=== PATIENT | female | born 1940 | race African-American/Black ===

== ENCOUNTER 2019-05-18 22:59 | Inpatient (IN) | payer MEDICARE ==
[~2019-05-18] VITALS: Ht 170.2 cm; Wt 51.7 kg
[2019-05-18 23:00] VITALS: BP 124/72
--- NOTE | 2019-05-18 23:00 | NUR ---
ED Nurse Note: patient [facility] c/o abdominal pain from home. EMS states that the patient was hypotensive at first in the 80s. at time of arrival patient's blood pressure is 105/72. patient rates her pain a 10/10 on her right lower quadrant. patient denies any nausea and vomiting.
[2019-05-18] MEDS ORDERED: Isovue-300 100ml vial INJ PRN (23:15)
[2019-05-18] MEDS ORDERED: Morphine Sulfate 2mg/ml Inj(IV/IM USE ONLY) IVP ONE (23:15)
--- NOTE | 2019-05-18 23:15 | Emergency Room Report ---
History of Present Illness General Chief Complaint: To Be Triaged Source: Patient, EMS Present Illness HPI The patient presents with abdominal pain that is intermittent. At times it severe at 10/10 but other times is 6/10. It never fully goes away. Been worsening over the last 2 days. She is now moved her bowels for 2 days. She thinks that might be a problem. When I asked her about constipation she denies it. She denies diarrhea also she is not passing any blood in her stool. She not felt any nausea. Her weight is been constant. She denies fevers or chills. There is no dysuria. Not taken any medication for the pain. The patient has a history of colon CA that was diagnosed in 1999. She was undergoing chemotherapy but kept on having to going to ICU because of this. She stopped the chemotherapy and has had no more treatment for the colon cancer since that time. Allergies: Coded Allergies: IODINE (Verified Allergy, Unknown, 05/18/19) Patient History Past Medical History: see triage record, other - Colon cancer Past Surgical History: other - Bowel surgery, bilateral hip surgery, spinal fusion Social History: Reports: smoking Social History Narrative Lives by herself Reviewed Nursing Documentation: PMH: Agreed; PSxH: Agreed Nursing Documentation-PMH Past Medical History: No History, Except For Hx Hypertension: Yes Review of Systems All Other Systems: negative except mentioned in HPI Physical Exam Vital Signs Date Time Temp Pulse Resp B/P (MAP) Pulse Ox O2 Delivery O2 Flow Rate FiO2 05/18/19 22:56 98.1 82 18 107/61 (76) 98 Room Air Sp02 EP Interpretation: reviewed, normal General Appearance: alert, GCS 15, Chronically Ill Head: normocephalic Eyes: bilateral eye PERRL ENT: moist mucus membranes Neck: supple Respiratory: lungs clear, normal breath sounds Cardiovascular #1: regular rate, rhythm Cardiovascular #2: 2+ radial (R) Gastrointestinal: normal inspection, normal bowel sounds, soft, no mass, no guarding, no rebound, distended - Minimally, tenderness - Lower abdomen Genitourinary: no CVA tenderness Musculoskeletal: back normal, normal range of motion Neurologic: alert, oriented x3, grossly normal Psychiatric: mood/affect normal, depressed affect Skin: no rash Medical Decision Making Diagnostic Impression: Primary Impression: Small bowel obstruction Additional Impressions: Abdominal pain Qualified Codes: R10.30 - Lower abdominal pain, unspecified UTI (urinary tract infection) Qualified Codes: N39.0 - Urinary tract infection, site not specified Hyponatremia Renal insufficiency ER Course Patient with a history of colon cancer with chemotherapy that was halted presents with lower abdominal pain for 2 days with lack of moving her bowels. Differential includes small bowel obstruction, impaction, constipation, diverticulitis, UTI amongst others. She is tender and distended. Evaluation with EKG, chest x-ray CT the abdomen and pelvis. In addition she will get IV hydration and laboratory evaluation. She will be treated with analgesia. EKG with no injury. Chest x-ray without seeing the left costophrenic angle there is no infiltrate and no evidence of effusion the maria victoria are prominent. Abdomen films with spinal fusion bilateral hip replacements and diffuse surgical clips without evidence of obstruction. White count normal. No anemia. CMP with low sodium and elevated creatinine. It improved with IV hydration and analgesia. Delayed as CT scan not being read for several hours. Urinalysis with pyuria and Rocephin started. CT scan with small bowel obstruction. Stomach not distended and abdomen not distended. NG tube deferred at the moment. Pain is improved. Patient resting and sleeping. Admit medical floor Dr. Li. He states he will consult Dr. Verduzco. Laboratory Tests Test 05/18/19 23:30 05/19/19 01:10 White Blood Count 8.1 K/UL (4.8-10.8) Red Blood Count 3.72 M/UL (4.20-5.40) L Hemoglobin 14.0 G/DL (12.0-16.0) Hematocrit 38.8 % (37.0-47.0) Mean Corpuscular Volume 104 FL (80-99) H Mean Corpuscular Hemoglobin 37.6 PG (27.0-31.0) H Mean Corpuscular Hemoglobin Concent 36.0 G/DL (32.0-36.0) Red Cell Distribution Width 11.6 % (11.6-14.8) Platelet Count 294 K/UL (150-450) Mean Platelet Volume 5.7 FL (6.5-10.1) L Neutrophils (%) (Auto) % (45.0-75.0) Lymphocytes (%) (Auto) % (20.0-45.0) Monocytes (%) (Auto) % (1.0-10.0) Eosinophils (%) (Auto) % (0.0-3.0) Basophils (%) (Auto) % (0.0-2.0) Prothrombin Time 10.8 SEC (9.30-11.50) Prothrombin Time INR 1.0 (0.9-1.1) PTT 29 SEC (23-33) Sodium Level 124 MMOL/L (136-145) L Potassium Level 3.2 MMOL/L (3.5-5.1) L Chloride Level 87 MMOL/L (98-107) L Carbon Dioxide Level 29 MMOL/L (21-32) Anion Gap 8 mmol/L (5-15) Blood Urea Nitrogen 17 mg/dL (7-18) Creatinine 1.4 MG/DL (0.55-1.30) H Estimate Glomerular Filtration Rate mL/min (>60) Glucose Level 116 MG/DL (74-106) H Calcium Level 9.3 MG/DL (8.5-10.1) Total Bilirubin 1.0 MG/DL (0.2-1.0) Aspartate Amino Transferase (AST) 31 U/L (15-37) Alanine Aminotransferase (ALT) 11 U/L (12-78) L Alkaline Phosphatase 72 U/L (46-116) Troponin I 0.000 ng/mL (0.000-0.056) Total Protein 7.0 G/DL (6.4-8.2) Albumin 4.0 G/DL (3.4-5.0) Globulin 3.0 g/dL Albumin/Globulin Ratio 1.3 (1.0-2.7) Lipase 138 U/L (73-393) Urine Color Yellow Urine Appearance Slightly cloudy Urine pH 7 (4.5-8.0) Urine Specific [place] 1.010 (1.005-1.035) Urine Protein 1+ (NEGATIVE) H Urine Glucose (UA) Negative (NEGATIVE) Urine Ketones 1+ (NEGATIVE) H Urine Blood 2+ (NEGATIVE) H Urine Nitrite Negative (NEGATIVE) Urine Bilirubin Negative (NEGATIVE) Urine Urobilinogen 1 MG/DL (0.0-1.0) H Urine Leukocyte Esterase 3+ (NEGATIVE) H Urine RBC 2-4 /HPF (0 - 2) H Urine WBC Tntc /HPF (0 - 2) H Urine Squamous Epithelial Cells Few /LPF (NONE/OCC) Urine Bacteria Many /HPF (NONE) H EKG Diagnostic Results Rate: normal Rhythm: NSR ST Segments: no acute changes - 1st degree AV block Rhythm Strip Diag. Results EP Interpretation: yes Rhythm: NSR, no PVC's, no ectopy Chest X-Ray Diagnostic Results Chest X-Ray Diagnostic Results : Chest X-Ray Ordered: Yes # of Views/Limited/Complete: 1 View Indication: Other EP Interpretation: Yes Interpretation: no consolidation, no effusion, no pneumothorax Impression: No acute disease Electronically Signed by: Electronically signed by Jaswinder Lopez MD Other X-Ray Diagnostic Results Other X-Ray Diagnostic Results : X-Ray ordered: Abdomen # of Views/Limited Vs Complete: 1 View Indication: Pain EP Interpretation: Yes Interpretation: nonspecific bowel gas, no sbo, other - surgical changes Impression: Other Electronically Signed by: Electronically signed by Jaswinder Lopez MD CT/MRI/US Diagnostic Results CT/MRI/US Diagnostic Results : Imaging Test Ordered: CT abdomen/pelvis Impression Abnormal dilated loops of proximal and mild small bowel consistent with small bowel obstruction. There is collapse of the loops distal ileum to the suture line of the small bowel in the right abdomen. No mucosal thickening. Perihepatic ascites Postsurgical changes lumbar spine with burst fracture L1 Last Vital Signs Date Time Temp Pulse Resp B/P (MAP) Pulse Ox O2 Delivery O2 Flow Rate FiO2 05/19/19 09:11 97.9 05/19/19 09:00 Room Air 05/19/19 08:35 73 18 101/57 (72) 98 Status: improved Disposition: ADMITTED INPATIENT Condition: Serious Jaswinder Loepz MD May 18, 2019 23:15
[2019-05-18 23:54] LABS: HEMATOCRIT 38.8 % (37.0-47.0); MEAN CORPUSCULAR VOLUME 104 FL (80-99); PLATELET COUNT 294 K/UL (150-450); RED BLOOD COUNT 3.72 M/UL (4.20-5.40); RED CELL DISTRIBUTION WIDTH 11.6 % (11.6-14.8); WHITE BLOOD COUNT 8.1 K/UL (4.8-10.8)
[2019-05-19] VITALS (7 sets, daily range): BP systolic 101–124; BP diastolic 57–79
[2019-05-19 00:06] LABS: ANION GAP 8 mmol/L (5-15); BLOOD UREA NITROGEN 17 mg/dL (7-18); CALCIUM 9.3 MG/DL (8.5-10.1); CARBON DIOXIDE 29 MMOL/L (21-32); CHLORIDE 87 MMOL/L (98-107); CREATININE 1.4 MG/DL (0.55-1.30); POTASSIUM 3.2 MMOL/L (3.5-5.1); SODIUM 124 MMOL/L (136-145)
[2019-05-19 00:11] LABS: ALANINE AMINOTRANSFERASE 11 U/L (12-78); ALBUMIN/GLOBULIN RATIO 1.3 (1.0-2.7); ALKALINE PHOSPHATASE 72 U/L (46-116); ASPARTATE AMINO TRANSFERASE 31 U/L (15-37)
--- NOTE | 2019-05-19 00:45 | NUR ---
ED Nurse Note: Patient went down for ct scan
--- NOTE | 2019-05-19 00:57 | NUR ---
ED Nurse Note: Patient came back from CT scan
--- NOTE | 2019-05-19 01:16 | NUR ---
ED Nurse Note: urine sent down
[2019-05-19 01:21] LABS: APPEARANCE,URINE SLIGHTLY CLOUDY; BILIRUBIN, URINE NEGATIVE (NEGATIVE); GLUCOSE, URINE (UA) NEGATIVE (NEGATIVE); KETONES,URINE 1+ (NEGATIVE); LEUKOCYTE ESTERASE ,URINE 3+ (NEGATIVE); NITRITE,URINE NEGATIVE (NEGATIVE); PH,URINE 7 (4.5-8.0); PROTEIN,URINE 1+ (NEGATIVE); UROBILINOGEN,URINE 1 MG/DL (0.0-1.0)
[2019-05-19 01:28] LABS: COLOR,URINE YELLOW
[2019-05-19] MEDS ORDERED: cefTRIAXone 1 GM in NS 55 ML IVPB ONE (02:45)
--- NOTE | 2019-05-19 03:15 | NUR ---
HAND-OFF: Report given to CHICHI Solorzano.
--- NOTE | 2019-05-19 03:15 | Diagnostic Imaging Report ---
EXAM: CT Abdomen and Pelvis With Intravenous Contrast CLINICAL HISTORY: ABD PAIN TECHNIQUE: Axial computed tomography images of the abdomen and pelvis with intravenous contrast. CTDI is 11 mGy and DLP is 562 mGy-cm. One or more of the following dose reduction techniques were used: automated exposure control, adjustment of the mA and/or kV according to patient size, use of iterative reconstruction technique. COMPARISON: No relevant prior studies available. FINDINGS: Lung bases: Bibasilar subsegmental atelectasis in the lungs. ABDOMEN: Liver: Unremarkable. No mass. Gallbladder and bile ducts: Unremarkable. No calcified stones. No ductal dilation. Pancreas: Unremarkable. No mass. No ductal dilation. Spleen: Unremarkable. No splenomegaly. Adrenals: Unremarkable. No mass. Kidneys and ureters: Unremarkable. No solid mass. No hydronephrosis. Stomach and bowel: Abnormally dilated loops of proximal and mid small bowel consistent with small bowel obstruction. There is collapse of the loops of distal ileum distal to the suture line at the small bowel in the right abdomen. No mucosal thickening. PELVIS: Appendix: No findings to suggest acute appendicitis. Bladder: Unremarkable. No mass. Reproductive: Unremarkable as visualized. ABDOMEN and PELVIS: Intraperitoneal space: Mild to moderate perihepatic ascites. No free air. Bones/joints: Limited evaluation of the lower pelvis due to scatter artifact from orthopedic hip hardware. Hardware fixation lumbar spine. Grade 2 anterolisthesis of L4 over L5. There is burst fracture at the L1 vertebral body with evidence of vertebroplasty. This is probably old. No dislocation. Soft tissues: Unremarkable. Vasculature: Atherosclerosis of the abdominal aorta and bilateral iliac arteries. No abdominal aortic aneurysm. Lymph nodes: Unremarkable. No enlarged lymph nodes. IMPRESSION: 1. Findings consistent with small bowel obstruction. 2. Perihepatic ascites. 3. Extensive postsurgical changes in the lumbar spine with burst fracture L1 vertebral body status post vertebroplasty. This is likely chronic.
--- NOTE | 2019-05-19 03:33 | Diagnostic Imaging Report ---
EXAM: XR Chest, 1 View CLINICAL HISTORY: ABD PAIN TECHNIQUE: Frontal view of the chest. COMPARISON: No relevant prior studies available. FINDINGS: Lungs: There are some chronic interstitial changes in the lung bases. No focal consolidation. Pleural space: Unremarkable. No pneumothorax. Heart: Unremarkable. No cardiomegaly. Mediastinum: Unremarkable. Bones/joints: Unremarkable. IMPRESSION: No radiographic evidence of acute cardiopulmonary disease.
--- NOTE | 2019-05-19 03:34 | Diagnostic Imaging Report ---
EXAM: XR Abdomen, 2 Views CLINICAL HISTORY: ABD PAIN TECHNIQUE: Frontal view of the abdomen/pelvis with upright view of the abdomen. COMPARISON: No relevant prior studies available. FINDINGS: Intraperitoneal space: Dilated loops of small bowel consistent with small bowel obstruction. No free air. Gastrointestinal tract: Unremarkable. No dilation. Bones/joints: Lumbar spine and bilateral hip hardware. IMPRESSION: Findings consistent with small bowel obstruction.
--- NOTE | 2019-05-19 03:50 | NUR ---
TRANSFER TO FLOOR: Patient transferred to as ordered, per Dr Li. Report given to CHICHI Cartwright . Belongings and medications given to . Family and or S/O informed of transfer.
[2019-05-19] MEDS ORDERED: NKM (04:32)
--- NOTE | 2019-05-19 04:42 | NUR ---
NURSE NOTES: RECEIVED PATIENT FROM ER, GOT REPORT FROM CHICHI GOYAL. PATIENT IN BED, AOX4. IV IN PLACE. NO COMPLAINTS OF PAIN AT THIS TIME. NO S/S DISTRESS NOTED. PATIENT REPORTS PAIN AND TENDERNESS ON RLQ WHEN PALPATED. SKI ASSESSMENT DONE, NO OPEN WOUND/PRESSURE ULCERS NOTED, SKIN INTACT. PATIENT STATES ONLY MEDICAL HISTORY IS HYPERTENSION AND JUAN DIEGO THE ONLY MEDICATION SHE TAKES AT HOME IS FOR HER BLOOD PRESSURE. BUT PATIENT DOES NOT REMEMBER THE MEDICATION NAME OR DOSAGE. BELONGINGS REVIEWED - 1 NECKLACE, 1 WATCH, 1 FAKE TOOTH, AND HER PJS, PATIENT REFUSED TO HAVE HER BELONGINGS PUT IN THE SAFE AND SIGNED THE BELONGINGS LIST. BED IN LOWEST POSITION, LOCKED, CALL LIGHT WITHIN REACH, BED ALARM ON. WILL CONTINUE TO MONITOR. CALLED AND LEFT A MESSAGE FOR DR. BOUDREAUX'S ANSWERING SERVICE FOR ADMISSION ORDERS, AWAITING RESPONSE.
--- NOTE | 2019-05-19 05:53 | NUR ---
NURSE NOTES: RECEIVED ADMISSION ORDERS FROM DR. BOUDREAUX, ORDERS CARRIED OUT. CLARIFIED WITH MD IF HE STILL WANTED A REPEAT KUB TO BE DONE SINCE IT WAS ALREADY DONE IN THE ER, DR. BOUDREAUX SAID YES HE STILL WANTS KUB TO BE DONE.
--- NOTE | 2019-05-19 07:23 | NUR ---
HAND-OFF: Report given to TYSON MCFADDEN RN. ENDORSED TO AM NURSE TO FOLLOW UP WITH DR. BOUDREAUX REGARDING PATIENT'S CODE STATUS AND DVT PROPHYLAXIS.
--- NOTE | 2019-05-19 07:37 | NUR ---
NURSE NOTES: Patient alert x4, on room air, no sign of distress and shortness of breath; IV LAC NS 100 running; bed at lowest position, side rails up x2, breaks engaged; patient NPO, signs noted at the door, skilled nursing facility counselor Berenice made aware; call light within reach; will keep monitoring.
--- NOTE | 2019-05-19 07:55 | NUR ---
NURSE NOTES: I communicated Dr Li regarding patient's K 3.2. Waiting for order.
[2019-05-19] MEDS: Morphine Sulfate 2mg/ml Inj(IV/IM USE ONLY) IVP PRN ×2 (08:41→14:28)
--- NOTE | 2019-05-19 09:57 | Diagnostic Imaging Report ---
EXAM: XR Abdomen, 2 Views CLINICAL HISTORY: ABD PAIN TECHNIQUE: Frontal view of the abdomen/pelvis with upright view of the abdomen. COMPARISON: CT abdomen and pelvis and abdominal x-rays performed earlier on 05/19/19 FINDINGS: Lower thorax: No evidence of free or beneath the diaphragm. Intraperitoneal space: No free air. Gastrointestinal tract: Diffuse gaseous distention of small bowel loops, with maximum diameter 4.6 cm. This is concerning for ileus versus small bowel obstruction. Relative paucity of gas in the colon. Bones/joints: Patient is status post bilateral hip replacement and status post posterior lumbar spinal fixation. Patient is status post cemented vertebroplasty at L1. IMPRESSION: Diffuse gaseous distention of small bowel loops, with maximum diameter 4.6 cm. This is concerning for small bowel obstruction. Small bowel distention is worsened compared to the prior x-ray.
--- NOTE | 2019-05-19 15:22 | History & Physical ---
History and Physical History & Physicial 78 year old female presents with small bowel obstruction patient with history of colon ca confirmed by imaging currently with nausea PMH colon ca hypertension MEDS and ALLERGIES noted and reviewed SOCIAL retired nonsmoker or drinker PHYSICAL WDWN NAD clear breath sounds bilaterally without rhonchi or wheeze [id number] without MRG reduced bowel sounds with tenderness no CCE nonfocal Labs Test 05/18/19 23:30 05/19/19 01:10 White Blood Count 8.1 K/UL (4.8-10.8) Red Blood Count 3.72 M/UL (4.20-5.40) Hemoglobin 14.0 G/DL (12.0-16.0) Hematocrit 38.8 % (37.0-47.0) Mean Corpuscular Volume 104 FL (80-99) Mean Corpuscular Hemoglobin 37.6 PG (27.0-31.0) Mean Corpuscular Hemoglobin Concent 36.0 G/DL (32.0-36.0) Red Cell Distribution Width 11.6 % (11.6-14.8) Platelet Count 294 K/UL (150-450) Mean Platelet Volume 5.7 FL (6.5-10.1) Neutrophils (%) (Auto) % (45.0-75.0) Lymphocytes (%) (Auto) % (20.0-45.0) Monocytes (%) (Auto) % (1.0-10.0) Eosinophils (%) (Auto) % (0.0-3.0) Basophils (%) (Auto) % (0.0-2.0) Prothrombin Time 10.8 SEC (9.30-11.50) Prothromb Time International Ratio 1.0 (0.9-1.1) Activated Partial Thromboplast Time 29 SEC (23-33) Sodium Level 124 MMOL/L (136-145) Potassium Level 3.2 MMOL/L (3.5-5.1) Chloride Level 87 MMOL/L (98-107) Carbon Dioxide Level 29 MMOL/L (21-32) Anion Gap 8 mmol/L (5-15) Blood Urea Nitrogen 17 mg/dL (7-18) Creatinine 1.4 MG/DL (0.55-1.30) Estimat Glomerular Filtration Rate mL/min (>60) Glucose Level 116 MG/DL (74-106) Calcium Level 9.3 MG/DL (8.5-10.1) Total Bilirubin 1.0 MG/DL (0.2-1.0) Aspartate Amino Transf (AST/SGOT) 31 U/L (15-37) Alanine Aminotransferase (ALT/SGPT) 11 U/L (12-78) Alkaline Phosphatase 72 U/L (46-116) Troponin I 0.000 ng/mL (0.000-0.056) Total Protein 7.0 G/DL (6.4-8.2) Albumin 4.0 G/DL (3.4-5.0) Globulin 3.0 g/dL Albumin/Globulin Ratio 1.3 (1.0-2.7) Lipase 138 U/L (73-393) Urine Color Yellow Urine Appearance Slightly cloudy Urine pH 7 (4.5-8.0) Urine Specific [place] 1.010 (1.005-1.035) Urine Protein 1+ (NEGATIVE) Urine Glucose (UA) Negative (NEGATIVE) Urine Ketones 1+ (NEGATIVE) Urine Blood 2+ (NEGATIVE) Urine Nitrite Negative (NEGATIVE) Urine Bilirubin Negative (NEGATIVE) Urine Urobilinogen 1 MG/DL (0.0-1.0) Urine Leukocyte Esterase 3+ (NEGATIVE) Urine RBC 2-4 /HPF (0 - 2) Urine WBC Tntc /HPF (0 - 2) Urine Squamous Epithelial Cells Few /LPF (NONE/OCC) Urine Bacteria Many /HPF (NONE) IMPRESSION small bowel obstruction abdominal pain colon ca possible UTI PLAN NPO pain control GI and GS impression, plan, and exam edited and reviewed in detail care discussed with Gagandeep Madrigal MD May 19, 2019 15:22
--- NOTE | 2019-05-19 16:25 | NUR ---
CASE MANAGEMENT: INITIAL REVIEW 78 YO F PRESENTED TO OUR ED [facility] CC: FTT. SEPSIS. UTI. HTN. PMHx: HTN. CHF. SI:ABD PAIN. HYPERTENSIVE URGENCY. T 99.9 HR 98 RR 18 B/P 180/95 SATS 97% ON RA BUN 27 CR 1.7 GLU 118 BNP 1756 IS:IVF @ 100 mL/HR ZOSYN IV Q8H HYDRALAZINE PO Q8H CLONIDINE PO Q12H NORVASC PO QD K DUR PO X1 PATIENT ADMITTED TO MED/SURG UNDER OBS 05/16/2019 @ 2137 DCP: PATIENT TO BE DISCHARGED TO HOME ONCE MEDICALLY CLEARED. PLAN OF CARE: Titrate antihypertensives 2D ECHO Addendum: 05/19/19 at 1637 by Alma Nielsen CM INTERQUAL MET
--- NOTE | 2019-05-19 16:42 | NUR ---
CHARGE NURSE NOTE: Notified that X-ray of abdomen result worsened. will be a consult as a surgeon.
[2019-05-19] MEDS ORDERED: Potassium Chl 10mEq/100ml 110 ML IV SCH (18:00)
--- NOTE | 2019-05-19 18:01 | NUR ---
NURSE NOTES: The order for KCl 10mEq fell off and I called pharmacy. I was told to re-enter a one time order and hung the last bag. When I scan and hung the last bag, I used the previous bag due time and I did non admit on the new entry of the order. Pharmacist and charge nurse is aware.
--- NOTE | 2019-05-19 18:45 | Consultation ---
DATE OF CONSULTATION: 05/19/2019 CONSULTING PHYSICIAN: Redd Hanson M.D. REFERRING PHYSICIAN: Gagandeep Li M.D. REASON FOR CONSULTATION: 1. Hyponatremia. 2. Acute kidney injury. HISTORY OF PRESENT ILLNESS: The patient is a 78-year-old female who presented to emergency room for further evaluation and care of abdominal pain, noted to have small bowel obstruction. The patient had been diagnosed with colon cancer back in 1999. Question is to the length and treatment of chemotherapy for this colon cancer. General Surgery was consulted for bowel obstruction. The patient was noted to have electrolyte abnormalities yesterday. Her serum sodium was 124, potassium was 3.2 with creatinine of 1.4. The patient denies any current nausea. She has not been eating currently. PAST MEDICAL HISTORY: 1. Colon cancer. 2. Hypertension. PAST SURGICAL HISTORY: Noncontributory. ALLERGIES: Iodine. SOCIAL HISTORY: No current tobacco, alcohol, or illicit drug use. The patient is retired. FAMILY HISTORY: Positive for hypertension. REVIEW OF SYSTEMS: NEUROLOGIC: The patient denies headache, change in vision, syncope, or presyncopal episodes. CARDIOVASCULAR: No current chest pain, palpitations, or angina. PULMONARY: No difficulty breathing, productive cough, or sputum. GASTROINTESTINAL/GENITOURINARY: The patient is having abdominal pain. No current nausea, vomiting or diarrhea. ENDOCRINOLOGY: No night sweats, fever, or chills MUSCULOSKELETAL: The patient is feeling weak, tired and fatigue. PHYSICAL EXAMINATION: VITAL SIGNS: Blood pressure 119/72, respiratory rate 19, pulse 79, and temperature 98.6. 98% oxygen saturation on room air. GENERAL: The patient is awake and alert, not otherwise in distress. Mildly confused. HEENT: Extraocular muscles intact. No lymphadenopathy noted. CARDIOVASCULAR: S1, S2. No rubs or gallops. PULMONARY: Clear to auscultation bilaterally. No rales, rhonchi or wheezes. ABDOMEN: Soft, nondistended. Very quiet to no bowel sounds. EXTREMITIES: No edema noted. LABORATORY DATA: Labs dated 05/18/2019 - sodium 124, potassium 3.2, creatinine 1.4. Troponin 0. Hemoglobin 14, white cell count 8.1, and platelet count 294. ASSESSMENT AND PLAN: 1. Hyponatremia. This time could be secondary to volume depletion. The patient was hydrated overnight. We will order stat labs to evaluate and address current lab status. 2. Hypokalemia. It could cause worsening of bowel obstruction, was replaced with potassium. We will order stat BMP. 3. Acute versus chronic kidney disease. Baseline creatinine not known. Repeat BMP post hydration. Hopefully just prerenal dehydration causing elevated creatinine. 4. Small bowel obstruction, history of colon cancer. Defer management to General Surgery. Let me take this opportunity to thank Dr. Li for allowing me to assist in the care of this patient. Redd Hanson MD DR: MARIELA JOB#: [id number] CC:
--- NOTE | 2019-05-19 18:45 | Consultation ---
DATE OF CONSULTATION: 05/19/2019 GASTROENTEROLOGY CONSULTATION CONSULTING PHYSICIAN: Xander Tavarez M.D. REFERRING PHYSICIAN: Gagandeep Li M.D. CHIEF COMPLAINT: I was asked to see this patient by Dr. Gagandeep Li for evaluation of bowel obstruction. HISTORY OF PRESENT ILLNESS: The patient is a pleasant 78-year-old woman, who is a poor historian, who comes in to the hospital due to 3-day history of abdominal discomfort and vomiting. She has no diarrhea or fevers. She has a midline infraumbilical scar, but she is not sure what kind of surgery she had. She states she had had hysterectomy, but there are no remarks of hysterectomy on CT scan. There was also chart reports of colon cancer surgery. In either case, she has had some type of surgery since the clips are seen on the CT scan. Just around the clips, there is evidence of partial small-bowel obstruction in the distal small bowel. Therefore, the patient was admitted. PAST MEDICAL HISTORY: History of hypertension, likely dementia, and some type of intra-abdominal surgery. MEDICATIONS: Noted. FAMILY HISTORY: Noncontributory. SOCIAL HISTORY: The patient is . She drinks occasionally. She smokes a pack a day of cigarettes. REVIEW OF SYSTEMS: Otherwise negative. PHYSICAL EXAMINATION: GENERAL: A pleasant woman, seen in her room. HEENT: Normocephalic and atraumatic. Sclerae anicteric. Oropharynx clear. NECK: Supple. CHEST: Clear to auscultation. CARDIOVASCULAR: Revealed regular rate. ABDOMEN: Soft, mildly tender in the lower quadrants without guarding or rebound. EXTREMITIES: Revealed no edema. LABORATORY DATA: Noted. ASSESSMENT: This patient presents with partial small-bowel obstruction based on CT scan appearance. The transition is somewhere in the distal small bowel near the surgical clips. It is likely a postoperative phenomenon and should be treated conservatively. The patient will be kept n.p.o. for now and exam will be followed. Once improved, then diet can be started slowly as tolerated. RECOMMENDATIONS: Per above discussion and per orders written in the chart. Thank you for asking me to participate in the care of this patient. Xander Tavarez M.D. DR: Julee JOB#: [id number] CC:
[2019-05-19 19:01] LABS: ANION GAP 10 mmol/L (5-15); BLOOD UREA NITROGEN 17 mg/dL (7-18); CALCIUM 8.6 MG/DL (8.5-10.1); CARBON DIOXIDE 25 MMOL/L (21-32); CHLORIDE 91 MMOL/L (98-107); CREATININE 1.1 MG/DL (0.55-1.30); POTASSIUM 4.1 MMOL/L (3.5-5.1); SODIUM 125 MMOL/L (136-145)
--- NOTE | 2019-05-19 19:46 | NUR ---
NURSE NOTES: Received patient in bed, alert, oriented x 4, on room air, no acute distress noted, VSS, afebrile, able to make her needs known. Call light is within reach, bed is in low position, locked and alarm is on. Will continue to monitor for safety and comfort.
--- NOTE | 2019-05-19 19:57 | NUR ---
HAND-OFF: Report given to CHICHI Kramer.
[2019-05-19] MEDS: Cefepime HCl 1 GM in D5W 55 ML IVPB SCH (20:53)
--- NOTE | 2019-05-19 21:45 | Cardiology Report ---
APPROVED REPORT EKG Measurement Heart [id number] IN [id number] Sinus rhythm with 1st degree AV block Biatrial enlargement Abnormal ECG
[2019-05-20] VITALS: BP 138/73
[2019-05-20 04:02] VITALS: BP 131/74
[2019-05-20 06:08] LABS: BASOPHILS % (AUTO) 1.1 % (0.0-2.0); EOSINOPHILS % (AUTO) 0.3 % (0.0-3.0); HEMATOCRIT 38.3 % (37.0-47.0); HEMOGLOBIN 13.4 G/DL (12.0-16.0); LYMPHOCYTES % (AUTO) 10.6 % (20.0-45.0); MEAN CORPUSCULAR VOLUME 105 FL (80-99); PLATELET COUNT 242 K/UL (150-450); RED BLOOD COUNT 3.64 M/UL (4.20-5.40); RED CELL DISTRIBUTION WIDTH 12.9 % (11.6-14.8); WHITE BLOOD COUNT 5.4 K/UL (4.8-10.8)
[2019-05-20 06:55] LABS: ANION GAP 10 mmol/L (5-15); BLOOD UREA NITROGEN 17 mg/dL (7-18); CALCIUM 8.6 MG/DL (8.5-10.1); CARBON DIOXIDE 25 MMOL/L (21-32); CHLORIDE 89 MMOL/L (98-107); CREATININE 1.1 MG/DL (0.55-1.30); POTASSIUM 3.6 MMOL/L (3.5-5.1); SODIUM 124 MMOL/L (136-145)
--- NOTE | 2019-05-20 07:33 | NUR ---
HAND-OFF: Report given to Dafne CADET.
--- NOTE | 2019-05-20 07:44 | NUR ---
NURSE NOTES: RN received pt in stable condition, alert in bed. No s/sof acute distress or SOB. No complaints of pain. Bed in low, locked position, call light within reach. Will continue plan of care.
--- NOTE | 2019-05-20 07:48 | Nephrology Progress Note ---
Assessment/Plan Assessment/Plan: A/P 1) YANELI- resolved, prerenal in nature. Cr 1.1 2) Hyponatremia- Na 124. Continue IVFs - poss SIADH from malignancy - work up ordered - possible 1 dose Samsca if Na worsens - NPO for now 3) SBO- per GI mgmt Subjective Date patient seen: May 20, 2019 Time patient seen: 07:39 ROS Limited/Unobtainable: No Allergies: Coded Allergies: IODINE (Verified Allergy, Unknown, 05/18/19) Subjective Patient remains slightly confused Objective Last 24 Hour Vital Signs Date Time Temp Pulse Resp B/P (MAP) Pulse Ox O2 Delivery O2 Flow Rate FiO2 05/20/19 04:02 97.9 77 18 131/74 (93) 05/20/19 00:00 99.0 90 18 138/73 (94) 05/19/19 21:00 Room Air 05/19/19 20:00 99.2 92 18 116/68 (84) 05/19/19 16:00 97.1 82 18 118/79 (92) 97 05/19/19 14:58 98.6 05/19/19 12:00 98.6 79 19 119/72 (88) 96 05/19/19 09:00 Room Air 05/19/19 08:35 97.9 73 18 101/57 (72) 98 Intake and Output 05/19/19 05/20/19 18:59 06:59 Intake Total 410 ml Balance 410 ml Intake IV Total 410 ml # Voids 1 Laboratory Tests 05/19/19 18:00: Sodium Level 125L, Potassium Level 4.1, Chloride Level 91L, Carbon Dioxide Level 25, Anion Gap 10, Blood Urea Nitrogen 17, Creatinine 1.1, Estimat Glomerular Filtration Rate , Glucose Level 98, Calcium Level 8.6 05/20/19 05:19: Sodium Level 124L, Potassium Level 3.6, Chloride Level 89L, Carbon Dioxide Level 25, Anion Gap 10, Blood Urea Nitrogen 17, Creatinine 1.1, Estimat Glomerular Filtration Rate , Glucose Level 86, Calcium Level 8.6, White Blood Count 5.4, Red Blood Count 3.64L, Hemoglobin 13.4, Hematocrit 38.3, Mean Corpuscular Volume 105H, Mean Corpuscular Hemoglobin 36.9H, Mean Corpuscular Hemoglobin Concent 35.1, Red Cell Distribution Width 12.9, Platelet Count 242, Mean Platelet Volume 5.4L, Neutrophils (%) (Auto) 81.0H, Lymphocytes (%) (Auto) 10.6L, Monocytes (%) (Auto) 7.0, Eosinophils (%) (Auto) 0.3, Basophils (%) (Auto ) 1.1 Height (Feet): 5 Height (Inches): 7.00 Weight (Pounds): 121 General Appearance: no apparent distress EENT: normal ENT inspection Neck: normal alignment, supple Cardiovascular: normal rate, regular rhythm Respiratory/Chest: lungs clear, normal breath sounds Abdomen: non tender, soft Edema: no edema noted Arm (L), no edema noted Arm (R), no edema noted Leg (L), no edema noted Leg (R), no edema noted Pedal (L), no edema noted Pedal (R), no edema noted Generalized Redd Hanson MD May 20, 2019 07:48
[2019-05-20 08:00] VITALS: BP 130/70
--- NOTE | 2019-05-20 09:49 | NUR ---
[facility] [employer] [facility] [employer] THER[employer] SI:HYPONATREMIA . SBO VS: BP 138/73, P 92, T 97.1, RR 18, SpO2 97 RBC 3.64, Na 124 IS:PROTONIX 40mg CEFEPIME 55ml IVPB POTASSIUM CHLORIDE 100ml IVPB SODIUM CHLORIDE x1L IV MORPHINE SULFATE 2mg MED/SURG STATUS
--- NOTE | 2019-05-20 11:42 | General Progress Note ---
Assessment/Plan Assessment/Plan: Assessment - SBO/PSBO - KUB yesterday slightly worse Recommendations - NPO - IVF - place NGT for decomp - check KUB - If KUB worse --> surgical consult - follow labs Subjective Allergies: Coded Allergies: IODINE (Verified Allergy, Unknown, 05/18/19) Subjective Feels OK /Same no vomiting Objective Last 24 Hour Vital Signs Date Time Temp Pulse Resp B/P (MAP) Pulse Ox O2 Delivery O2 Flow Rate FiO2 05/20/19 08:00 98.1 80 18 130/70 (90) 97 05/20/19 04:02 97.9 77 18 131/74 (93) 05/20/19 00:00 99.0 90 18 138/73 (94) 05/19/19 21:00 Room Air 05/19/19 20:00 99.2 92 18 116/68 (84) 05/19/19 16:00 97.1 82 18 118/79 (92) 97 05/19/19 14:58 98.6 05/19/19 12:00 98.6 79 19 119/72 (88) 96 Intake and Output 05/19/19 05/20/19 18:59 06:59 Intake Total 410 ml Balance 410 ml Intake IV Total 410 ml # Voids 1 Laboratory Tests 05/19/19 18:00: Sodium Level 125L, Potassium Level 4.1, Chloride Level 91L, Carbon Dioxide Level 25, Anion Gap 10, Blood Urea Nitrogen 17, Creatinine 1.1, Estimat Glomerular Filtration Rate , Glucose Level 98, Calcium Level 8.6 05/20/19 05:19: Sodium Level 124L, Potassium Level 3.6, Chloride Level 89L, Carbon Dioxide Level 25, Anion Gap 10, Blood Urea Nitrogen 17, Creatinine 1.1, Estimat Glomerular Filtration Rate , Glucose Level 86, Calcium Level 8.6, White Blood Count 5.4, Red Blood Count 3.64L, Hemoglobin 13.4, Hematocrit 38.3, Mean Corpuscular Volume 105H, Mean Corpuscular Hemoglobin 36.9H, Mean Corpuscular Hemoglobin Concent 35.1, Red Cell Distribution Width 12.9, Platelet Count 242, Mean Platelet Volume 5.4L, Neutrophils (%) (Auto) 81.0H, Lymphocytes (%) (Auto) 10.6L, Monocytes (%) (Auto) 7.0, Eosinophils (%) (Auto) 0.3, Basophils (%) (Auto ) 1.1, Osmolality 263L, Uric Acid 4.8, Thyroid Stimulating Hormone (TSH) 2.043 Height (Feet): 5 Height (Inches): 7.00 Weight (Pounds): 121 Objective WDWN AA woman NCAT supple CTA RRR abd soft ND, (+) TTP epigastric and b/l UQ no edema non focal Xander Tavarez MD May 20, 2019 11:42
[2019-05-20 12:00] VITALS: BP 133/74
--- NOTE | 2019-05-20 13:25 | NUR ---
NURSE NOTES: RN inserted NG tube per MD order with charge nurse. Pt tolerated procedure well. Xray confirmed placement. Suction set to low per MD request. Awaiting KUB. RN to f/u with w/ results.
--- NOTE | 2019-05-20 13:40 | Diagnostic Imaging Report ---
Indication: NG tube placement Comparison: None Single view of the abdomen obtained Findings: NG tube is present with the side port and tip in the stomach. IMPRESSION: NG tube satisfactory position
--- NOTE | 2019-05-20 13:53 | Consultation ---
History of Present Illness General Date patient seen: May 20, 2019 Reason for Hospitalization: Abdominal Pain Present Illness HPI this is a pleasant 78 year old female with history of prior colon cancer and other comorbidities who presented with acute onset abdominal pain, nausea and emesis. patient is a poor historian and is accompanied by her son who is unsure of full medical and surgical history. as per patient and family she was okay until day prior to admission when she began to complain of abdominal pain, nausea and had multiple episodes of non bloody emesis. no fever or chills. in ED noted to have possible sbo on CT. surgery called to evaluate. patient seen, chart reviewed, patient examined. cannot recall last BM or flatus Allergies: Coded Allergies: IODINE (Verified Allergy, Unknown, 05/18/19) Medication History Scheduled No Known Medications* (NKM - No Known Medications*), 0 ., (Reported) Patient History Limited by: age History Provided By: Patient, Medical Record, PMD Healthcare decision maker Resuscitation status Advanced Directive on File Past Medical/Surgical History Past Medical/Surgical History: (1) Abdominal pain (2) Hyponatremia (3) Renal insufficiency (4) UTI (urinary tract infection) (5) Small bowel obstruction Review of Systems Review of Symptoms General ROS: no weight loss or fever Psychological ROS: no depression or mood changes, no memory loss Ophthalmic ROS: no visual changes or eye irritation ENT ROS: no nasal congestion, hearing loss, dizziness Allergy and Immunology ROS: no allergic symptoms or urticaria Hematological and Lymphatic ROS: no swollen glands, unusual bleeding or bruising Endocrine ROS: no polyuria, polydipsia, weight changes, temperature intolerance Respiratory ROS: no cough, shortness of breath, or wheezing Cardiovascular ROS: no chest pain or dyspnea on exertion Gastrointestinal ROS: denies abdominal pain, no bright red blood in stool. Musculoskeletal ROS: no myalgias or arthralgias Neurological ROS: no TIA or stroke symptoms Dermatological ROS: no new or changing skin lesions, rashes or pruritis Physical Exam Physical Exam General appearance: alert, cooperative, no distress, appears stated age Head: Normocephalic, without obvious abnormality, atraumatic Eyes: conjunctivae/corneas clear. PERRL, EOM's intact. Fundi benign Throat: Lips, mucosa, and tongue normal. Teeth and gums normal Neck: supple, symmetrical, trachea midline, no adenopathy, thyroid: not enlarged, symmetric, no tenderness/mass/nodules, no carotid bruit and no JVD Lungs: clear to auscultation bilaterally Heart: regular rate and rhythm, S1, S2 normal, no murmur, click, rub or gallop Abdomen: soft, mild discomfort on palpation. Bowel sounds decreased, mild distention. No masses, no organomegaly Extremities: extremities normal, atraumatic, no cyanosis or edema Pulses: 2+ and symmetric Skin: Skin color, texture, turgor normal. No rashes or lesions Neurologic: Grossly normal Last 24 Hour Vital Signs Date Time Temp Pulse Resp B/P (MAP) Pulse Ox O2 Delivery O2 Flow Rate FiO2 05/20/19 12:00 98.3 82 18 133/74 (93) 98 05/20/19 09:00 Room Air 05/20/19 08:00 98.1 80 18 130/70 (90) 97 05/20/19 04:02 97.9 77 18 131/74 (93) 05/20/19 00:00 99.0 90 18 138/73 (94) 05/19/19 21:00 Room Air 05/19/19 20:00 99.2 92 18 116/68 (84) 05/19/19 16:00 97.1 82 18 118/79 (92) 97 05/19/19 14:58 98.6 Intake and Output 05/19/19 05/20/19 19:00 07:00 Intake Total 410 ml Balance 410 ml Intake IV Total 410 ml # Voids 1 Laboratory Tests Test 05/19/19 18:00 05/20/19 05:19 Sodium Level 125 MMOL/L (136-145) L 124 MMOL/L (136-145) L Potassium Level 4.1 MMOL/L (3.5-5.1) 3.6 MMOL/L (3.5-5.1) Chloride Level 91 MMOL/L (98-107) L 89 MMOL/L (98-107) L Carbon Dioxide Level 25 MMOL/L (21-32) 25 MMOL/L (21-32) Anion Gap 10 mmol/L (5-15) 10 mmol/L (5-15) Blood Urea Nitrogen 17 mg/dL (7-18) 17 mg/dL (7-18) Creatinine 1.1 MG/DL (0.55-1.30) 1.1 MG/DL (0.55-1.30) Estimat Glomerular Filtration Rate mL/min (>60) mL/min (>60) Glucose Level 98 MG/DL (74-106) 86 MG/DL (74-106) Calcium Level 8.6 MG/DL (8.5-10.1) 8.6 MG/DL (8.5-10.1) White Blood Count 5.4 K/UL (4.8-10.8) Red Blood Count 3.64 M/UL (4.20-5.40) L Hemoglobin 13.4 G/DL (12.0-16.0) Hematocrit 38.3 % (37.0-47.0) Mean Corpuscular Volume 105 FL (80-99) H Mean Corpuscular Hemoglobin 36.9 PG (27.0-31.0) H Mean Corpuscular Hemoglobin Concent 35.1 G/DL (32.0-36.0) Red Cell Distribution Width 12.9 % (11.6-14.8) Platelet Count 242 K/UL (150-450) Mean Platelet Volume 5.4 FL (6.5-10.1) L Neutrophils (%) (Auto) 81.0 % (45.0-75.0) H Lymphocytes (%) (Auto) 10.6 % (20.0-45.0) L Monocytes (%) (Auto) 7.0 % (1.0-10.0) Eosinophils (%) (Auto) 0.3 % (0.0-3.0) Basophils (%) (Auto) 1.1 % (0.0-2.0) Osmolality 263 mOsm/kg (297-317) L Uric Acid 4.8 MG/DL (2.6-7.2) Thyroid Stimulating Hormone (TSH) 2.043 uiU/mL (0.358-3.740) Height (Feet): 5 Height (Inches): 7.00 Weight (Pounds): 121 Medications Current Medications Medications (Trade) Dose Ordered Sig/Willian Route PRN Reason Start Time Stop Time Status Last Admin Dose Admin Cefepime HCl 1 gm/ Dextrose 55 ml @ 110 mls/hr Q24H IVPB 05/19/19 18:00 05/26/19 17:59 05/19/19 20:53 Morphine Sulfate (Morphine Sulfate) 2 mg Q3H PRN IVP For Pain 05/19/19 05:15 05/26/19 05:14 05/19/19 14:28 Ondansetron HCl (Zofran) 4 mg Q6H PRN IVP Nausea & Vomiting 05/19/19 05:15 06/18/19 05:14 Pantoprazole (Protonix) 40 mg EVERY 12 HOURS ORAL 05/19/19 09:00 06/18/19 08:59 05/20/19 09:19 Sodium Chloride 1,000 ml @ 100 mls/hr Q10H IV 05/19/19 06:00 06/18/19 05:59 05/19/19 06:23 Assessment/Plan Problem List: (1) Hyponatremia ICD Codes: E87.1 - Hypo-osmolality and hyponatremia SNOMED: 17005579 (2) Renal insufficiency ICD Codes: N28.9 - Disorder of kidney and ureter, unspecified SNOMED: 966381036, 166015804 (3) UTI (urinary tract infection) ICD Codes: N39.0 - Urinary tract infection, site not specified SNOMED: 12291520, 740528825 Qualifiers: Qualified Codes: N39.0 - Urinary tract infection, site not specified (4) Small bowel obstruction Assessment & Plan: 78 year old female with abdominal pain, nausea, emesis, possible sbo. afebrile, HD stable, labs noted CT as below. patient states prior abdominal surgery from anterior exposure of spine surgery and possible bowel resection for cancer but unsure of details. NG tube just placed place tube to suction NPO IV fluids AM KUB will follow with serial exams if does not improved in next 24-48hrs will need surgery. same if worsening thank you ICD Codes: K56.609 - Unspecified intestinal obstruction, unspecified as to partial versus complete obstruction SNOMED: 236736478 (5) Abdominal pain ICD Codes: R10.9 - Unspecified abdominal pain SNOMED: 94880261 Qualifiers: Qualified Codes: R10.30 - Lower abdominal pain, unspecified Javier Urbina May 20, 2019 13:53
--- NOTE | 2019-05-20 14:47 | NUR ---
INSURANCE UPDATED CLINICALS AND REVIEW HAVE BEEN FAXED TO: [facility] PLEASE FAX THE REVIEW AND CLINICAL TO FX: [phone] PH: [phone]
--- NOTE | 2019-05-20 14:54 | Pulmonology Progress Note ---
Assessment/Plan Assessment/Plan Pulmonary Progress Note 78 year old female presents with small bowel obstruction patient with history of colon ca confirmed by imaging currently with nausea Hyponatremia PMH colon ca hypertension MEDS and ALLERGIES noted and reviewed SOCIAL retired nonsmoker or drinker PHYSICAL Vital signs noted WDWN NAD clear breath sounds bilaterally without rhonchi or wheeze [id number] without MRG reduced bowel sounds with tenderness no CCE nonfocal Labs Noted Test 05/18/19 23:30 05/19/19 01:10 White Blood Count 8.1 K/UL (4.8-10.8) Red Blood Count 3.72 M/UL (4.20-5.40) Hemoglobin 14.0 G/DL (12.0-16.0) Hematocrit 38.8 % (37.0-47.0) Mean Corpuscular Volume 104 FL (80-99) Mean Corpuscular Hemoglobin 37.6 PG (27.0-31.0) Mean Corpuscular Hemoglobin Concent 36.0 G/DL (32.0-36.0) Red Cell Distribution Width 11.6 % (11.6-14.8) Platelet Count 294 K/UL (150-450) Mean Platelet Volume 5.7 FL (6.5-10.1) Neutrophils (%) (Auto) % (45.0-75.0) Lymphocytes (%) (Auto) % (20.0-45.0) Monocytes (%) (Auto) % (1.0-10.0) Eosinophils (%) (Auto) % (0.0-3.0) Basophils (%) (Auto) % (0.0-2.0) Prothrombin Time 10.8 SEC (9.30-11.50) Prothromb Time International Ratio 1.0 (0.9-1.1) Activated Partial Thromboplast Time 29 SEC (23-33) Sodium Level 124 MMOL/L (136-145) Potassium Level 3.2 MMOL/L (3.5-5.1) Chloride Level 87 MMOL/L (98-107) Carbon Dioxide Level 29 MMOL/L (21-32) Anion Gap 8 mmol/L (5-15) Blood Urea Nitrogen 17 mg/dL (7-18) Creatinine 1.4 MG/DL (0.55-1.30) Estimat Glomerular Filtration Rate mL/min (>60) Glucose Level 116 MG/DL (74-106) Calcium Level 9.3 MG/DL (8.5-10.1) Total Bilirubin 1.0 MG/DL (0.2-1.0) Aspartate Amino Transf (AST/SGOT) 31 U/L (15-37) Alanine Aminotransferase (ALT/SGPT) 11 U/L (12-78) Alkaline Phosphatase 72 U/L (46-116) Troponin I 0.000 ng/mL (0.000-0.056) Total Protein 7.0 G/DL (6.4-8.2) Albumin 4.0 G/DL (3.4-5.0) Globulin 3.0 g/dL Albumin/Globulin Ratio 1.3 (1.0-2.7) Lipase 138 U/L (73-393) Urine Color Yellow Urine Appearance Slightly cloudy Urine pH 7 (4.5-8.0) Urine Specific [place] 1.010 (1.005-1.035) Urine Protein 1+ (NEGATIVE) Urine Glucose (UA) Negative (NEGATIVE) Urine Ketones 1+ (NEGATIVE) Urine Blood 2+ (NEGATIVE) Urine Nitrite Negative (NEGATIVE) Urine Bilirubin Negative (NEGATIVE) Urine Urobilinogen 1 MG/DL (0.0-1.0) Urine Leukocyte Esterase 3+ (NEGATIVE) Urine RBC 2-4 /HPF (0 - 2) Urine WBC Tntc /HPF (0 - 2) Urine Squamous Epithelial Cells Few /LPF (NONE/OCC) Urine Bacteria Many /HPF (NONE) IMPRESSION small bowel obstruction Hyponatremia abdominal pain colon ca possible UTI PLAN NPO IVF pain control GI and GS impression, plan, and exam edited and reviewed in detail care discussed with RN Subjective ROS Limited/Unobtainable: No Allergies: Coded Allergies: IODINE (Verified Allergy, Unknown, 05/18/19) Objective Last 24 Hour Vital Signs Date Time Temp Pulse Resp B/P (MAP) Pulse Ox O2 Delivery O2 Flow Rate FiO2 05/20/19 12:00 98.3 82 18 133/74 (93) 98 05/20/19 09:00 Room Air 05/20/19 08:00 98.1 80 18 130/70 (90) 97 05/20/19 04:02 97.9 77 18 131/74 (93) 05/20/19 00:00 99.0 90 18 138/73 (94) 05/19/19 21:00 Room Air 05/19/19 20:00 99.2 92 18 116/68 (84) 05/19/19 16:00 97.1 82 18 118/79 (92) 97 05/19/19 14:58 98.6 Intake and Output 05/19/19 05/20/19 19:00 07:00 Intake Total 410 ml Balance 410 ml Intake IV Total 410 ml # Voids 1 Microbiology Date/Time Source Procedure Growth Status 05/19/19 01:10 Urine,Clean Catch Urine Culture - Preliminary Gram Negative Bacillus 1 Resulted Laboratory Tests 05/19/19 18:00: Sodium Level 125L, Potassium Level 4.1, Chloride Level 91L, Carbon Dioxide Level 25, Anion Gap 10, Blood Urea Nitrogen 17, Creatinine 1.1, Estimat Glomerular Filtration Rate , Glucose Level 98, Calcium Level 8.6 05/20/19 05:19: Sodium Level 124L, Potassium Level 3.6, Chloride Level 89L, Carbon Dioxide Level 25, Anion Gap 10, Blood Urea Nitrogen 17, Creatinine 1.1, Estimat Glomerular Filtration Rate , Glucose Level 86, Calcium Level 8.6, White Blood Count 5.4, Red Blood Count 3.64L, Hemoglobin 13.4, Hematocrit 38.3, Mean Corpuscular Volume 105H, Mean Corpuscular Hemoglobin 36.9H, Mean Corpuscular Hemoglobin Concent 35.1, Red Cell Distribution Width 12.9, Platelet Count 242, Mean Platelet Volume 5.4L, Neutrophils (%) (Auto) 81.0H, Lymphocytes (%) (Auto) 10.6L, Monocytes (%) (Auto) 7.0, Eosinophils (%) (Auto) 0.3, Basophils (%) (Auto ) 1.1, Osmolality 263L, Uric Acid 4.8, Thyroid Stimulating Hormone (TSH) 2.043 Current Medications Medications (Trade) Dose Ordered Sig/Willian Route PRN Reason Start Time Stop Time Status Last Admin Dose Admin Cefepime HCl 1 gm/ Dextrose 55 ml @ 110 mls/hr Q24H IVPB 05/19/19 18:00 05/26/19 17:59 05/19/19 20:53 Morphine Sulfate (Morphine Sulfate) 2 mg Q3H PRN IVP For Pain 05/19/19 05:15 05/26/19 05:14 05/19/19 14:28 Ondansetron HCl (Zofran) 4 mg Q6H PRN IVP Nausea & Vomiting 05/19/19 05:15 06/18/19 05:14 Pantoprazole (Protonix) 40 mg EVERY 12 HOURS ORAL 05/19/19 09:00 06/18/19 08:59 05/20/19 09:19 Sodium Chloride 1,000 ml @ 100 mls/hr Q10H IV 05/19/19 06:00 06/18/19 05:59 05/19/19 06:23 Jaswinder Castillo MD May 20, 2019 14:54
[2019-05-20 16:00] VITALS: BP 148/78
--- NOTE | 2019-05-20 18:01 | Diagnostic Imaging Report ---
EXAM: XR Abdomen, 2 Views CLINICAL HISTORY: ABD DIST TECHNIQUE: Frontal view of the abdomen/pelvis with upright view of the abdomen. COMPARISON: Abdomen x-ray of the previous day timed stamped at 1:30 hours FINDINGS: Intraperitoneal space: See below. Gastrointestinal tract: Unremarkable. No dilation. Bones/joints: Incidental surgical hardware fusion of the lumbar spine and bilateral total hip arthroplasties are demonstrated. Tubes, lines and devices: Enteric tube has since been placed. The tip passes below the diaphragms and projects near midline in the upper abdomen over the gastric antrum. There persists gaseous distention of bowel loops in the upper abdomen but less conspicuously than before. No free air. IMPRESSION: Interval placement of an enteric decompression tube with slight improvement in radiographic findings of bowel obstruction. No findings of bowel perforation.
[2019-05-20] MEDS: Cefepime HCl 1 GM in D5W 55 ML IVPB SCH (18:44)
--- NOTE | 2019-05-20 19:45 | NUR ---
NURSE NOTES: Received report from CHICHI Leos. Patient A&Ox4. On room air, no signs of distress or labored breathing. IV intact and patent. Denies pains. NG tube in right nare intact, patent, and on low intermittent suction. Be din lowest position with call light in reach. Will continue with plan of care.
--- NOTE | 2019-05-20 19:52 | NUR ---
HAND-OFF: Report given to CHICHI Conteh.
[2019-05-20 20:00] VITALS: BP 152/78
[2019-05-21] VITALS: BP 129/76
--- NOTE | 2019-05-21 00:58 | NUR ---
HAND-OFF: Report given to RANJITH Figueroa.
--- NOTE | 2019-05-21 00:58 | NUR ---
NURSE NOTES:[facility] . patient denies any pain at this time . no s/s of distress noted . Lac g#20 Patent and intact with NS Infusing well AT 100cc / hr . NGT Right nares low intermittent suction with the output 250cc output brownih color. patent and intact. satey/ fall prevention . call light within reach . bed in low position at all times . bed alarm on . will continue to monitor. Addendum: 05/21/19 at 0401 by LUIS MARSH LVN NURSE NOTES:Patient transfer from 410 -1 to 312 bed 1 will continue to monitor.
[2019-05-21] MEDS: Pantoprazole Inj IVP SCH ×3 (01:45→21:01)
[2019-05-21 04:00] VITALS: BP 140/74
--- NOTE | 2019-05-21 06:28 | General Progress Note ---
Assessment/Plan Assessment/Plan: Assessment - SBO/PSBO - KUB yesterday slightly worse Recommendations - NPO - IVF - NGT for decomp - check KUB - surg input appreciated - follow labs Subjective ROS Limited/Unobtainable: Yes Allergies: Coded Allergies: IODINE (Verified Allergy, Unknown, 05/18/19) Objective Last 24 Hour Vital Signs Date Time Temp Pulse Resp B/P (MAP) Pulse Ox O2 Delivery O2 Flow Rate FiO2 05/21/19 04:00 97.2 77 18 140/74 (96) 98 77 05/21/19 00:00 98.9 90 18 129/76 (93) 94 05/20/19 21:00 Room Air 05/20/19 20:00 97.7 88 19 152/78 (102) 95 05/20/19 16:00 98.1 78 18 148/78 (101) 96 05/20/19 12:00 98.3 82 18 133/74 (93) 98 05/20/19 09:00 Room Air 05/20/19 08:00 98.1 80 18 130/70 (90) 97 Intake and Output 05/20/19 05/21/19 19:00 07:00 Intake Total 600 ml Balance 600 ml Intake IV Total 600 ml # Voids 4 Height (Feet): 5 Height (Inches): 7.00 Weight (Pounds): 121 General Appearance: no apparent distress EENT: normal ENT inspection Neck: supple Cardiovascular: normal rate Respiratory/Chest: decreased breath sounds Abdomen: hypoactive bowel sounds, distended Extremities: non-tender Javier Kelley MD May 21, 2019 06:28
--- NOTE | 2019-05-21 06:43 | NUR ---
NURSE NOTES: Called no answer. left message to family members Phillip([phone]) to notify patient locatIon 312 bed 1.Will continue to monitor.
--- NOTE | 2019-05-21 07:18 | NUR ---
HAND-OFF: Report given to Halina Blackburn patient in stable condition.
--- NOTE | 2019-05-21 07:33 | NUR ---
NURSE NOTES: Patient is in bed awake and able to verbalize needs. Stable. Denies pain or SOB. Patient's ngt in place as ordered. IV fluids running as ordered, IV site is patent and asymptomatic. Patient is in bed in locked and lowest position with bed alarm on, call light within reach. Patient encouraged to use call light for assistance, verbalized understanding. All safety measures provided. Will continue to monitor.
[2019-05-21 08:00] VITALS: BP 157/67
--- NOTE | 2019-05-21 08:36 | Nephrology Progress Note ---
Assessment/Plan Assessment/Plan: A/P 1) YANELI- resolved, prerenal in nature. Cr 1.1 - AM labs pending 2) Hyponatremia- Na 124. Continue IVFs. AM labs pending - poss SIADH from malignancy - Low Serum OSM and UA. Awaiting Urine OSM - possible 1 dose Samsca if Na worsens if available - NPO for now, NG in place 3) SBO- per GI mgmt Subjective Date patient seen: May 21, 2019 Time patient seen: 08:34 ROS Limited/Unobtainable: No Allergies: Coded Allergies: IODINE (Verified Allergy, Unknown, 05/18/19) Subjective Patient with NG in place Objective Last 24 Hour Vital Signs Date Time Temp Pulse Resp B/P (MAP) Pulse Ox O2 Delivery O2 Flow Rate FiO2 05/21/19 04:00 97.2 77 18 140/74 (96) 98 77 05/21/19 00:00 98.9 90 18 129/76 (93) 94 05/20/19 21:00 Room Air 05/20/19 20:00 97.7 88 19 152/78 (102) 95 05/20/19 16:00 98.1 78 18 148/78 (101) 96 05/20/19 12:00 98.3 82 18 133/74 (93) 98 05/20/19 09:00 Room Air Intake and Output 05/20/19 05/21/19 19:00 07:00 Intake Total 900 ml Output Total 600 ml Balance 300 ml Intake IV Total 900 ml Output Urine Total 350 ml Other 250 ml # Voids 4 5 Laboratory Tests 05/21/19 05:57: Urine Osmolality [Pending] Height (Feet): 5 Height (Inches): 7.00 Weight (Pounds): 121 General Appearance: no apparent distress, alert EENT: normal ENT inspection Neck: normal alignment, supple Cardiovascular: normal rate, regular rhythm Respiratory/Chest: lungs clear, normal breath sounds Abdomen: non tender, soft Edema: no edema noted Arm (L), no edema noted Arm (R), no edema noted Leg (L), no edema noted Leg (R), no edema noted Pedal (L), no edema noted Pedal (R), no edema noted Generalized Redd Hanson MD May 21, 2019 08:36
[2019-05-21 09:01] LABS: BASOPHILS % (AUTO) 0.7 % (0.0-2.0); EOSINOPHILS % (AUTO) 0.4 % (0.0-3.0); HEMATOCRIT 41.1 % (37.0-47.0); HEMOGLOBIN 14.2 G/DL (12.0-16.0); LYMPHOCYTES % (AUTO) 10.3 % (20.0-45.0); MEAN CORPUSCULAR VOLUME 108 FL (80-99); MONOCYTES % (AUTO) 8.2 % (1.0-10.0); NEUTROPHILS % (AUTO) 80.4 % (45.0-75.0); PLATELET COUNT 227 K/UL (150-450); RED BLOOD COUNT 3.81 M/UL (4.20-5.40); RED CELL DISTRIBUTION WIDTH 12.2 % (11.6-14.8); WHITE BLOOD COUNT 6.5 K/UL (4.8-10.8)
[2019-05-21 09:10] LABS: INR 1.1 (0.9-1.1)
--- NOTE | 2019-05-21 09:12 | General Progress Note ---
Assessment/Plan Assessment/Plan: IMPRESSION small bowel obstruction abdominal pain colon ca UTI hyponatremia PLAN NPO pain control GI and GS renal noted IV hydration impression, plan, and exam edited and reviewed in detail care discussed with RN Subjective Allergies: Coded Allergies: IODINE (Verified Allergy, Unknown, 05/18/19) Subjective care noted and reviewed all appreciated NGT in place Objective Last 24 Hour Vital Signs Date Time Temp Pulse Resp B/P (MAP) Pulse Ox O2 Delivery O2 Flow Rate FiO2 05/21/19 04:00 97.2 77 18 140/74 (96) 98 77 05/21/19 00:00 98.9 90 18 129/76 (93) 94 05/20/19 21:00 Room Air 05/20/19 20:00 97.7 88 19 152/78 (102) 95 05/20/19 16:00 98.1 78 18 148/78 (101) 96 05/20/19 12:00 98.3 82 18 133/74 (93) 98 Intake and Output 05/20/19 05/21/19 18:59 06:59 Intake Total 900 ml Output Total 600 ml Balance 300 ml Intake IV Total 900 ml Output Urine Total 350 ml Other 250 ml # Voids 4 5 Laboratory Tests 05/21/19 05:57: Urine Osmolality [Pending] 05/21/19 08:49: White Blood Count 6.5, Red Blood Count 3.81L, Hemoglobin 14.2, Hematocrit 41.1, Mean Corpuscular Volume 108H, Mean Corpuscular Hemoglobin 37.2H, Mean Corpuscular Hemoglobin Concent 34.5, Red Cell Distribution Width 12.2, Platelet Count 227, Mean Platelet Volume 5.8L, Neutrophils (%) (Auto) 80.4H, Lymphocytes (%) (Auto) 10.3L, Monocytes (%) (Auto) 8.2, Eosinophils (%) (Auto) 0.4, Basophils (%) (Auto) 0.7, Prothrombin Time [Pending], Prothromb Time International Ratio [Pending], Activated Partial Thromboplast Time [Pending], Sodium Level [Pending], Potassium Level [Pending], Chloride Level [Pending], Carbon Dioxide Level [Pending], Blood Urea Nitrogen [Pending], Creatinine [ Pending], Estimat Glomerular Filtration Rate [Pending], Glucose Level [Pending] , Calcium Level [Pending], Total Bilirubin [Pending], Aspartate Amino Transf ( AST/SGOT) [Pending], Alanine Aminotransferase (ALT/SGPT) [Pending], Alkaline Phosphatase [Pending], Total Protein [Pending], Albumin [Pending], Globulin [ Pending] Height (Feet): 5 Height (Inches): 7.00 Weight (Pounds): 121 Objective WDWN NAD clear breath sounds bilaterally without rhonchi or wheeze [id number] without MRG nontender no CCE nonfocal Gagandeep Li MD May 21, 2019 09:12
[2019-05-21 09:27] LABS: ALANINE AMINOTRANSFERASE 11 U/L (12-78); ALBUMIN 3.5 G/DL (3.4-5.0); ALBUMIN/GLOBULIN RATIO 1.2 (1.0-2.7); ALKALINE PHOSPHATASE 58 U/L (46-116); ANION GAP 11 mmol/L (5-15); ASPARTATE AMINO TRANSFERASE 33 U/L (15-37); BILIRUBIN,TOTAL 1.3 MG/DL (0.2-1.0); BLOOD UREA NITROGEN 18 mg/dL (7-18); CARBON DIOXIDE 24 MMOL/L (21-32); CHLORIDE 91 MMOL/L (98-107); CREATININE 0.9 MG/DL (0.55-1.30); SODIUM 126 MMOL/L (136-145)
[2019-05-21 09:28] LABS: BILIRUBIN,DIRECT 0.2 MG/DL (0.0-0.3)
[2019-05-21] MEDS: cefTRIAXone 1 GM in D5W 55 ML IVPB SCH (10:20)
[2019-05-21 12:00] VITALS: BP 143/73
--- NOTE | 2019-05-21 12:12 | Diagnostic Imaging Report ---
EXAM: XR Abdomen, 1 View CLINICAL HISTORY: F/U TECHNIQUE: Frontal view of the abdomen/pelvis. COMPARISON: Abdominal x-ray dated 05/20/19. FINDINGS: Intraperitoneal space: No evidence of free air below the diaphragm. Gastrointestinal tract: Persistent mild gaseous distention of small bowel loops in the central abdomen, not significantly changed. Bones/joints: Unchanged appearance of the cervical spine fusion hardware and bilateral hip replacements. Soft tissues: Radiodense clips overlie the central abdomen and right lateral abdomen. Tubes, lines and devices: NG tube tip in the region of the distal stomach body. IMPRESSION: Persistent mild gaseous distention of small bowel loops in the central abdomen, not significantly changed.
--- NOTE | 2019-05-21 13:00 | NUR ---
NURSE NOTES: Patient is agitated, attempting to get out of bed. Patient is unsteady. Assisted into bed by RN without incident. Patient pulled out ngt and IV and stated she wants to go home. Patient refuses reinsertion of ngt and IV. Patient is aware of the risks of not having ngt and IV, patient does not agree and insists on going home. RN stayed with patient until she was more calm and in bed. All safety measures provided. Will reinsert IV and ngt as ordered when appropriate. Patient is in bed in locked and lowest position with call light within reach and bed alarm on. Will continue to monitor.
[2019-05-21] MEDS ORDERED: LORazepam Inj 2mg/ml 1ml IV PRN (13:30)
--- NOTE | 2019-05-21 13:30 | NUR ---
NURSE NOTES: Reinserted ngt into right nares, tolerated well. Reinserted IV, 24g in right forearm. Patient is in bed in locked and lowest position with call light within reach. WIll continue to monitor.
--- NOTE | 2019-05-21 15:50 | NUR ---
NURSE NOTES: Report received from Halina CADET, rounds made. Patient resting in semi-fowlers position in bed. Patient alert, oriented x2, calm, son at bedside. No SOB on RA, no distress, denies pain or NV. NGT to right nare in place, low intermittent suction, with dark brown output noted. RFA heplock, intact. Applied bilateral SCDs. Patient incontinent of urine, will provide skin care and bed linen change. Reinforced call light for safety. Bed in lowest position, will continue to monitor.
[2019-05-21 15:56] VITALS: BP 155/82
[2019-05-21] MEDS ORDERED: Tubing IV Secondary IV ONE (16:05)
--- NOTE | 2019-05-21 16:07 | Surgery Progress Note ---
Surgery Progress Note Subjective Additional Comments Patient seen and examined at bedside today. States she feels mildly better today has had NG tube replaced twice at this point. No nausea vomiting. No flatus or bowel movement yet. KUB noted and stable. Labs noted. Abdominal exam somewhat improved Objective Last 24 Hour Vital Signs Date Time Temp Pulse Resp B/P (MAP) Pulse Ox O2 Delivery O2 Flow Rate FiO2 05/21/19 15:56 97.6 86 18 155/82 (106) 95 05/21/19 12:00 97.2 77 20 143/73 (96) 97 05/21/19 09:00 Room Air 05/21/19 08:00 97.5 76 20 157/67 (97) 95 05/21/19 04:00 97.2 77 18 140/74 (96) 98 77 05/21/19 00:00 98.9 90 18 129/76 (93) 94 05/20/19 21:00 Room Air 05/20/19 20:00 97.7 88 19 152/78 (102) 95 I&O Intake and Output 05/20/19 05/21/19 18:59 06:59 Intake Total 900 ml Output Total 600 ml Balance 300 ml Intake IV Total 900 ml Output Urine Total 350 ml Other 250 ml # Voids 4 5 Cardiovascular: RSR Respiratory: clear Abdomen: soft, distended, non-tender - Much less tender today, decreased bowel sounds Extremities: no edema, no tenderness, no cyanosis Laboratory Tests Test 05/21/19 05:57 05/21/19 08:49 Urine Osmolality 512 mOsm/kg (429-449) H White Blood Count 6.5 K/UL (4.8-10.8) Red Blood Count 3.81 M/UL (4.20-5.40) L Hemoglobin 14.2 G/DL (12.0-16.0) Hematocrit 41.1 % (37.0-47.0) Mean Corpuscular Volume 108 FL (80-99) H Mean Corpuscular Hemoglobin 37.2 PG (27.0-31.0) H Mean Corpuscular Hemoglobin Concent 34.5 G/DL (32.0-36.0) Red Cell Distribution Width 12.2 % (11.6-14.8) Platelet Count 227 K/UL (150-450) Mean Platelet Volume 5.8 FL (6.5-10.1) L Neutrophils (%) (Auto) 80.4 % (45.0-75.0) H Lymphocytes (%) (Auto) 10.3 % (20.0-45.0) L Monocytes (%) (Auto) 8.2 % (1.0-10.0) Eosinophils (%) (Auto) 0.4 % (0.0-3.0) Basophils (%) (Auto) 0.7 % (0.0-2.0) Prothrombin Time 11.2 SEC (9.30-11.50) Prothromb Time International Ratio 1.1 (0.9-1.1) Activated Partial Thromboplast Time 29 SEC (23-33) Sodium Level 126 MMOL/L (136-145) L Potassium Level 4.0 MMOL/L (3.5-5.1) Chloride Level 91 MMOL/L (98-107) L Carbon Dioxide Level 24 MMOL/L (21-32) Anion Gap 11 mmol/L (5-15) Blood Urea Nitrogen 18 mg/dL (7-18) Creatinine 0.9 MG/DL (0.55-1.30) Estimat Glomerular Filtration Rate mL/min (>60) Glucose Level 70 MG/DL (74-106) L Calcium Level 9.0 MG/DL (8.5-10.1) Total Bilirubin 1.3 MG/DL (0.2-1.0) H Direct Bilirubin 0.2 MG/DL (0.0-0.3) Aspartate Amino Transf (AST/SGOT) 33 U/L (15-37) Alanine Aminotransferase (ALT/SGPT) 11 U/L (12-78) L Alkaline Phosphatase 58 U/L (46-116) Total Protein 6.5 G/DL (6.4-8.2) Albumin 3.5 G/DL (3.4-5.0) Globulin 3.0 g/dL Albumin/Globulin Ratio 1.2 (1.0-2.7) Plan Problems: (1) Hyponatremia (2) Renal insufficiency (3) UTI (urinary tract infection) (4) Small bowel obstruction Assessment & Plan: 78 year old female with abdominal pain, nausea, emesis, possible sbo. afebrile, HD stable, labs noted CT as below. patient states prior abdominal surgery from anterior exposure of spine surgery and possible bowel resection for cancer but unsure of details. Still no flatus or bowel movement. NG tube in place with no significant output. Abdominal exam slightly improved today with less tenderness. KUB unchanged NG tube to suction NPO IV fluids AM KUB will follow with serial exams if does not improved in next 24-48hrs will need surgery. same if worsening thank you (5) Abdominal pain Javier Urbina May 21, 2019 16:07
--- NOTE | 2019-05-21 16:10 | NUR ---
HAND-OFF: Report given to Beatrice CADET. Patient is stable.
--- NOTE | 2019-05-21 16:29 | Diagnostic Imaging Report ---
EXAM: XR Abdomen, 1 View CLINICAL HISTORY: NGT TECHNIQUE: Frontal view of the abdomen/pelvis. COMPARISON: Abdominal x-ray performed earlier the same date. FINDINGS: Intraperitoneal space: No free air. Gastrointestinal tract: Mild diffuse gaseous distention of colonic and small bowel loops, not significant change. Radiodense clips overlie the midepigastric region and the right lateral abdomen. Bones/joints: Lumbar spine fusion hardware and bilateral hip replacement hardware again noted. Tubes, lines and devices: The nasogastric tube tip appears shallow, with the proximal port at or above the GE junction and the tip just distal to the GE junction. Recommend advancing 10 cm. IMPRESSION: 1. The nasogastric tube tip appears shallow, with the proximal port at or above the GE junction and the tip just distal to the GE junction. Recommend advancing 10 cm. 2. Mild diffuse gaseous distention of colonic and small bowel loops, not significant change. <MYCVCSECTION> Critical Value Communications 05/21/19 16:42 Verify Receipt with Nurse Verified receipt with CHICHI Willett on 05/21 16:42 (-07:00)
--- NOTE | 2019-05-21 18:38 | NUR ---
CASE MANAGEMENT: REVIEW SI: SBO . UTI T 97.2 HR 77 RR 20 BP 157/67 SAT 95% ROOM AIR NA 126 GLUCOSE 70 UA: OSMOLALITY 512 IS: CEFTRIAXONE IV Q24HR PROTONIX IV Q12HR MORPHINE 2MG IV Q3HR PRN NPO MED/SURG STATUS DCP: PATIENT IS FROM HOME
--- NOTE | 2019-05-21 19:25 | NUR ---
NURSE NOTES: Received shift report from CHICHI Barron.
--- NOTE | 2019-05-21 19:30 | NUR ---
HAND-OFF: Report given to Evelin KASPER. NGT output 75 ml.
--- NOTE | 2019-05-21 19:30 | NUR ---
NURSE NOTES: Seen pt in initial rounding, AAOX2. resting in bed comfortably, resp even. no cv c/o noted. call light w/in reach. instructed to call as needed for assistance.
[2019-05-21 20:00] VITALS: BP 130/75
[2019-05-22] VITALS: BP 126/68
--- NOTE | 2019-05-22 00:30 | NUR ---
NURSE NOTES: Changed pads and gown for incontinence. reinforced tape to NGT securement to nasal bridge. NGT to LIS suction, VSS.
--- NOTE | 2019-05-22 02:45 | Consultation ---
DATE OF CONSULTATION: 05/21/2019 INFECTIOUS DISEASE CONSULTATION This consult is for coverage of Dr. Miguel. CONSULTING PHYSICIAN: David Castellanos M.D. PRIMARY ATTENDING PHYSICIAN: Gagandeep Li M.D. REASON FOR CONSULT: UTI, small bowel obstruction. HISTORY OF PRESENT ILLNESS: This is a 78-year-old female, admitted from home complaining of nausea, vomiting, abdominal pain 10/10, started two days before admission. The patient has history of colon cancer and also had previous other abdominal surgeries. Urine culture growing Klebsiella. Since admission, the patient is NPO, had NG tube connected to suction that came out today. PAST MEDICAL HISTORY: Significant for spinal fusion, bilateral hip surgeries, colon cancer, hypertension. ALLERGIES: Allergic to iodine. MEDICATIONS: Getting potassium chloride, ceftriaxone, morphine, sodium chloride. SOCIAL HISTORY: Smoking one half pack of cigarettes daily. . . Drinks occasionally. Denies drug abuse. REVIEW OF SYSTEMS: Denies any fever or chills. No coughing. Today feels hungry. No abdominal pain. No bowel movements since admission. No problem passing urine. PHYSICAL EXAMINATION: VITAL SIGNS: Temperature 97.2, pulse 77, blood pressure 143/73. GENERAL APPEARANCE: No acute distress. Seems to be thin. HEAD AND NECK: Slightly whitish tongue. HEART: Normal rate. LUNGS: Clear. ABDOMEN: Scar of midline, surgery, nontender. EXTREMITIES: Has no edema. LABORATORY AND DIAGNOSTIC DATA: Sodium 126, potassium 4, chloride 91, bicarb 24, BUN 18, creatinine 0.9, glucose 17. Albumin is 3.5. UA showed WBC too numerous to count, leukocyte esterase positive. WBC 6.5, hemoglobin 14.2, hematocrit 41.2, and platelets is 227. Urine culture grew Klebsiella oxytoca. Abdominal x-ray shows mild gaseous distention small bowel loop in the central abdomen, no significant change. CT scan of the abdomen and pelvis showed bibasilar atelectasis, small bowel obstruction, pre-hepatic ascites, extensive postsurgical changes in lumbar spine with burst fracture of L1, status post vertebroplasty seems to be old. IMPRESSION: 1. Klebsiella urinary tract infection, 2. small bowel obstruction. 3. Hyponatremia. 4. History of colon cancer. 5. Acute renal failure that is resolved. RECOMMENDATIONS: We will continue ceftriaxone. Further recommendation for small bowel obstruction by surgeon. At the end of my exam, I thank, Dr. Li, for involving me in the care of this patient. David Castellanos M.D. DR: SHERWIN JOB#: [id number] CC: BETSY
[2019-05-22 04:00] VITALS: BP 137/73
--- NOTE | 2019-05-22 07:02 | NUR ---
HAND-OFF: Report given to CHICHI Macdonald.
--- NOTE | 2019-05-22 07:13 | General Progress Note ---
Assessment/Plan Assessment/Plan: IMPRESSION small bowel obstruction abdominal pain colon ca UTI hyponatremia PLAN NPO and advance diet per GI pain control GI and GS renal noted IV hydration and monitor labs impression, plan, and exam edited and reviewed in detail care discussed with RN Subjective Allergies: Coded Allergies: IODINE (Verified Allergy, Unknown, 05/18/19) Subjective care noted and reviewed all appreciated and imaging noted NGT in place Objective Last 24 Hour Vital Signs Date Time Temp Pulse Resp B/P (MAP) Pulse Ox O2 Delivery O2 Flow Rate FiO2 05/22/19 04:00 97.3 76 17 137/73 (94) 97 05/22/19 00:00 98.2 86 16 126/68 (87) 93 05/21/19 21:00 Room Air 05/21/19 20:00 98.6 81 17 130/75 (93) 100 05/21/19 15:56 97.6 86 18 155/82 (106) 95 05/21/19 12:00 97.2 77 20 143/73 (96) 97 05/21/19 09:00 Room Air 05/21/19 08:00 97.5 76 20 157/67 (97) 95 Intake and Output 05/21/19 05/22/19 19:00 07:00 Output Total 75 ml 200 ml Balance -75 ml -200 ml Gastric Drainage Total 200 ml Other 75 ml # Voids 2 2 Laboratory Tests 05/21/19 08:49: White Blood Count 6.5, Red Blood Count 3.81L, Hemoglobin 14.2, Hematocrit 41.1, Mean Corpuscular Volume 108H, Mean Corpuscular Hemoglobin 37.2H, Mean Corpuscular Hemoglobin Concent 34.5, Red Cell Distribution Width 12.2, Platelet Count 227, Mean Platelet Volume 5.8L, Neutrophils (%) (Auto) 80.4H, Lymphocytes (%) (Auto) 10.3L, Monocytes (%) (Auto) 8.2, Eosinophils (%) (Auto) 0.4, Basophils (%) (Auto) 0.7, Prothrombin Time 11.2, Prothromb Time International Ratio 1.1, Activated Partial Thromboplast Time 29, Sodium Level 126L, Potassium Level 4.0, Chloride Level 91L, Carbon Dioxide Level 24, Anion Gap 11, Blood Urea Nitrogen 18, Creatinine 0.9, Estimat Glomerular Filtration Rate , Glucose Level 70L, Calcium Level 9.0, Total Bilirubin 1.3H, Direct Bilirubin 0.2, Aspartate Amino Transf (AST/SGOT) 33, Alanine Aminotransferase (ALT/SGPT) 11L, Alkaline Phosphatase 58, Total Protein 6.5, Albumin 3.5, Globulin 3.0, Albumin/ Globulin Ratio 1.2 Height (Feet): 5 Height (Inches): 7.00 Weight (Pounds): 121 Objective WDWN NAD clear breath sounds bilaterally without rhonchi or wheeze [id number] without MRG nontender; reduced BS no CCE nonfocal Gagandeep Li MD May 22, 2019 07:13
--- NOTE | 2019-05-22 07:26 | NUR ---
NURSE NOTES:BEDSIDE ROUNDS WITH OUTGOING RN(LIZETTE),PT.AWAKE,A/OX2,ROOM AIR,NGT TO LOW INTERMITTENT SUCTION WITH BROWNISH OUTPUT,NOT PASSING GAS YET,NO C/O PAIN,REMAINS NPO,IV SITE INTACT.PLAN OF CARE DISCUSSED AND UNDERSTOOD.
--- NOTE | 2019-05-22 07:36 | Nephrology Progress Note ---
Assessment/Plan Assessment/Plan: A/P 1) YANELI- resolved, prerenal in nature. Cr 1.1 - AM labs pending 2) Hyponatremia- Na up to 126. Continue IVFs. DC IVFs. - labs c/w SIADH. Urine OSM 512 and low UA and serum OSM - possible 1 dose Samsca if Na worsens if available - NPO for now, NG in place 3) SBO- per GI mgmt Subjective Date patient seen: May 22, 2019 Time patient seen: 07:34 ROS Limited/Unobtainable: No Allergies: Coded Allergies: IODINE (Verified Allergy, Unknown, 05/18/19) Subjective Patient with NG in place. Still NPO Objective Last 24 Hour Vital Signs Date Time Temp Pulse Resp B/P (MAP) Pulse Ox O2 Delivery O2 Flow Rate FiO2 05/22/19 04:00 97.3 76 17 137/73 (94) 97 05/22/19 00:00 98.2 86 16 126/68 (87) 93 05/21/19 21:00 Room Air 05/21/19 20:00 98.6 81 17 130/75 (93) 100 05/21/19 15:56 97.6 86 18 155/82 (106) 95 05/21/19 12:00 97.2 77 20 143/73 (96) 97 05/21/19 09:00 Room Air 05/21/19 08:00 97.5 76 20 157/67 (97) 95 Intake and Output 05/21/19 05/22/19 19:00 07:00 Output Total 75 ml 200 ml Balance -75 ml -200 ml Gastric Drainage Total 200 ml Other 75 ml # Voids 2 2 Laboratory Tests 05/21/19 08:49: White Blood Count 6.5, Red Blood Count 3.81L, Hemoglobin 14.2, Hematocrit 41.1, Mean Corpuscular Volume 108H, Mean Corpuscular Hemoglobin 37.2H, Mean Corpuscular Hemoglobin Concent 34.5, Red Cell Distribution Width 12.2, Platelet Count 227, Mean Platelet Volume 5.8L, Neutrophils (%) (Auto) 80.4H, Lymphocytes (%) (Auto) 10.3L, Monocytes (%) (Auto) 8.2, Eosinophils (%) (Auto) 0.4, Basophils (%) (Auto) 0.7, Prothrombin Time 11.2, Prothromb Time International Ratio 1.1, Activated Partial Thromboplast Time 29, Sodium Level 126L, Potassium Level 4.0, Chloride Level 91L, Carbon Dioxide Level 24, Anion Gap 11, Blood Urea Nitrogen 18, Creatinine 0.9, Estimat Glomerular Filtration Rate , Glucose Level 70L, Calcium Level 9.0, Total Bilirubin 1.3H, Direct Bilirubin 0.2, Aspartate Amino Transf (AST/SGOT) 33, Alanine Aminotransferase (ALT/SGPT) 11L, Alkaline Phosphatase 58, Total Protein 6.5, Albumin 3.5, Globulin 3.0, Albumin/ Globulin Ratio 1.2 Height (Feet): 5 Height (Inches): 7.00 Weight (Pounds): 121 General Appearance: no apparent distress EENT: normal ENT inspection Neck: normal alignment, supple Cardiovascular: normal rate, regular rhythm Respiratory/Chest: lungs clear, normal breath sounds Abdomen: soft Edema: no edema noted Arm (L), no edema noted Arm (R), no edema noted Leg (L), no edema noted Leg (R), no edema noted Pedal (L), no edema noted Pedal (R), no edema noted Generalized Redd Hanson MD May 22, 2019 07:36
[2019-05-22] MEDS: Pantoprazole Inj IVP SCH ×2 (07:59→21:03)
[2019-05-22 08:08] LABS: BASOPHILS % (AUTO) 0.4 % (0.0-2.0); EOSINOPHILS % (AUTO) 0.5 % (0.0-3.0); HEMATOCRIT 36.1 % (37.0-47.0); HEMOGLOBIN 12.5 G/DL (12.0-16.0); LYMPHOCYTES % (AUTO) 11.9 % (20.0-45.0); MEAN CORPUSCULAR VOLUME 106 FL (80-99); NEUTROPHILS % (AUTO) 78.2 % (45.0-75.0); PLATELET COUNT 244 K/UL (150-450); RED BLOOD COUNT 3.41 M/UL (4.20-5.40); WHITE BLOOD COUNT 5.8 K/UL (4.8-10.8)
--- NOTE | 2019-05-22 08:29 | Diagnostic Imaging Report ---
EXAM: XR Abdomen, 2 Views CLINICAL HISTORY: F/U TECHNIQUE: Frontal view of the abdomen/pelvis with upright view of the abdomen. COMPARISON: No relevant prior studies available. FINDINGS: Intraperitoneal space: No evidence of free air below the diaphragm. Gastrointestinal tract: Mild gaseous distention of small bowel and colonic loops, not significantly changed. Organs: The renal shadows are obscured by bowel gas. Bones/joints: Unchanged appearance of lumbar spine fixation hardware and bilateral hip replacements. Tubes, lines and devices: NG tube tip in the region of the gastric body. IMPRESSION: Mild gaseous distention of small bowel and colonic loops, not significantly changed.
[2019-05-22 08:35] VITALS: BP 139/69
[2019-05-22 09:05] LABS: ANION GAP 19 mmol/L (5-15); BLOOD UREA NITROGEN 17 mg/dL (7-18); CALCIUM 8.8 MG/DL (8.5-10.1); CARBON DIOXIDE 19 MMOL/L (21-32); CHLORIDE 94 MMOL/L (98-107); SODIUM 131 MMOL/L (136-145)
[2019-05-22 09:06] LABS: POTASSIUM 2.7 MMOL/L (3.5-5.1)
--- NOTE | 2019-05-22 10:32 | General Progress Note ---
Assessment/Plan Assessment/Plan: Assessment - SBO/PSBO - KUB yesterday slightly worse Recommendations - NPO - IVF - NGT for decomp - fu KUB - surg input appreciated - follow labs Subjective ROS Limited/Unobtainable: Yes Allergies: Coded Allergies: IODINE (Verified Allergy, Unknown, 05/18/19) Objective Last 24 Hour Vital Signs Date Time Temp Pulse Resp B/P (MAP) Pulse Ox O2 Delivery O2 Flow Rate FiO2 05/22/19 08:35 97.4 82 18 139/69 (92) 96 05/22/19 07:26 Room Air 05/22/19 04:00 97.3 76 17 137/73 (94) 97 05/22/19 00:00 98.2 86 16 126/68 (87) 93 05/21/19 21:00 Room Air 05/21/19 20:00 98.6 81 17 130/75 (93) 100 05/21/19 15:56 97.6 86 18 155/82 (106) 95 05/21/19 12:00 97.2 77 20 143/73 (96) 97 Intake and Output 05/21/19 05/22/19 19:00 07:00 Output Total 75 ml 200 ml Balance -75 ml -200 ml Gastric Drainage Total 200 ml Other 75 ml # Voids 2 2 Laboratory Tests 05/22/19 05:52: White Blood Count 5.8, Red Blood Count 3.41L, Hemoglobin 12.5, Hematocrit 36.1L , Mean Corpuscular Volume 106H, Mean Corpuscular Hemoglobin 36.6H, Mean Corpuscular Hemoglobin Concent 34.6, Red Cell Distribution Width 12.0, Platelet Count 244, Mean Platelet Volume 5.3L, Neutrophils (%) (Auto) 78.2H, Lymphocytes (%) (Auto) 11.9L, Monocytes (%) (Auto) 9.0, Eosinophils (%) (Auto) 0.5, Basophils (%) (Auto) 0.4, Sodium Level 131L, Potassium Level 2.7*L, Chloride Level 94L, Carbon Dioxide Level 19L, Anion Gap 19H, Blood Urea Nitrogen 17, Creatinine 1.0, Estimat Glomerular Filtration Rate , Glucose Level 61L, Calcium Level 8.8 Height (Feet): 5 Height (Inches): 7.00 Weight (Pounds): 121 General Appearance: alert EENT: normal ENT inspection Neck: supple Cardiovascular: normal rate Respiratory/Chest: lungs clear Abdomen: soft, hypoactive bowel sounds Extremities: non-tender Javier Kelley MD May 22, 2019 10:32
[2019-05-22] MEDS: cefTRIAXone 1 GM in D5W 55 ML IVPB SCH (10:56)
[2019-05-22 11:47] VITALS: BP 143/74
--- NOTE | 2019-05-22 12:29 | NUR ---
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 SBO VS: BP 152/77, P 82, T 97.3, RR 19, SpO2 95 RBC 3.41, HCT 36.1, Na 131, K 2.7, ABD XRAY: Mild gaseous distention of small bowel and colonic loops. IS:CEFTRIAXONE 110mls IVPB PROTONIX 40mg IVP NS x1L IV POTASSIUM CHLORIDE 100ml IVP 3E MED/SURG STATUS
--- NOTE | 2019-05-22 14:14 | Surgery Progress Note ---
Surgery Progress Note Subjective Additional Comments no acute events. states she feels mildly better today no n/v/f/c labs okay exam stable KUB noted no flatus or BM Objective Last 24 Hour Vital Signs Date Time Temp Pulse Resp B/P (MAP) Pulse Ox O2 Delivery O2 Flow Rate FiO2 05/22/19 11:47 97.7 80 19 143/74 (97) 95 05/22/19 08:35 97.4 82 18 139/69 (92) 96 05/22/19 07:26 Room Air 05/22/19 04:00 97.3 76 17 137/73 (94) 97 05/22/19 00:00 98.2 86 16 126/68 (87) 93 05/21/19 21:00 Room Air 05/21/19 20:00 98.6 81 17 130/75 (93) 100 05/21/19 15:56 97.6 86 18 155/82 (106) 95 I&O Intake and Output 05/21/19 05/22/19 18:59 06:59 Output Total 75 ml 200 ml Balance -75 ml -200 ml Gastric Drainage Total 200 ml Other 75 ml # Voids 2 2 Drains: other Cardiovascular: RSR Respiratory: clear Abdomen: soft, distended, non-tender, decreased bowel sounds Extremities: no edema, no tenderness, no cyanosis Laboratory Tests Test 05/22/19 05:52 White Blood Count 5.8 K/UL (4.8-10.8) Red Blood Count 3.41 M/UL (4.20-5.40) L Hemoglobin 12.5 G/DL (12.0-16.0) Hematocrit 36.1 % (37.0-47.0) L Mean Corpuscular Volume 106 FL (80-99) H Mean Corpuscular Hemoglobin 36.6 PG (27.0-31.0) H Mean Corpuscular Hemoglobin Concent 34.6 G/DL (32.0-36.0) Red Cell Distribution Width 12.0 % (11.6-14.8) Platelet Count 244 K/UL (150-450) Mean Platelet Volume 5.3 FL (6.5-10.1) L Neutrophils (%) (Auto) 78.2 % (45.0-75.0) H Lymphocytes (%) (Auto) 11.9 % (20.0-45.0) L Monocytes (%) (Auto) 9.0 % (1.0-10.0) Eosinophils (%) (Auto) 0.5 % (0.0-3.0) Basophils (%) (Auto) 0.4 % (0.0-2.0) Sodium Level 131 MMOL/L (136-145) L Potassium Level 2.7 MMOL/L (3.5-5.1) *L Chloride Level 94 MMOL/L (98-107) L Carbon Dioxide Level 19 MMOL/L (21-32) L Anion Gap 19 mmol/L (5-15) H Blood Urea Nitrogen 17 mg/dL (7-18) Creatinine 1.0 MG/DL (0.55-1.30) Estimat Glomerular Filtration Rate mL/min (>60) Glucose Level 61 MG/DL (74-106) L Calcium Level 8.8 MG/DL (8.5-10.1) Plan Problems: (1) Hyponatremia (2) Renal insufficiency (3) UTI (urinary tract infection) (4) Small bowel obstruction Assessment & Plan: 78 year old female with abdominal pain, nausea, emesis, possible sbo. afebrile, HD stable, labs noted CT as below. patient states prior abdominal surgery from anterior exposure of spine surgery and possible bowel resection for cancer but unsure of details. Still no flatus or bowel movement. NG tube in place with no significant output. Abdominal exam slightly improved today with less tenderness. KUB unchanged NG tube to suction NPO IV fluids Upper GI contrast study tomorrow will follow with serial exams thank you (5) Abdominal pain Javier Urbina May 22, 2019 14:14
[2019-05-22 16:14] VITALS: BP 137/76
--- NOTE | 2019-05-22 17:13 | NUR ---
NURSE NOTES:NO SIGNIFICANT CHANGE TO NEURO STATUS,PLEASANTLY CONFUSED.NOT PASSING GAS YET,NGT WITH LESSER OUTPUT.NO C/O PAIN.
--- NOTE | 2019-05-22 19:35 | NUR ---
NURSE NOTES: Report taken from CHICHI Macdonald. Patient is awake and in bed. A&Ox2, she does not recall where she is and she does not remember any part of the date/day, does not remember how she arrived at the hospital, but very pleasant otherwise. No signs of distress on room air. No complaints of pain. NG tube on intermittent suction, draining red/brown fluid. IV site c/d/i and running NS at 50mls/hr, patient is NPO. Skin is intact. Bed in lowest position, call light within reach.
--- NOTE | 2019-05-22 19:38 | NUR ---
HAND-OFF: Report given to RUBÉN CADET.PATIENT STABLE.
[2019-05-22 20:00] VITALS: BP 152/77
[2019-05-23] VITALS (12 sets, daily range): BP systolic 147–176; BP diastolic 70–84
[2019-05-23 05:51] LABS: BASOPHILS % (AUTO) 0.6 % (0.0-2.0); EOSINOPHILS % (AUTO) 0.7 % (0.0-3.0); HEMATOCRIT 35.6 % (37.0-47.0); HEMOGLOBIN 12.4 G/DL (12.0-16.0); LYMPHOCYTES % (AUTO) 13.2 % (20.0-45.0); MEAN CORPUSCULAR VOLUME 106 FL (80-99); MONOCYTES % (AUTO) 11.6 % (1.0-10.0); NEUTROPHILS % (AUTO) 73.9 % (45.0-75.0); PLATELET COUNT 251 K/UL (150-450); RED BLOOD COUNT 3.38 M/UL (4.20-5.40); RED CELL DISTRIBUTION WIDTH 11.7 % (11.6-14.8); WHITE BLOOD COUNT 5.4 K/UL (4.8-10.8)
[2019-05-23 06:22] LABS: ALANINE AMINOTRANSFERASE < 6 U/L (12-78); ALBUMIN 2.8 G/DL (3.4-5.0); ALBUMIN/GLOBULIN RATIO 0.8 (1.0-2.7); ALKALINE PHOSPHATASE 52 U/L (46-116); ANION GAP 16 mmol/L (5-15); ASPARTATE AMINO TRANSFERASE 21 U/L (15-37); BILIRUBIN,TOTAL 1.1 MG/DL (0.2-1.0); BLOOD UREA NITROGEN 17 mg/dL (7-18); CALCIUM 8.8 MG/DL (8.5-10.1); CARBON DIOXIDE 19 MMOL/L (21-32); CHLORIDE 96 MMOL/L (98-107); POTASSIUM 3.1 MMOL/L (3.5-5.1); SODIUM 131 MMOL/L (136-145)
[2019-05-23 06:35] LABS: BILIRUBIN,DIRECT 0.2 MG/DL (0.0-0.3)
--- NOTE | 2019-05-23 07:38 | NUR ---
\HAND-OFF: Report given to CHICHI Hung. Patient is awake and VS stable.
--- NOTE | 2019-05-23 07:40 | NUR ---
NURSE NOTES: Patient lying in bed awake. No complain of pain or distress at this time. NG tube suction on going as ordered. IV dressing intact and dry. Bed lowest position. Call light within reach. Will continue to monitor.
--- NOTE | 2019-05-23 08:09 | General Progress Note ---
Assessment/Plan Assessment/Plan: IMPRESSION small bowel obstruction abdominal pain colon ca UTI hyponatremia PLAN NPO and advance diet per GI KUB noted pain control GI and GS renal noted IV hydration and monitor labs periodic impression, plan, and exam edited and reviewed in detail care discussed with RN Subjective Allergies: Coded Allergies: IODINE (Verified Allergy, Unknown, 05/18/19) Subjective care noted and reviewed all appreciated and imaging noted NGT in place still NPO Objective Last 24 Hour Vital Signs Date Time Temp Pulse Resp B/P (MAP) Pulse Ox O2 Delivery O2 Flow Rate FiO2 05/23/19 04:00 98.2 79 17 147/70 (95) 98 05/23/19 00:00 98.1 75 17 148/71 (96) 96 05/22/19 21:00 Room Air 05/22/19 20:00 97.8 81 17 152/77 (102) 95 05/22/19 16:14 98.0 79 18 137/76 (96) 98 05/22/19 11:47 97.7 80 19 143/74 (97) 95 05/22/19 08:35 97.4 82 18 139/69 (92) 96 Intake and Output 05/22/19 05/23/19 19:00 07:00 Intake Total 150 ml Output Total 150 ml 125 ml Balance 0 ml -125 ml Intake IV Total 150 ml Gastric Drainage Total 150 ml 125 ml # Voids 2 2 Laboratory Tests 05/23/19 05:27: White Blood Count 5.4, Red Blood Count 3.38L, Hemoglobin 12.4, Hematocrit 35.6L , Mean Corpuscular Volume 106H, Mean Corpuscular Hemoglobin 36.6H, Mean Corpuscular Hemoglobin Concent 34.7, Red Cell Distribution Width 11.7, Platelet Count 251, Mean Platelet Volume 5.2L, Neutrophils (%) (Auto) 73.9, Lymphocytes ( %) (Auto) 13.2L, Monocytes (%) (Auto) 11.6H, Eosinophils (%) (Auto) 0.7, Basophils (%) (Auto) 0.6, Sodium Level 131L, Potassium Level 3.1L, Chloride Level 96L, Carbon Dioxide Level 19L, Anion Gap 16H, Blood Urea Nitrogen 17, Creatinine 1.0, Estimat Glomerular Filtration Rate , Glucose Level 62L, Calcium Level 8.8, Total Bilirubin 1.1H, Direct Bilirubin 0.2, Aspartate Amino Transf ( AST/SGOT) 21, Alanine Aminotransferase (ALT/SGPT) < 6L, Alkaline Phosphatase 52 , Total Protein 6.2L, Albumin 2.8L, Globulin 3.4, Albumin/Globulin Ratio 0.8L Height (Feet): 5 Height (Inches): 7.00 Weight (Pounds): 121 Objective WDWN NAD clear breath sounds bilaterally without rhonchi or wheeze [id number] without MRG nontender; reduced BS no CCE nonfocal Gagandeep Li MD May 23, 2019 08:09
--- NOTE | 2019-05-23 08:16 | Nephrology Progress Note ---
Assessment/Plan Assessment/Plan: A/P 1) YANELI- resolved 2) Hyponatremia- Na up to 131. - labs c/w SIADH. Urine OSM 512 and low UA and serum OSM - NPO for now, NG in place 3) SBO- per GI mgmt 4) Hypokalemia- being replaced with 30 meq KCL IV Subjective Date patient seen: May 23, 2019 Time patient seen: 08:11 ROS Limited/Unobtainable: No Allergies: Coded Allergies: IODINE (Verified Allergy, Unknown, 05/18/19) Subjective Patient with NG in place. Still NPO and less tender. Objective Last 24 Hour Vital Signs Date Time Temp Pulse Resp B/P (MAP) Pulse Ox O2 Delivery O2 Flow Rate FiO2 05/23/19 04:00 98.2 79 17 147/70 (95) 98 05/23/19 00:00 98.1 75 17 148/71 (96) 96 05/22/19 21:00 Room Air 05/22/19 20:00 97.8 81 17 152/77 (102) 95 05/22/19 16:14 98.0 79 18 137/76 (96) 98 05/22/19 11:47 97.7 80 19 143/74 (97) 95 05/22/19 08:35 97.4 82 18 139/69 (92) 96 Intake and Output 05/22/19 05/23/19 19:00 07:00 Intake Total 150 ml Output Total 150 ml 125 ml Balance 0 ml -125 ml Intake IV Total 150 ml Gastric Drainage Total 150 ml 125 ml # Voids 2 2 Laboratory Tests 05/23/19 05:27: White Blood Count 5.4, Red Blood Count 3.38L, Hemoglobin 12.4, Hematocrit 35.6L , Mean Corpuscular Volume 106H, Mean Corpuscular Hemoglobin 36.6H, Mean Corpuscular Hemoglobin Concent 34.7, Red Cell Distribution Width 11.7, Platelet Count 251, Mean Platelet Volume 5.2L, Neutrophils (%) (Auto) 73.9, Lymphocytes ( %) (Auto) 13.2L, Monocytes (%) (Auto) 11.6H, Eosinophils (%) (Auto) 0.7, Basophils (%) (Auto) 0.6, Sodium Level 131L, Potassium Level 3.1L, Chloride Level 96L, Carbon Dioxide Level 19L, Anion Gap 16H, Blood Urea Nitrogen 17, Creatinine 1.0, Estimat Glomerular Filtration Rate , Glucose Level 62L, Calcium Level 8.8, Total Bilirubin 1.1H, Direct Bilirubin 0.2, Aspartate Amino Transf ( AST/SGOT) 21, Alanine Aminotransferase (ALT/SGPT) < 6L, Alkaline Phosphatase 52 , Total Protein 6.2L, Albumin 2.8L, Globulin 3.4, Albumin/Globulin Ratio 0.8L Height (Feet): 5 Height (Inches): 7.00 Weight (Pounds): 121 General Appearance: no apparent distress, alert EENT: normal ENT inspection Neck: normal alignment, supple Cardiovascular: normal rate, regular rhythm Respiratory/Chest: lungs clear, normal breath sounds Abdomen: non tender, absent bowel sounds Edema: no edema noted Arm (L), no edema noted Arm (R), no edema noted Leg (L), no edema noted Leg (R), no edema noted Pedal (L), no edema noted Pedal (R), no edema noted Generalized Redd Hanson MD May 23, 2019 08:16
--- NOTE | 2019-05-23 08:35 | NUR ---
NURSE NOTES: Patient off unit for procedure in stable condition. IV patent.
[2019-05-23] MEDS: Pantoprazole Inj IVP SCH ×2 (10:25→20:29)
--- NOTE | 2019-05-23 10:25 | NUR ---
NURSE NOTES: Patient came back from procedure in stable condition. NG tube connected to suction as ordered. Will continue to monitor.
[2019-05-23] MEDS: cefTRIAXone 1 GM in D5W 55 ML IVPB SCH (10:35)
--- NOTE | 2019-05-23 12:53 | NUR ---
FILTER PRESS PUMPERINSURANCE MANAGER SI:HYPOKALEMIA . SBO VS: BP 158/77, P 75, T 97.6, RR 20, SpO2 97 RBC 3.38, Hct 35.6, Na 131, K 3.1 IS:POTASSIUM CHLORIDE 100mLS IVPB CEFTRIAXONE 55ml IVPB PROTONIX 40mG NS x1L IV 3E MED/SURG STATUS
--- NOTE | 2019-05-23 13:38 | Infectious Diseases Prog Note ---
Assessment/Plan Assessment/Plan IMPRESSION: 1. Klebsiella urinary tract infection, 2. small bowel obstruction. 3. Hyponatremia. 4. History of colon cancer. 5. Acute renal failure that is resolved. 6. Hypokalemia RECOMMENDATIONS: We will continue ceftriaxone Subjective ROS Limited/Unobtainable: No Constitutional: Reports: no symptoms Respiratory: Reports: no symptoms Cardiovascular: Reports: no symptoms Gastrointestinal/Abdominal: Reports: other - Abdominal pain, NPO Genitourinary: Reports: no symptoms Allergies: Coded Allergies: IODINE (Verified Allergy, Unknown, 05/18/19) Objective Vital Signs Last 24 Hour Vital Signs Date Time Temp Pulse Resp B/P (MAP) Pulse Ox O2 Delivery O2 Flow Rate FiO2 05/23/19 12:00 97.6 83 20 153/74 (100) 98 05/23/19 09:00 Room Air 05/23/19 08:00 98.1 78 18 158/77 (104) 97 05/23/19 04:00 98.2 79 17 147/70 (95) 98 05/23/19 00:00 98.1 75 17 148/71 (96) 96 05/22/19 21:00 Room Air 05/22/19 20:00 97.8 81 17 152/77 (102) 95 05/22/19 16:14 98.0 79 18 137/76 (96) 98 Height (Feet): 5 Height (Inches): 7.00 Weight (Pounds): 121 General Appearance: no acute distress HEENT: mucous membranes moist Respiratory/Chest: lungs clear Cardiovascular: normal rate Abdomen: other - Tender, NG to suction Extremities: no edema Skin: no rash Neurologic/Psychiatric: alert, oriented x 3, responsive Laboratory Tests Test 05/23/19 05:27 White Blood Count 5.4 K/UL (4.8-10.8) Red Blood Count 3.38 M/UL (4.20-5.40) L Hemoglobin 12.4 G/DL (12.0-16.0) Hematocrit 35.6 % (37.0-47.0) L Mean Corpuscular Volume 106 FL (80-99) H Mean Corpuscular Hemoglobin 36.6 PG (27.0-31.0) H Mean Corpuscular Hemoglobin Concent 34.7 G/DL (32.0-36.0) Red Cell Distribution Width 11.7 % (11.6-14.8) Platelet Count 251 K/UL (150-450) Mean Platelet Volume 5.2 FL (6.5-10.1) L Neutrophils (%) (Auto) 73.9 % (45.0-75.0) Lymphocytes (%) (Auto) 13.2 % (20.0-45.0) L Monocytes (%) (Auto) 11.6 % (1.0-10.0) H Eosinophils (%) (Auto) 0.7 % (0.0-3.0) Basophils (%) (Auto) 0.6 % (0.0-2.0) Sodium Level 131 MMOL/L (136-145) L Potassium Level 3.1 MMOL/L (3.5-5.1) L Chloride Level 96 MMOL/L (98-107) L Carbon Dioxide Level 19 MMOL/L (21-32) L Anion Gap 16 mmol/L (5-15) H Blood Urea Nitrogen 17 mg/dL (7-18) Creatinine 1.0 MG/DL (0.55-1.30) Estimat Glomerular Filtration Rate mL/min (>60) Glucose Level 62 MG/DL (74-106) L Calcium Level 8.8 MG/DL (8.5-10.1) Total Bilirubin 1.1 MG/DL (0.2-1.0) H Direct Bilirubin 0.2 MG/DL (0.0-0.3) Aspartate Amino Transf (AST/SGOT) 21 U/L (15-37) Alanine Aminotransferase (ALT/SGPT) < 6 U/L (12-78) L Alkaline Phosphatase 52 U/L (46-116) Total Protein 6.2 G/DL (6.4-8.2) L Albumin 2.8 G/DL (3.4-5.0) L Globulin 3.4 g/dL Albumin/Globulin Ratio 0.8 (1.0-2.7) L Current Medications Medications (Trade) Dose Ordered Sig/Willian Route PRN Reason Start Time Stop Time Status Last Admin Dose Admin Ceftriaxone Sodium 1 gm/ Dextrose 55 ml @ 110 mls/hr Q24H IVPB 05/21/19 10:00 05/28/19 09:59 05/23/19 10:35 Lorazepam (Ativan 2mg/ml 1ml) 1 mg Q3H PRN IV For Anxiety 05/21/19 13:30 05/28/19 13:29 Morphine Sulfate (Morphine Sulfate) 2 mg Q3H PRN IVP For Pain 05/19/19 05:15 05/26/19 05:14 05/19/19 14:28 Ondansetron HCl (Zofran) 4 mg Q6H PRN IVP Nausea & Vomiting 05/19/19 05:15 06/18/19 05:14 Pantoprazole (Protonix) 40 mg EVERY 12 HOURS IVP 05/21/19 01:00 06/20/19 00:59 05/23/19 10:25 Potassium Chloride 100 ml @ 100 mls/hr NOW ONCE IVPB 05/23/19 13:30 05/23/19 14:29 Sodium Chloride 1,000 ml @ 50 mls/hr Q20H IV 05/22/19 08:00 06/21/19 07:59 05/23/19 04:24 David Castellanos MD May 23, 2019 13:37
--- NOTE | 2019-05-23 14:20 | Surgery Progress Note ---
Surgery Progress Note Subjective Additional Comments states feels better no n/v/f/c no flatus no bm pending gi contrast study results Objective Last 24 Hour Vital Signs Date Time Temp Pulse Resp B/P (MAP) Pulse Ox O2 Delivery O2 Flow Rate FiO2 05/23/19 12:00 97.6 83 20 153/74 (100) 98 05/23/19 09:00 Room Air 05/23/19 08:00 98.1 78 18 158/77 (104) 97 05/23/19 04:00 98.2 79 17 147/70 (95) 98 05/23/19 00:00 98.1 75 17 148/71 (96) 96 05/22/19 21:00 Room Air 05/22/19 20:00 97.8 81 17 152/77 (102) 95 05/22/19 16:14 98.0 79 18 137/76 (96) 98 I&O Intake and Output 05/22/19 05/23/19 19:00 07:00 Intake Total 150 ml Output Total 150 ml 125 ml Balance 0 ml -125 ml Intake IV Total 150 ml Gastric Drainage Total 150 ml 125 ml # Voids 2 2 Cardiovascular: RSR Respiratory: clear Abdomen: soft, non-tender, non-distended, decreased bowel sounds Extremities: no edema, no tenderness, no cyanosis Laboratory Tests Test 05/23/19 05:27 White Blood Count 5.4 K/UL (4.8-10.8) Red Blood Count 3.38 M/UL (4.20-5.40) L Hemoglobin 12.4 G/DL (12.0-16.0) Hematocrit 35.6 % (37.0-47.0) L Mean Corpuscular Volume 106 FL (80-99) H Mean Corpuscular Hemoglobin 36.6 PG (27.0-31.0) H Mean Corpuscular Hemoglobin Concent 34.7 G/DL (32.0-36.0) Red Cell Distribution Width 11.7 % (11.6-14.8) Platelet Count 251 K/UL (150-450) Mean Platelet Volume 5.2 FL (6.5-10.1) L Neutrophils (%) (Auto) 73.9 % (45.0-75.0) Lymphocytes (%) (Auto) 13.2 % (20.0-45.0) L Monocytes (%) (Auto) 11.6 % (1.0-10.0) H Eosinophils (%) (Auto) 0.7 % (0.0-3.0) Basophils (%) (Auto) 0.6 % (0.0-2.0) Sodium Level 131 MMOL/L (136-145) L Potassium Level 3.1 MMOL/L (3.5-5.1) L Chloride Level 96 MMOL/L (98-107) L Carbon Dioxide Level 19 MMOL/L (21-32) L Anion Gap 16 mmol/L (5-15) H Blood Urea Nitrogen 17 mg/dL (7-18) Creatinine 1.0 MG/DL (0.55-1.30) Estimat Glomerular Filtration Rate mL/min (>60) Glucose Level 62 MG/DL (74-106) L Calcium Level 8.8 MG/DL (8.5-10.1) Total Bilirubin 1.1 MG/DL (0.2-1.0) H Direct Bilirubin 0.2 MG/DL (0.0-0.3) Aspartate Amino Transf (AST/SGOT) 21 U/L (15-37) Alanine Aminotransferase (ALT/SGPT) < 6 U/L (12-78) L Alkaline Phosphatase 52 U/L (46-116) Total Protein 6.2 G/DL (6.4-8.2) L Albumin 2.8 G/DL (3.4-5.0) L Globulin 3.4 g/dL Albumin/Globulin Ratio 0.8 (1.0-2.7) L Plan Problems: (1) Hyponatremia (2) Renal insufficiency (3) UTI (urinary tract infection) (4) Small bowel obstruction Assessment & Plan: 78 year old female with abdominal pain, nausea, emesis, possible sbo. afebrile, HD stable, labs noted CT as below. patient states prior abdominal surgery from anterior exposure of spine surgery and possible bowel resection for cancer but unsure of details. Still no flatus or bowel movement. NG tube in place with no significant output. Abdominal exam slightly improved today with less tenderness. KUB unchanged NG tube to suction NPO IV fluids Upper GI contrast study today pending completion. will follow with serial exams thank you (5) Abdominal pain Javier Urbina May 23, 2019 14:20
--- NOTE | 2019-05-23 14:27 | NUR ---
RADIOLOGY DEPT, SMALL BOWEL EXAM STILL IN PROGRESS. PLEASE DO NOT CONNECT TO SUCTION UNTIL NOTIFIED BY RADIOLOGY .-P.DYE
--- NOTE | 2019-05-23 14:54 | NUR ---
INSURANCE UPDATED CLINICALS AND REVIEW HAVE BEEN FAXED TO: [employer] PLEASE FAX THE REVIEW AND CLINICAL TO FX: [phone] PH: [phone]
[2019-05-23] MEDS ORDERED: Lidocaine 1% MPF 10mg/ml 5ml ONE (16:00)
[2019-05-23] MEDS ORDERED: Glycopyrrolate 0.2mg/ml 1ml Vial ONE (16:00)
[2019-05-23] MEDS ORDERED: Phenylephrine 10mg/ml Vial ONE (16:00)
[2019-05-23] MEDS ORDERED: NS Irrig 1000ml ONE (16:00)
[2019-05-23] MEDS ORDERED: Sterile Water Irrig 1000ml IRRIG ONE (16:00)
[2019-05-23] MEDS ORDERED: Neostigmine 1mg/ml 10ml Inj ONE (16:00)
[2019-05-23] MEDS ORDERED: Propofol 200mg/20ml IV ONE (16:00)
[2019-05-23] MEDS ORDERED: Metoclopramide 10mg/2ml Inj ONE (16:00)
[2019-05-23] MEDS ORDERED: NeoSporin Gu Irrig 1ml Amp IRRIG ONE (16:09)
[2019-05-23] MEDS ORDERED: Succinylcholine 20mg/ml 10ml vial ONE (16:09)
[2019-05-23] MEDS ORDERED: Bacitracin 50000 Units Vial ONE (16:09)
[2019-05-23] MEDS ORDERED: Zemuron 50mg/5ml Inj IV ONE (16:09)
[2019-05-23] MEDS ORDERED: Hydromorphone 0.5mg/0.5ml inj IVP PRN (16:15)
[2019-05-23] MEDS ORDERED: fentaNYL 100 mcg/2 mL IV PRN (16:15)
[2019-05-23] MEDS ORDERED: Metoclopramide 10mg/2ml Inj IVP PRN ×2 (16:15→18:30)
--- NOTE | 2019-05-23 16:25 | Pre-Procedure Note/Attestation ---
Pre-Procedure Note/Attestation Complete Prior to Procedure Planned Procedure: not applicable Procedure Narrative: exploratory laparotomy, possible bowel resection Indications for Procedure Pre-Operative Diagnosis: small bowel obstruction Attestation I attest that I discussed the nature of the procedure; its benefits; risks and complications; and alternatives (and the risks and benefits of such alternatives ), prior to the procedure, with the patient (or the patient's legal ict sales representative). I attest that, if there was a reasonable possibility of needing a blood transfusion, the patient (or the patient's legal ict sales representative) was given the [facility] standardized written summary, pursuant to the [place] Blood Safety Act ([place] Health and Safety Code # 1645, as amended). I attest that I re-evaluated the patient just prior to the surgery and that there has been no change in the patient's H&P, except as documented below: Javier Urbina May 23, 2019 16:25
--- NOTE | 2019-05-23 16:25 | NUR ---
NURSE NOTES: Patient off unit for surgery in stable condition. IV flushed and patent.
[2019-05-23 16:27] LABS: BASOPHILS % (AUTO) 1.3 % (0.0-2.0); EOSINOPHILS % (AUTO) 0.1 % (0.0-3.0); HEMATOCRIT 40.5 % (37.0-47.0); HEMOGLOBIN 14.6 G/DL (12.0-16.0); LYMPHOCYTES % (AUTO) 6.8 % (20.0-45.0); MEAN CORPUSCULAR VOLUME 103 FL (80-99); MONOCYTES % (AUTO) 7.4 % (1.0-10.0); NEUTROPHILS % (AUTO) 84.3 % (45.0-75.0); PLATELET COUNT 300 K/UL (150-450); RED BLOOD COUNT 3.95 M/UL (4.20-5.40); RED CELL DISTRIBUTION WIDTH 11.3 % (11.6-14.8); WHITE BLOOD COUNT 7.3 K/UL (4.8-10.8)
[2019-05-23] MEDS ORDERED: Morphine Sulfate 10mg/ml Inj ONE (16:32)
[2019-05-23 16:41] LABS: ANION GAP 20 mmol/L (5-15); BLOOD UREA NITROGEN 20 mg/dL (7-18); CALCIUM 10.2 MG/DL (8.5-10.1); CARBON DIOXIDE 20 MMOL/L (21-32); CHLORIDE 95 MMOL/L (98-107); CREATININE 1.2 MG/DL (0.55-1.30); POTASSIUM 3.7 MMOL/L (3.5-5.1); SODIUM 134 MMOL/L (136-145)
[2019-05-23 16:43] LABS: AMMONIA < 10 umol/L (11-32)
--- NOTE | 2019-05-23 16:53 | Diagnostic Imaging Report ---
Indication: Abdominal distention, suspected small bowel obstruction on prior imaging studies Technique: Patient ingested water-soluble contrast. Serial images obtained over the abdomen Comparison: 05/22/2018 Findings: Initial vessel scrapper helper image demonstrates nasogastric tube tip in the distal esophagus. This was advanced by the patient's nurse, and a subsequent vessel scrapper helper image demonstrates tip of the nasogastric tube in the expected level of the gastric antrum. Non Morse Intercept Technician image also demonstrates markedly dilated small bowel loops, degree of distention similar to the previous exam. A surgical staple line is seen in the right upper quadrant. There is evidence of prior L5 vertebral augmentation procedure and evidence of prior spinal fusion surgery. There is evidence of prior bilateral hip arthroplasty. Subsequent images demonstrate contrast filling markedly dilated small bowel loops. Slow but steady progression of contrast through the small bowel is demonstrated, but as of 4.5 hours, contrast remains within the proximal dilated small bowel and has not passed beyond the point of transition Impression: Findings compatible with high-grade small bowel obstruction Images previously reviewed in person with Dr. Urbina
[2019-05-23] MEDS ORDERED: NS Irrig 1000ml IRRIG ONE ×2 (16:55→17:15)
--- NOTE | 2019-05-23 16:55 | Diagnostic Imaging Report ---
Indications: Altered mental status Technique: Spiral acquisitions obtained through the brain. Angled axial and coronal 5 x 5 mm slices were reconstructed. Total dose length product 1386.64 mGycm. CTDI vol(s) 70.38 mGy. Dose reduction achieved using automated exposure control Comparison: None. Findings: There is age-related enlargement of the ventricles and extra axial CSF spaces. There is periventricular deep white matter low-attenuation, consistent with chronic microvascular ischemic changes. No acute intracranial hemorrhage or edema, mass effect, nor midline shift. The calvarium is intact. There is evidence of ethmoid sinus disease on the left. The mastoids are clear. Impression: Chronic and age-related changes. Negative for acute intracranial bleed or mass effect The CT scanner at [facility] is accredited by the [employer] and the scans are performed using protocols designed to limit radiation exposure to as low as reasonably achievable to attain images of sufficient resolution adequate for diagnostic evaluation.
--- NOTE | 2019-05-23 17:03 | Diagnostic Imaging Report ---
Indication: Chest pain Technique: One view of the chest Comparison: 05/19/2019 Findings: Contrast is now seen within the stomach and small bowel from recent small bowel study. Hazy opacity at the left lung base may indicate a small amount of pleural fluid. Lungs and pleural spaces are otherwise clear. The heart size is normal. There is a nasogastric tube in good position. Impression: Questionable left basilar hazy opacity, if real could represent a small left pleural effusion Other findings as noted
--- NOTE | 2019-05-23 17:10 | NUR ---
NURSE NOTES: Spoke to regarding lab result and notified patient went to surgery. No new order at this time. Will continue to monitor.
--- NOTE | 2019-05-23 17:25 | NUR ---
NURSE NOTES: Noted patient more confused than this morning and patient vomited moderate amount green emesis. Vital signs stable. Notified. and new order received. Order read back and carried out. Addendum: 05/23/19 at 1844 by JUWAN ANSARI RN NURSE NOTES: Correct time for note 15:15
--- NOTE | 2019-05-23 18:06 | Anethesia Preoperative Eval ---
Anesthesia Pre-op PMH/ROS General Date of Evaluation: May 23, 2019 Time of Evaluation: 16:30 Anesthesiologist: henna ASA Score: ASA 4 Mallampati Score Class I : Soft palate, uvula, fauces, pillars visible Class II: Soft palate, uvula, fauces visible Class III: Soft palate, base of uvula visible Class IV: Only hard plate visible Mallampati Classification: Class II Surgeon: Carlitos Diagnosis: SBO Surgical Procedure: Ex lap Anesthesia History: none Family History: no anesthesia problems Allergies: Coded Allergies: IODINE (Verified Allergy, Unknown, 05/18/19) Patient NPO?: Yes NPO Date: May 23, 2019 NPO Time: 0000 Past Medical History Cardiovascular: Reports: HTN; Denies: CAD, [place], valve dz, arrhythmia, other Pulmonary: Denies: asthma, COPD, [place]INK[place], other Gastrointestinal/Genitourinary: Reports: GERD, CRI, other - SBO Neurologic/Psychiatric: Reports: dementia, other - Oriented to person Endocrine: Denies: DM, hypothyroidism, steroids, other HEENT: Denies: cataract (L), cataract (R), glaucoma, [place] (L), [place] (R), other Hematology/Immune: Denies: anemia, DVT, bleeding disorder, other Musculoskeletal/Integumentary: Denies: OA, RA, DJD, DDD, edema, other PSxH Narrative: abd surgey Anesthesia Pre-op Phys. Exam Physician Exam Last Vital Signs Date Time Temp Pulse Resp B/P (MAP) Pulse Ox O2 Delivery O2 Flow Rate FiO2 05/23/19 16:00 97.8 92 22 149/84 (105) 100 05/23/19 09:00 Room Air Constitutional: NAD Neurologic: other - son consented; disoriented Cardiovascular: RRR Respiratory: CTA Gastrointestinal: S/NT/ND Airway Exam Mallampati Classification 2 Mallampati Score: Class II MO: full ROM: full Teeth: broken Dentures: no upper, no lower Anesthesia Pre-op A/P Labs Hematology Test 05/23/19 05:27 05/23/19 15:40 White Blood Count 5.4 K/UL (4.8-10.8) 7.3 K/UL (4.8-10.8) Red Blood Count 3.38 M/UL (4.20-5.40) L 3.95 M/UL (4.20-5.40) L Hemoglobin 12.4 G/DL (12.0-16.0) 14.6 G/DL (12.0-16.0) Hematocrit 35.6 % (37.0-47.0) L 40.5 % (37.0-47.0) Mean Corpuscular Volume 106 FL (80-99) H 103 FL (80-99) H Mean Corpuscular Hemoglobin 36.6 PG (27.0-31.0) H 36.9 PG (27.0-31.0) H Mean Corpuscular Hemoglobin Concent 34.7 G/DL (32.0-36.0) 36.1 G/DL (32.0-36.0) H Red Cell Distribution Width 11.7 % (11.6-14.8) 11.3 % (11.6-14.8) L Platelet Count 251 K/UL (150-450) 300 K/UL (150-450) Mean Platelet Volume 5.2 FL (6.5-10.1) L 5.3 FL (6.5-10.1) L Neutrophils (%) (Auto) 73.9 % (45.0-75.0) 84.3 % (45.0-75.0) H Lymphocytes (%) (Auto) 13.2 % (20.0-45.0) L 6.8 % (20.0-45.0) L Monocytes (%) (Auto) 11.6 % (1.0-10.0) H 7.4 % (1.0-10.0) Eosinophils (%) (Auto) 0.7 % (0.0-3.0) 0.1 % (0.0-3.0) Basophils (%) (Auto) 0.6 % (0.0-2.0) 1.3 % (0.0-2.0) Chemistry Test 05/23/19 05:27 05/23/19 15:40 Sodium Level 131 MMOL/L (136-145) L 134 MMOL/L (136-145) L Potassium Level 3.1 MMOL/L (3.5-5.1) L 3.7 MMOL/L (3.5-5.1) Chloride Level 96 MMOL/L (98-107) L 95 MMOL/L (98-107) L Carbon Dioxide Level 19 MMOL/L (21-32) L 20 MMOL/L (21-32) L Anion Gap 16 mmol/L (5-15) H 20 mmol/L (5-15) H Blood Urea Nitrogen 17 mg/dL (7-18) 20 mg/dL (7-18) H Creatinine 1.0 MG/DL (0.55-1.30) 1.2 MG/DL (0.55-1.30) Estimat Glomerular Filtration Rate mL/min (>60) mL/min (>60) Glucose Level 62 MG/DL (74-106) L 81 MG/DL (74-106) Calcium Level 8.8 MG/DL (8.5-10.1) 10.2 MG/DL (8.5-10.1) H Total Bilirubin 1.1 MG/DL (0.2-1.0) H Direct Bilirubin 0.2 MG/DL (0.0-0.3) Aspartate Amino Transf (AST/SGOT) 21 U/L (15-37) Alanine Aminotransferase (ALT/SGPT) < 6 U/L (12-78) L Alkaline Phosphatase 52 U/L (46-116) Total Protein 6.2 G/DL (6.4-8.2) L Albumin 2.8 G/DL (3.4-5.0) L Globulin 3.4 g/dL Albumin/Globulin Ratio 0.8 (1.0-2.7) L Ammonia < 10 umol/L (11-32) L Studies Pre-op Studies: EKG - st Risk Assessment & Plan Assessment: NGT in place draining Plan: general Status Change Before Surgery: No Pre-Antibiotics Drug: ancef Given Within 1 Hr of Incision: Yes Time Given: 16:45 Leeann Rose CATERING DIRECTOR May 23, 2019 18:06
--- NOTE | 2019-05-23 18:24 | Brief Operative Note ---
Immediate Post Operative Note Operative Note Pre-op Diagnosis: small bowel obstruction Procedure: exploratory laparotomy extensive lysis of adhesions small bowel resection Post-op Diagnosis: same as pre-op Surgeon: fercho Anesthesiologist: james duarte Anesthesia: general Specimen: yes Complications: none Condition: stable Fluids: see records Estimated Blood Loss: minimal Drains: none Implant(s) used?: No Javier Urbina May 23, 2019 18:24
[2019-05-23] MEDS ORDERED: Morphine Sulfate 2mg/ml Inj(IV/IM USE ONLY) IVP PRN ×2 (18:30)
[2019-05-23] MEDS ORDERED: DiphenhydrAMINE 50mg/ml Inj IVP PRN (18:30)
[2019-05-23] MEDS ORDERED: Morphine Sulfate 4mg/ml Inj (IV USE ONLY) IVP PRN (18:30)
--- NOTE | 2019-05-23 18:44 | Immediate Post-Op Evaluation ---
Immediate Post-Op Evalulation Immediate Post-Op Evalulation Procedure: Ex Lap Date of Evaluation: May 23, 2019 Time of Evaluation: 18:35 IV Fluids: 1300 Blood Products: 0 Estimated Blood Loss: 20 Urinary Output: 50 Blood Pressure Systolic: 165 Blood Pressure Diastolic: 84 Pulse Rate: 94 Respiratory Rate: 14 O2 Sat by Pulse Oximetry: 99 Temperature (Fahrenheit): 97.8 Nausea: No Vomiting: No Complications none Patient Status: awake, reacts, patent Hydration Status: adequate Drug: ancef Given Within 1 Hr of Incision: Yes Time Given: 16:45 Leeann Rose CRNA May 23, 2019 18:44
--- NOTE | 2019-05-23 19:25 | NUR ---
NURSE NOTES: Report taken from CHICHI Hung. patient is in PACU recovering from surgery.
--- NOTE | 2019-05-23 19:29 | NUR ---
HAND-OFF: Report given to Jr CADET. Patient in stable condition. Addendum: 05/23/19 at 1931 by JUWAN ANSARI RN NURSE NOTES: Given report patient still in surgery.
--- NOTE | 2019-05-23 19:45 | NUR ---
NURSE NOTES: Patient brought up in hospital bed by surgical staff Bharti. Patient is sedated and arousable by name, son at bedside. A&Ox2, cofused as to where she is, what day it is, and is confused that she just had surgery. No signs of distress on room air. Having pain at surgical site 05/25. Surgical dressing c/d/i. NG tube set to Low-intermittent suction. IV sites c/d/i and patent. Lt hand running D51/2NS+20KCl at 100mls/hr. Donaldson c/d/i and patent, running light yellow urine. Bed in lowest position, call light within reach. Addendum: 05/24/19 at 0512 by Jr Lema RN No signs of distress on 2L NC
[2019-05-23] MEDS: D5 1/2NS w/KCl 20mEq 1,000 ML IV SCH (20:29)
--- NOTE | 2019-05-23 22:10 | General Progress Note ---
Assessment/Plan Assessment/Plan: Assessment - high grade SBO - no response to conservative measures Recommendations - NPO - IVF - NGT - surgical intervention - follow labs Subjective Allergies: Coded Allergies: IODINE (Verified Allergy, Unknown, 05/18/19) Subjective seen in Xray this am in mid small bowel series dilated proximal small bowel noted final read c/ high grade SBO Objective Last 24 Hour Vital Signs Date Time Temp Pulse Resp B/P (MAP) Pulse Ox O2 Delivery O2 Flow Rate FiO2 05/23/19 19:23 98.0 96 17 154/81 99 Nasal Cannula 3 05/23/19 19:10 96 19 156/83 99 Nasal Cannula 3 05/23/19 18:55 95 19 162/82 100 Simple Mask 6 05/23/19 18:45 95 15 161/81 99 Simple Mask 6 05/23/19 18:44 94 14 99 05/23/19 18:37 98 20 176/80 99 Simple Mask 6 05/23/19 18:32 95 21 166/82 99 Simple Mask 6 05/23/19 18:27 97.8 107 12 165/84 98 Simple Mask 6 05/23/19 16:00 97.8 92 22 149/84 (105) 100 05/23/19 12:00 97.6 83 20 153/74 (100) 98 05/23/19 09:00 Room Air 05/23/19 08:00 98.1 78 18 158/77 (104) 97 05/23/19 04:00 98.2 79 17 147/70 (95) 98 05/23/19 00:00 98.1 75 17 148/71 (96) 96 Intake and Output 05/22/19 05/23/19 18:59 06:59 Intake Total 150 ml Output Total 150 ml 125 ml Balance 0 ml -125 ml Intake IV Total 150 ml Gastric Drainage Total 150 ml 125 ml # Voids 2 2 Laboratory Tests 05/23/19 05:27: White Blood Count 5.4, Red Blood Count 3.38L, Hemoglobin 12.4, Hematocrit 35.6L , Mean Corpuscular Volume 106H, Mean Corpuscular Hemoglobin 36.6H, Mean Corpuscular Hemoglobin Concent 34.7, Red Cell Distribution Width 11.7, Platelet Count 251, Mean Platelet Volume 5.2L, Neutrophils (%) (Auto) 73.9, Lymphocytes ( %) (Auto) 13.2L, Monocytes (%) (Auto) 11.6H, Eosinophils (%) (Auto) 0.7, Basophils (%) (Auto) 0.6, Sodium Level 131L, Potassium Level 3.1L, Chloride Level 96L, Carbon Dioxide Level 19L, Anion Gap 16H, Blood Urea Nitrogen 17, Creatinine 1.0, Estimat Glomerular Filtration Rate , Glucose Level 62L, Calcium Level 8.8, Total Bilirubin 1.1H, Direct Bilirubin 0.2, Aspartate Amino Transf ( AST/SGOT) 21, Alanine Aminotransferase (ALT/SGPT) < 6L, Alkaline Phosphatase 52 , Total Protein 6.2L, Albumin 2.8L, Globulin 3.4, Albumin/Globulin Ratio 0.8L 05/23/19 15:35: Arterial Blood pH 7.411, Arterial Blood Partial Pressure CO2 26.3L, Arterial Blood Partial Pressure O2 81.2, Arterial Blood HCO3 16.3*L, Arterial Blood Oxygen Saturation 95.2, Arterial Blood Base Excess -6.5L, John Test Positive 05/23/19 15:40: White Blood Count 7.3, Red Blood Count 3.95L, Hemoglobin 14.6, Hematocrit 40.5, Mean Corpuscular Volume 103H, Mean Corpuscular Hemoglobin 36.9H, Mean Corpuscular Hemoglobin Concent 36.1H, Red Cell Distribution Width 11.3L, Platelet Count 300, Mean Platelet Volume 5.3L, Neutrophils (%) (Auto) 84.3H, Lymphocytes (%) (Auto) 6.8L, Monocytes (%) (Auto) 7.4, Eosinophils (%) (Auto) 0.1, Basophils (%) (Auto) 1.3, Sodium Level 134L, Potassium Level 3.7, Chloride Level 95L, Carbon Dioxide Level 20L, Anion Gap 20H, Blood Urea Nitrogen 20H, Creatinine 1.2, Estimat Glomerular Filtration Rate , Glucose Level 81, Calcium Level 10.2H, Ammonia < 10L Height (Feet): 5 Height (Inches): 7.00 Weight (Pounds): 121 Objective WDWN AA woman NCAT supple CTA RRR abd soft ND, (+) TTP epigastric and b/l UQ no edema non focal Xander Tavarez MD May 23, 2019 22:10
[2019-05-23] MEDS: Piperacillin/Tazobactam 3.375 GM in NS 110 ML IVPB SCH (22:18)
--- NOTE | 2019-05-23 23:30 | Operative Note - Dictated ---
DATE OF OPERATION: 05/23/2019 PREOPERATIVE DIAGNOSIS: Small bowel obstruction. POSTOPERATIVE DIAGNOSIS: Small bowel obstruction. OPERATION PERFORMED: 1. Exploratory laparotomy. 2. Extensive lysis of adhesions. 3. Small bowel resection. ATTENDING SURGEON: Javier Urbina M.D. NEEDLE MAKER: None. 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 ESTIMATED BLOOD LOSS: Minimal. IV FLUIDS: Please see anesthesia records. COMPLICATIONS: None. DRAINS: None. SPECIMENS: Small bowel. COUNTS: Sponge and needle count correct x2. WOUND CLASSIFICATION: Class 3. ANTIBIOTICS: The patient is given 2 g Ancef IV one hour prior to cut time. INDICATIONS FOR PROCEDURE: This is a 78-year-old female with a history of colon cancer status post right colectomy with ileocolonic anastomosis and prior spinal surgery with anterior approach, who presented with abdominal pain, nausea, vomiting. And abdominal distention. CT of the abdomen and pelvis was performed in the emergency department, which was consistent with possible small-bowel obstruction. NG-tube was placed. The patient was monitored over the course of 48 to 72 hours at which time, with NG-tube decompression, the patient was somewhat mildly improved, but still not passing flatus or having bowel movements, but abdominal exam did improve somewhat. Upper gastrointestinal study with small bowel follow-through x-ray was ordered and identified high-grade obstruction and once the patient was off NG-suction and with administered oral contrast, she did begin to develop nausea followed by emesis and therefore, at this point, decision was made to go to the operating room for exploration. Risks, benefits, and alternatives were discussed with the patient and her family. Consent was obtained. OPERATIVE NOTE: The patient was taken to the operating room and placed on the operating table in supine position with bilateral arms out. All bony prominences were well padded. SCDs were placed. Preoperative time-out taken to identify the patient, procedure, operative staff, and surgical staff. General anesthesia was induced. The patient was intubated. The patient was given 2 g Ancef IV one hour prior to cut time. A Donaldson catheter was inserted using standard sterile technique. The abdomen was clipped, prepped, and draped in standard surgical fashion. A midline incision was made utilizing the patient's prior midline incision with a #10 scalpel. Incision was carried down to the fascia, which was elevated and incised. Entry into the abdomen was obtained without complication. There was significant dilated bowel loops identified at this time and slow dissection of these bowel loops allowed us to identify the transition point, which was clearly noted around the level of the umbilicus with decompressed distal bowel and significantly dilated fluid-filled air-filled proximal bowel. This area of obstruction and adhesion to the anterior abdominal wall was taken down with a Metzenbaum scissors. At this point, strictured at the level of the small bowel and once the stricture was alleviated, there was concerns for potential viability of this 1 small 3 mm ring of bowel that was densely adhered and causing a complete high-grade obstruction. For the time being, the remainder of the small bowel was ran and extensive lysis adhesions of the bowel to the anterior abdominal wall as well as intra loops was performed to ensure no other locations of bowel defect or obstruction. The bowel was run from the ligament of Treitz down to the ileocolonic anastomosis and only significant portion of concern was the area where the high-grade obstruction was noted and the strictured potentially nonviable bowel at this point. At this time, the remaining of the abdomen was inspected. The liver was inspected and noted to be otherwise without significant abnormality, just chronic. The stomach was identified, palpated, and the NG-tube noted. The stomach was fluid filled and approximately 1.8 liters of fluid was evacuated throughout the procedure from the stomach. The pelvis was noted and the sigmoid colon that could be identified in the ascending colon were otherwise healthy. The ileocolonic anastomosis was noted and otherwise healthy. At this time, decision was made to do a small bowel resection of the area of the strictured bowel. An enterotomy was made at the stricture and a linear 55 mm stapler was used and fired to create a [id number] small bowel anastomosis. The anastomosis was checked and noted to be hemostatic and intact. Following this, a 3-0 silk stay sutures were placed at the remaining enterotomy defect where the stricture was and this area of strictured potentially nonviable small bowel was resected using a linear OSVALDO 55 mm stapler. This segment of small bowel was sent to pathology for review labeled small bowel. Following this, the 2 staple lines were checked and noted to be intact and hemostatic. A 3-0 Lembert silk pop-off sutures were placed for the second row. The anastomosis was noted to be patent and intact. At this time, the remainder of the abdomen was irrigated and suctioned. Good hemostasis was noted. No other abnormalities noted. We began our closure. The fascia was reapproximated using 0 looped PDS suture. The subcutaneous tissue was irrigated and cleansed and the skin was reapproximated using surgical skin xi. Dressings were applied. The patient tolerated the procedure well and was taken to the postanesthetic care unit in stable condition. Javier Urbina M.D. DR: DALE JOB#: [id number] CC: BETSY
[2019-05-24] VITALS: BP 149/88
--- NOTE | 2019-05-24 01:20 | NUR ---
NURSE NOTES: Patient confused and pulled garcia out. Placed new garcia Nigerien 18G. Patent and draining.
[2019-05-24 04:00] VITALS: BP 147/76
[2019-05-24] MEDS: D5 1/2NS w/KCl 20mEq 1,000 ML IV SCH ×2 (05:47→16:09)
[2019-05-24] MEDS: Piperacillin/Tazobactam 3.375 GM in NS 110 ML IVPB SCH ×3 (05:48→22:26)
[2019-05-24 06:28] LABS: ANION GAP 10 mmol/L (5-15); BLOOD UREA NITROGEN 20 mg/dL (7-18); CALCIUM 8.9 MG/DL (8.5-10.1); CARBON DIOXIDE 25 MMOL/L (21-32); CHLORIDE 101 MMOL/L (98-107); CREATININE 1.5 MG/DL (0.55-1.30); POTASSIUM 3.9 MMOL/L (3.5-5.1); SODIUM 135 MMOL/L (136-145)
[2019-05-24 06:31] LABS: HEMATOCRIT 39.8 % (37.0-47.0); HEMOGLOBIN 13.8 G/DL (12.0-16.0); MEAN CORPUSCULAR VOLUME 106 FL (80-99); PLATELET COUNT 274 K/UL (150-450); RED BLOOD COUNT 3.74 M/UL (4.20-5.40); RED CELL DISTRIBUTION WIDTH 12.3 % (11.6-14.8); WHITE BLOOD COUNT 8.4 K/UL (4.8-10.8)
[2019-05-24 06:59] LABS: PHOSPHORUS 2.9 MG/DL (2.5-4.9)
--- NOTE | 2019-05-24 07:04 | 48 Hour Post Anesthesia Eval ---
Post Anesthesia Evaluation Procedure: Ex Lap Date of Evaluation: May 24, 2019 Time of Evaluation: 07:03 Blood Pressure Systolic: 147 0: 76 Pulse Rate: 100 Respiratory Rate: 20 Temperature (Fahrenheit): 98.9 O2 Sat by Pulse Oximetry: 99 Airway: patent Nausea: No Vomiting: No Pain Intensity: 3 Hydration Status: adequate Cardiopulmonary Status: Stable Mental Status/LOC: patient returned to baseline Follow-up Care/Observations: 0 Post-Anesthesia Complications: 0 Follow-up care needed: N/A Nehemiah Light MD May 24, 2019 07:04
--- NOTE | 2019-05-24 07:11 | NUR ---
HAND-OFF: Report given to CHICHI Hung. Patient pulled out left IV site, Rt site still patent.
--- NOTE | 2019-05-24 07:15 | NUR ---
NURSE NOTES: Patient lying in bed awake. Complain of pain 5/10 on surgical site and will continue to monitor. Surgical dressing intact and dry. IV dressing intact and dry. Donaldson catheter patent and draining well. NG tube connected suction as ordered. Bed lowest position. Call light within reach. Will continue to monitor.
[2019-05-24 08:00] VITALS: BP 146/73
--- NOTE | 2019-05-24 08:15 | General Progress Note ---
Assessment/Plan Assessment/Plan: Assessment - high grade SBO, s/p ex lap, OSMAR, and SB resection Recommendations - NPO - IVF - NGT - post op care - follow labs Subjective Allergies: Coded Allergies: IODINE (Verified Allergy, Unknown, 05/18/19) Subjective above noted POD #1, s/p OSMAR and SB resection NGT in c/o dry mouth Objective Last 24 Hour Vital Signs Date Time Temp Pulse Resp B/P (MAP) Pulse Ox O2 Delivery O2 Flow Rate FiO2 05/24/19 07:04 100 20 99 05/24/19 04:00 98.9 100 20 147/76 (99) 99 05/24/19 00:00 99.4 83 16 149/88 (108) 97 05/23/19 21:00 Room Air 05/23/19 19:23 98.0 96 17 154/81 99 Nasal Cannula 3 05/23/19 19:10 96 19 156/83 99 Nasal Cannula 3 05/23/19 18:55 95 19 162/82 100 Simple Mask 6 05/23/19 18:45 95 15 161/81 99 Simple Mask 6 05/23/19 18:44 94 14 99 05/23/19 18:37 98 20 176/80 99 Simple Mask 6 05/23/19 18:32 95 21 166/82 99 Simple Mask 6 05/23/19 18:27 97.8 107 12 165/84 98 Simple Mask 6 05/23/19 16:00 97.8 92 22 149/84 (105) 100 05/23/19 12:00 97.6 83 20 153/74 (100) 98 05/23/19 09:00 Room Air Intake and Output 05/23/19 05/24/19 19:00 07:00 Intake Total 1400 ml 100 ml Output Total 70 ml 1250 ml Balance 1330 ml -1150 ml Intake IV Total 1300 ml 100 ml Other 100 ml Output Urine Total 50 ml 1250 ml Estimated Blood Loss 20 ml # Voids 2 Laboratory Tests 05/23/19 15:35: Arterial Blood pH 7.411, Arterial Blood Partial Pressure CO2 26.3L, Arterial Blood Partial Pressure O2 81.2, Arterial Blood HCO3 16.3*L, Arterial Blood Oxygen Saturation 95.2, Arterial Blood Base Excess -6.5L, John Test Positive 05/23/19 15:40: White Blood Count 7.3, Red Blood Count 3.95L, Hemoglobin 14.6, Hematocrit 40.5, Mean Corpuscular Volume 103H, Mean Corpuscular Hemoglobin 36.9H, Mean Corpuscular Hemoglobin Concent 36.1H, Red Cell Distribution Width 11.3L, Platelet Count 300, Mean Platelet Volume 5.3L, Neutrophils (%) (Auto) 84.3H, Lymphocytes (%) (Auto) 6.8L, Monocytes (%) (Auto) 7.4, Eosinophils (%) (Auto) 0.1, Basophils (%) (Auto) 1.3, Sodium Level 134L, Potassium Level 3.7, Chloride Level 95L, Carbon Dioxide Level 20L, Anion Gap 20H, Blood Urea Nitrogen 20H, Creatinine 1.2, Estimat Glomerular Filtration Rate , Glucose Level 81, Calcium Level 10.2H, Ammonia < 10L 05/24/19 05:50: White Blood Count 8.4, Red Blood Count 3.74L, Hemoglobin 13.8, Hematocrit 39.8, Mean Corpuscular Volume 106H, Mean Corpuscular Hemoglobin 37.0H, Mean Corpuscular Hemoglobin Concent 34.8, Red Cell Distribution Width 12.3, Platelet Count 274, Mean Platelet Volume 5.3L, Neutrophils (%) (Auto) , Lymphocytes (%) ( Auto) , Monocytes (%) (Auto) , Eosinophils (%) (Auto) , Basophils (%) (Auto) , Sodium Level 135L, Potassium Level 3.9, Chloride Level 101, Carbon Dioxide Level 25, Anion Gap 10, Blood Urea Nitrogen 20H, Creatinine 1.5H, Estimat Glomerular Filtration Rate , Glucose Level 188#H, Calcium Level 8.9, Phosphorus Level 2.9, Magnesium Level 1.4L Height (Feet): 5 Height (Inches): 7.00 Weight (Pounds): 121 Objective WDWN AA woman NCAT, (+) NGT supple CTA RRR abd soft ND, (+) midline incision and dressing no edema non focal Xander Tavarez MD May 24, 2019 08:15
[2019-05-24] MEDS: Pantoprazole Inj IVP SCH (08:37)
[2019-05-24] MEDS: Heparin 5000 units/ml inj SUBQ SCH ×2 (08:42→22:28)
--- NOTE | 2019-05-24 08:48 | General Progress Note ---
Assessment/Plan Assessment/Plan: IMPRESSION small bowel obstruction abdominal pain colon ca UTI hyponatremia post op lysis of adhesions and small bowel resection PLAN NPO postop care pain control GI and GS renal noted IV hydration impression, plan, and exam edited and reviewed in detail care discussed with RN Subjective Allergies: Coded Allergies: IODINE (Verified Allergy, Unknown, 05/18/19) Subjective care noted and reviewed post op Objective Last 24 Hour Vital Signs Date Time Temp Pulse Resp B/P (MAP) Pulse Ox O2 Delivery O2 Flow Rate FiO2 05/24/19 08:00 97.7 93 20 146/73 (97) 100 05/24/19 07:04 100 20 99 05/24/19 04:00 98.9 100 20 147/76 (99) 99 05/24/19 00:00 99.4 83 16 149/88 (108) 97 05/23/19 21:00 Room Air 05/23/19 19:23 98.0 96 17 154/81 99 Nasal Cannula 3 05/23/19 19:10 96 19 156/83 99 Nasal Cannula 3 05/23/19 18:55 95 19 162/82 100 Simple Mask 6 05/23/19 18:45 95 15 161/81 99 Simple Mask 6 05/23/19 18:44 94 14 99 05/23/19 18:37 98 20 176/80 99 Simple Mask 6 05/23/19 18:32 95 21 166/82 99 Simple Mask 6 05/23/19 18:27 97.8 107 12 165/84 98 Simple Mask 6 05/23/19 16:00 97.8 92 22 149/84 (105) 100 05/23/19 12:00 97.6 83 20 153/74 (100) 98 05/23/19 09:00 Room Air Intake and Output 05/23/19 05/24/19 19:00 07:00 Intake Total 1400 ml 100 ml Output Total 70 ml 1250 ml Balance 1330 ml -1150 ml Intake IV Total 1300 ml 100 ml Other 100 ml Output Urine Total 50 ml 1250 ml Estimated Blood Loss 20 ml # Voids 2 Laboratory Tests 05/23/19 15:35: Arterial Blood pH 7.411, Arterial Blood Partial Pressure CO2 26.3L, Arterial Blood Partial Pressure O2 81.2, Arterial Blood HCO3 16.3*L, Arterial Blood Oxygen Saturation 95.2, Arterial Blood Base Excess -6.5L, John Test Positive 05/23/19 15:40: White Blood Count 7.3, Red Blood Count 3.95L, Hemoglobin 14.6, Hematocrit 40.5, Mean Corpuscular Volume 103H, Mean Corpuscular Hemoglobin 36.9H, Mean Corpuscular Hemoglobin Concent 36.1H, Red Cell Distribution Width 11.3L, Platelet Count 300, Mean Platelet Volume 5.3L, Neutrophils (%) (Auto) 84.3H, Lymphocytes (%) (Auto) 6.8L, Monocytes (%) (Auto) 7.4, Eosinophils (%) (Auto) 0.1, Basophils (%) (Auto) 1.3, Sodium Level 134L, Potassium Level 3.7, Chloride Level 95L, Carbon Dioxide Level 20L, Anion Gap 20H, Blood Urea Nitrogen 20H, Creatinine 1.2, Estimat Glomerular Filtration Rate , Glucose Level 81, Calcium Level 10.2H, Ammonia < 10L 05/24/19 05:50: White Blood Count 8.4, Red Blood Count 3.74L, Hemoglobin 13.8, Hematocrit 39.8, Mean Corpuscular Volume 106H, Mean Corpuscular Hemoglobin 37.0H, Mean Corpuscular Hemoglobin Concent 34.8, Red Cell Distribution Width 12.3, Platelet Count 274, Mean Platelet Volume 5.3L, Neutrophils (%) (Auto) , Lymphocytes (%) ( Auto) , Monocytes (%) (Auto) , Eosinophils (%) (Auto) , Basophils (%) (Auto) , Sodium Level 135L, Potassium Level 3.9, Chloride Level 101, Carbon Dioxide Level 25, Anion Gap 10, Blood Urea Nitrogen 20H, Creatinine 1.5H, Estimat Glomerular Filtration Rate , Glucose Level 188#H, Calcium Level 8.9, Phosphorus Level 2.9, Magnesium Level 1.4L Height (Feet): 5 Height (Inches): 7.00 Weight (Pounds): 121 Objective WDWN NAD clear breath sounds bilaterally without rhonchi or wheeze [id number] without MRG tender abdomen no CCE nonfocal Gagandeep Li MD May 24, 2019 08:48
--- NOTE | 2019-05-24 08:53 | Nephrology Progress Note ---
Assessment/Plan Assessment/Plan: A/P 1) YANELI- Cr up to 1.5 post op. Continue IVFs 2) Hyponatremia- Na up to 135 and stable - labs c/w SIADH. Urine OSM 512 and low UA and serum OSM 3) SBO- high grade SBO, s/p ex lap, OSMAR, and SB resection 4) Hypokalemia- being replaced prn Subjective Date patient seen: May 24, 2019 Time patient seen: 08:51 ROS Limited/Unobtainable: No Allergies: Coded Allergies: IODINE (Verified Allergy, Unknown, 05/18/19) Subjective Patient with NG in place. Post op day #1. Objective Last 24 Hour Vital Signs Date Time Temp Pulse Resp B/P (MAP) Pulse Ox O2 Delivery O2 Flow Rate FiO2 05/24/19 08:00 97.7 93 20 146/73 (97) 100 05/24/19 07:04 100 20 99 05/24/19 04:00 98.9 100 20 147/76 (99) 99 05/24/19 00:00 99.4 83 16 149/88 (108) 97 05/23/19 21:00 Room Air 05/23/19 19:23 98.0 96 17 154/81 99 Nasal Cannula 3 05/23/19 19:10 96 19 156/83 99 Nasal Cannula 3 05/23/19 18:55 95 19 162/82 100 Simple Mask 6 05/23/19 18:45 95 15 161/81 99 Simple Mask 6 05/23/19 18:44 94 14 99 05/23/19 18:37 98 20 176/80 99 Simple Mask 6 05/23/19 18:32 95 21 166/82 99 Simple Mask 6 05/23/19 18:27 97.8 107 12 165/84 98 Simple Mask 6 05/23/19 16:00 97.8 92 22 149/84 (105) 100 05/23/19 12:00 97.6 83 20 153/74 (100) 98 05/23/19 09:00 Room Air Intake and Output 05/23/19 05/24/19 19:00 07:00 Intake Total 1400 ml 100 ml Output Total 70 ml 1250 ml Balance 1330 ml -1150 ml Intake IV Total 1300 ml 100 ml Other 100 ml Output Urine Total 50 ml 1250 ml Estimated Blood Loss 20 ml # Voids 2 Laboratory Tests 05/23/19 15:35: Arterial Blood pH 7.411, Arterial Blood Partial Pressure CO2 26.3L, Arterial Blood Partial Pressure O2 81.2, Arterial Blood HCO3 16.3*L, Arterial Blood Oxygen Saturation 95.2, Arterial Blood Base Excess -6.5L, John Test Positive 05/23/19 15:40: White Blood Count 7.3, Red Blood Count 3.95L, Hemoglobin 14.6, Hematocrit 40.5, Mean Corpuscular Volume 103H, Mean Corpuscular Hemoglobin 36.9H, Mean Corpuscular Hemoglobin Concent 36.1H, Red Cell Distribution Width 11.3L, Platelet Count 300, Mean Platelet Volume 5.3L, Neutrophils (%) (Auto) 84.3H, Lymphocytes (%) (Auto) 6.8L, Monocytes (%) (Auto) 7.4, Eosinophils (%) (Auto) 0.1, Basophils (%) (Auto) 1.3, Sodium Level 134L, Potassium Level 3.7, Chloride Level 95L, Carbon Dioxide Level 20L, Anion Gap 20H, Blood Urea Nitrogen 20H, Creatinine 1.2, Estimat Glomerular Filtration Rate , Glucose Level 81, Calcium Level 10.2H, Ammonia < 10L 05/24/19 05:50: White Blood Count 8.4, Red Blood Count 3.74L, Hemoglobin 13.8, Hematocrit 39.8, Mean Corpuscular Volume 106H, Mean Corpuscular Hemoglobin 37.0H, Mean Corpuscular Hemoglobin Concent 34.8, Red Cell Distribution Width 12.3, Platelet Count 274, Mean Platelet Volume 5.3L, Neutrophils (%) (Auto) , Lymphocytes (%) ( Auto) , Monocytes (%) (Auto) , Eosinophils (%) (Auto) , Basophils (%) (Auto) , Sodium Level 135L, Potassium Level 3.9, Chloride Level 101, Carbon Dioxide Level 25, Anion Gap 10, Blood Urea Nitrogen 20H, Creatinine 1.5H, Estimat Glomerular Filtration Rate , Glucose Level 188#H, Calcium Level 8.9, Phosphorus Level 2.9, Magnesium Level 1.4L Height (Feet): 5 Height (Inches): 7.00 Weight (Pounds): 121 General Appearance: no apparent distress EENT: normal ENT inspection Neck: normal alignment, supple Cardiovascular: normal rate, regular rhythm Respiratory/Chest: lungs clear, normal breath sounds Abdomen: soft, absent bowel sounds Edema: no edema noted Arm (L), no edema noted Arm (R), no edema noted Leg (L), no edema noted Leg (R), no edema noted Pedal (L), no edema noted Pedal (R), no edema noted Generalized Redd Hanson MD May 24, 2019 08:53
--- NOTE | 2019-05-24 09:25 | NUR ---
NURSE NOTES: NG tube removed by . No complain or pain or discomfort. Patient tolerated procedure well. Will continue to monitor.
--- NOTE | 2019-05-24 10:46 | NUR ---
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 S/P EX LAP,OSMAR AND SB RESECTION VS: BP 149/88, P 100, T 97.7, RR 20, SpO2 97 RBC 3.74, BUN 20, CR 1.5 IS:HEPARIN SUBQ ZOSYN 110ml IVPB D5/ ELECTROLYTES Plan: d/c NG tube Ambulate Incentive Spirometry POST OP CARE IV HYDRATION MED/SURG STATUS
--- NOTE | 2019-05-24 11:36 | General Progress Note ---
Progress Note Progress Note surgery afebrile, HD stable, doing okay labs noted no ng tube output d/c ng tube ambulate and out of bed incentive spirometry rx as written Javier Urbina May 24, 2019 11:36
[2019-05-24 12:00] VITALS: BP 132/76
--- NOTE | 2019-05-24 14:17 | NUR ---
RD ASSESSMENT & RECOMMENDATIONS SEE CARE ACTIVITY FOR COMPLETE ASSESSMENT DAILY ESTIMATED NEEDS: Needs based on Surgery/ 55kg 25-35 kcals/kg 7620-9873 total kcals 1-2 g protein/kg 55-110 g total protein 25-30 mL/kg 8439-7920 total fluid mLs NUTRITION DIAGNOSIS: Altered GI function R/T high grade SBO as evidenced by s/p ex lap, lysis of adhesions, small bowel resection, pt is NPO at this time. CURRENT DIET:NPO PO DIET RECOMMENDATIONS: DIET PER SURGEON ADDITIONAL RECOMMENDATIONS: * Monitor NPO status, ability for oral diet -> NPO DAY 5, POD #1 * CONSULT RD FOR TPN REC IF MEDICALLY INDICATED AND UNABLE TO START PO IN THE NEXT 2-3 DAYS * Monitor lytes, replete as needed (low mag) * Calibrated bedscale wt for accurate CBW
[2019-05-24 16:00] VITALS: BP 137/76
--- NOTE | 2019-05-24 19:30 | NUR ---
HAND-OFF: Report given to Brant RN. Patient in stable condition.
[2019-05-24 20:00] VITALS: BP 134/72
--- NOTE | 2019-05-24 20:10 | NUR ---
NURSE NOTES: Pt is in bed, awake and verbal. Vitals stable. No acute distress noted. Dressing dry and intact. Donaldson cath anchored in place. Pt reminded not to pull on the tubings. Pt instructed to call for assistance before getting out of bed. Bed alarm on, bed locked low in position, side rails up and call light within reach. Pt will be monitored.
--- NOTE | 2019-05-24 20:25 | NUR ---
NURSE NOTES: Yellow necklace and Yellow watch given to son. Patient using partial denture.
[2019-05-25] VITALS: BP 129/76
[2019-05-25] MEDS: D5 1/2NS w/KCl 20mEq 1,000 ML IV SCH ×3 (02:43→22:00)
[2019-05-25 04:00] VITALS: BP 158/90
--- NOTE | 2019-05-25 04:13 | NUR ---
NURSE NOTES: Pt is in bed, asleep. No acute distress noted. Dressing dry and intact. Donaldson draining, alexia color urine.
--- NOTE | 2019-05-25 04:16 | NUR ---
NURSE NOTES: Pt is NPO. D5 1/2NS with 20mEq Kcl running at 100ml/hr.
[2019-05-25] MEDS: Piperacillin/Tazobactam 3.375 GM in NS 110 ML IVPB SCH ×2 (06:08→14:08)
[2019-05-25 06:52] LABS: BASOPHILS % (AUTO) 0.9 % (0.0-2.0); EOSINOPHILS % (AUTO) 2.3 % (0.0-3.0); HEMATOCRIT 31.7 % (37.0-47.0); HEMOGLOBIN 11.1 G/DL (12.0-16.0); LYMPHOCYTES % (AUTO) 8.6 % (20.0-45.0); MEAN CORPUSCULAR VOLUME 107 FL (80-99); MONOCYTES % (AUTO) 8.6 % (1.0-10.0); NEUTROPHILS % (AUTO) 79.6 % (45.0-75.0); PLATELET COUNT 249 K/UL (150-450); RED BLOOD COUNT 2.97 M/UL (4.20-5.40); RED CELL DISTRIBUTION WIDTH 12.5 % (11.6-14.8); WHITE BLOOD COUNT 6.8 K/UL (4.8-10.8)
--- NOTE | 2019-05-25 07:01 | General Progress Note ---
Assessment/Plan Assessment/Plan: Assessment - high grade SBO, s/p ex lap, OSMAR, and SB resection Recommendations - NPO - IVF - OOB - post op care - follow labs Subjective Allergies: Coded Allergies: IODINE (Verified Allergy, Unknown, 05/18/19) Subjective above noted POD #2, s/p OSMAR and SB resection No flatus yet Objective Last 24 Hour Vital Signs Date Time Temp Pulse Resp B/P (MAP) Pulse Ox O2 Delivery O2 Flow Rate FiO2 05/25/19 04:00 98.0 101 19 158/90 (112) 97 05/25/19 00:00 98.1 85 17 129/76 (93) 97 05/24/19 21:00 Nasal Cannula 2.0 05/24/19 20:00 98.1 92 16 134/72 (92) 97 05/24/19 16:00 98.3 91 20 137/76 (96) 99 05/24/19 12:00 98.0 97 18 132/76 (94) 98 05/24/19 09:00 Nasal Cannula 2.0 05/24/19 08:00 97.7 93 20 146/73 (97) 100 05/24/19 07:04 100 20 99 Intake and Output 05/24/19 05/25/19 19:00 07:00 Intake Total 100 ml 910.0 ml Output Total 250 ml 400 ml Balance -150 ml 510.0 ml Intake IV Total 100 ml 910.0 ml Output Urine Total 250 ml 400 ml # Voids 1 Laboratory Tests 05/25/19 06:06: White Blood Count 6.8, Red Blood Count 2.97L, Hemoglobin 11.1L, Hematocrit 31.7L , Mean Corpuscular Volume 107H, Mean Corpuscular Hemoglobin 37.4H, Mean Corpuscular Hemoglobin Concent 35.0, Red Cell Distribution Width 12.5, Platelet Count 249, Mean Platelet Volume 6.2L, Neutrophils (%) (Auto) 79.6H, Lymphocytes (%) (Auto) 8.6L, Monocytes (%) (Auto) 8.6, Eosinophils (%) (Auto) 2.3, Basophils (%) (Auto) 0.9, Sodium Level [Pending], Potassium Level [Pending], Chloride Level [Pending], Carbon Dioxide Level [Pending], Blood Urea Nitrogen [ Pending], Creatinine [Pending], Estimat Glomerular Filtration Rate [Pending], Glucose Level [Pending], Calcium Level [Pending], Total Bilirubin [Pending], Aspartate Amino Transf (AST/SGOT) [Pending], Alanine Aminotransferase (ALT/SGPT ) [Pending], Alkaline Phosphatase [Pending], Total Protein [Pending], Albumin [ Pending], Globulin [Pending] Height (Feet): 5 Height (Inches): 7.00 Weight (Pounds): 121 Objective WDWN AA woman NCAT, (+) NGT supple CTA RRR abd soft ND, (+) midline incision and dressing ext: no edema Neuo: non focal Xander Tavarez MD May 25, 2019 07:01
[2019-05-25 07:13] LABS: ALANINE AMINOTRANSFERASE < 6 U/L (12-78); ALBUMIN 2.7 G/DL (3.4-5.0); ALBUMIN/GLOBULIN RATIO 0.8 (1.0-2.7); ALKALINE PHOSPHATASE 48 U/L (46-116); ANION GAP 9 mmol/L (5-15); ASPARTATE AMINO TRANSFERASE 18 U/L (15-37); BILIRUBIN,TOTAL 1.1 MG/DL (0.2-1.0); BLOOD UREA NITROGEN 17 mg/dL (7-18); CALCIUM 8.9 MG/DL (8.5-10.1); CARBON DIOXIDE 23 MMOL/L (21-32); CHLORIDE 106 MMOL/L (98-107); CREATININE 1.1 MG/DL (0.55-1.30); POTASSIUM 3.9 MMOL/L (3.5-5.1); SODIUM 137 MMOL/L (136-145)
[2019-05-25 07:27] LABS: BILIRUBIN,DIRECT 0.2 MG/DL (0.0-0.3)
--- NOTE | 2019-05-25 07:30 | NUR ---
HAND-OFF: Report given to CHICHI Nina.
[2019-05-25 08:00] VITALS: BP 120/79
--- NOTE | 2019-05-25 08:00 | NUR ---
NURSE NOTES: Received report from Brant RN. Patient is asleep during rounds, no acute distress noted, dressing clean, dry, intact. IVF running per order, antibiotics running per order. Donaldson catheter to gravity drainage, draining clear, yellow urine. Fall precautions maintained, side rails upx3, bed low and locked, call light in reach, bed alarm armed. Will continue to monitor.
--- NOTE | 2019-05-25 08:30 | Nephrology Progress Note ---
Assessment/Plan Assessment/Plan: A/P 1) YANELI- resolved 2) Hyponatremia- resolved - labs c/w SIADH. Urine OSM 512 and low UA and serum OSM 3) SBO- high grade SBO, s/p ex lap, OSMAR, and SB resection. per gen surgery. NG out 4) Hypokalemia- being replaced prn Subjective Date patient seen: May 25, 2019 Time patient seen: 08:29 ROS Limited/Unobtainable: No Allergies: Coded Allergies: IODINE (Verified Allergy, Unknown, 05/18/19) Subjective Patient out NG in place. Post op day #2. Objective Last 24 Hour Vital Signs Date Time Temp Pulse Resp B/P (MAP) Pulse Ox O2 Delivery O2 Flow Rate FiO2 05/25/19 04:00 98.0 101 19 158/90 (112) 97 05/25/19 00:00 98.1 85 17 129/76 (93) 97 05/24/19 21:00 Nasal Cannula 2.0 05/24/19 20:00 98.1 92 16 134/72 (92) 97 05/24/19 16:00 98.3 91 20 137/76 (96) 99 05/24/19 12:00 98.0 97 18 132/76 (94) 98 05/24/19 09:00 Nasal Cannula 2.0 Intake and Output 05/24/19 05/25/19 19:00 07:00 Intake Total 100 ml 1310.0 ml Output Total 250 ml 400 ml Balance -150 ml 910.0 ml Intake IV Total 100 ml 1310.0 ml Output Urine Total 250 ml 400 ml # Voids 1 Laboratory Tests 05/25/19 06:06: White Blood Count 6.8, Red Blood Count 2.97L, Hemoglobin 11.1L, Hematocrit 31.7L , Mean Corpuscular Volume 107H, Mean Corpuscular Hemoglobin 37.4H, Mean Corpuscular Hemoglobin Concent 35.0, Red Cell Distribution Width 12.5, Platelet Count 249, Mean Platelet Volume 6.2L, Neutrophils (%) (Auto) 79.6H, Lymphocytes (%) (Auto) 8.6L, Monocytes (%) (Auto) 8.6, Eosinophils (%) (Auto) 2.3, Basophils (%) (Auto) 0.9, Sodium Level 137, Potassium Level 3.9, Chloride Level 106, Carbon Dioxide Level 23, Anion Gap 9, Blood Urea Nitrogen 17, Creatinine 1.1, Estimat Glomerular Filtration Rate , Glucose Level 134H, Calcium Level 8.9 , Total Bilirubin 1.1H, Direct Bilirubin 0.2, Aspartate Amino Transf (AST/SGOT) 18, Alanine Aminotransferase (ALT/SGPT) < 6L, Alkaline Phosphatase 48, Total Protein 6.0L, Albumin 2.7L, Globulin 3.3, Albumin/Globulin Ratio 0.8L Height (Feet): 5 Height (Inches): 7.00 Weight (Pounds): 121 General Appearance: no apparent distress EENT: normal ENT inspection Neck: normal alignment, supple Cardiovascular: normal rate, regular rhythm Respiratory/Chest: lungs clear, normal breath sounds Abdomen: non tender, soft Edema: no edema noted Arm (L), no edema noted Arm (R), no edema noted Leg (L), no edema noted Leg (R), no edema noted Pedal (L), no edema noted Pedal (R), no edema noted Generalized Redd Hanson MD May 25, 2019 08:30
[2019-05-25] MEDS: Pantoprazole Inj IVP SCH (09:53)
[2019-05-25] MEDS: Heparin 5000 units/ml inj SUBQ SCH ×2 (09:53→22:01)
--- NOTE | 2019-05-25 09:54 | General Progress Note ---
Assessment/Plan Assessment/Plan: IMPRESSION small bowel obstruction abdominal pain colon ca UTI hyponatremia post op lysis of adhesions and small bowel resection PLAN NPO postop care pain control GI and GS renal noted IV hydration impression, plan, and exam edited and reviewed in detail care discussed with RN Subjective Allergies: Coded Allergies: IODINE (Verified Allergy, Unknown, 05/18/19) Subjective care noted and reviewed post op still NPO Objective Last 24 Hour Vital Signs Date Time Temp Pulse Resp B/P (MAP) Pulse Ox O2 Delivery O2 Flow Rate FiO2 05/25/19 08:00 98.0 83 18 120/79 (93) 100 05/25/19 04:00 98.0 101 19 158/90 (112) 97 05/25/19 00:00 98.1 85 17 129/76 (93) 97 05/24/19 21:00 Nasal Cannula 2.0 05/24/19 20:00 98.1 92 16 134/72 (92) 97 05/24/19 16:00 98.3 91 20 137/76 (96) 99 05/24/19 12:00 98.0 97 18 132/76 (94) 98 Intake and Output 05/24/19 05/25/19 19:00 07:00 Intake Total 100 ml 1310.0 ml Output Total 250 ml 400 ml Balance -150 ml 910.0 ml Intake IV Total 100 ml 1310.0 ml Output Urine Total 250 ml 400 ml # Voids 1 Laboratory Tests 05/25/19 06:06: White Blood Count 6.8, Red Blood Count 2.97L, Hemoglobin 11.1L, Hematocrit 31.7L , Mean Corpuscular Volume 107H, Mean Corpuscular Hemoglobin 37.4H, Mean Corpuscular Hemoglobin Concent 35.0, Red Cell Distribution Width 12.5, Platelet Count 249, Mean Platelet Volume 6.2L, Neutrophils (%) (Auto) 79.6H, Lymphocytes (%) (Auto) 8.6L, Monocytes (%) (Auto) 8.6, Eosinophils (%) (Auto) 2.3, Basophils (%) (Auto) 0.9, Sodium Level 137, Potassium Level 3.9, Chloride Level 106, Carbon Dioxide Level 23, Anion Gap 9, Blood Urea Nitrogen 17, Creatinine 1.1, Estimat Glomerular Filtration Rate , Glucose Level 134H, Calcium Level 8.9 , Total Bilirubin 1.1H, Direct Bilirubin 0.2, Aspartate Amino Transf (AST/SGOT) 18, Alanine Aminotransferase (ALT/SGPT) < 6L, Alkaline Phosphatase 48, Total Protein 6.0L, Albumin 2.7L, Globulin 3.3, Albumin/Globulin Ratio 0.8L Height (Feet): 5 Height (Inches): 7.00 Weight (Pounds): 121 Objective WDWN NAD clear breath sounds bilaterally without rhonchi or wheeze [id number] without MRG tender abdomen no CCE nonfocal Gagandeep Li MD May 25, 2019 09:54
--- NOTE | 2019-05-25 11:27 | Infectious Diseases Prog Note ---
"Assessment/Plan Assessment/Plan antibiotics : zosyn A 1. klebsiella UTI s/p rx 2. SBO s/p resection | lysis of adhesions 3. colon cancer 4. renal failure resolved P 1. d/c zosyn 2. observe off antibiotics Subjective Constitutional: Denies: fever, chills Respiratory: Denies: shortness of breath, dry cough Gastrointestinal/Abdominal: Denies: nausea, vomiting, diarrhea Musculoskeletal: Denies: pain Allergies: Coded Allergies: IODINE (Verified Allergy, Unknown, 05/18/19) Objective Vital Signs Last 24 Hour Vital Signs Date Time Temp Pulse Resp B/P (MAP) Pulse Ox O2 Delivery O2 Flow Rate FiO2 05/25/19 08:00 98.0 83 18 120/79 (93) 100 05/25/19 04:00 98.0 101 19 158/90 (112) 97 05/25/19 00:00 98.1 85 17 129/76 (93) 97 05/24/19 21:00 Nasal Cannula 2.0 05/24/19 20:00 98.1 92 16 134/72 (92) 97 05/24/19 16:00 98.3 91 20 137/76 (96) 99 05/24/19 12:00 98.0 97 18 132/76 (94) 98 Height (Feet): 5 Height (Inches): 7.00 Weight (Pounds): 121 Respiratory/Chest: lungs clear Cardiovascular: normal rate, regular rhythm, no gallop/murmur Abdomen: soft, non tender, other - in dressings Extremities: no edema Microbiology Date/Time Source Procedure Growth Status 05/23/19 15:40 Blood Blood Culture - Preliminary NO GROWTH AFTER 24 HOURS Resulted 05/23/19 15:25 Blood Blood Culture - Preliminary NO GROWTH AFTER 24 HOURS Resulted 05/23/19 20:20 Straight Cath Urine Culture - Preliminary NO GROWTH AFTER 24 HOURS Resulted Laboratory Tests Test 05/25/19 06:06 White Blood Count 6.8 K/UL (4.8-10.8) Red Blood Count 2.97 M/UL (4.20-5.40) L Hemoglobin 11.1 G/DL (12.0-16.0) L Hematocrit 31.7 % (37.0-47.0) L Mean Corpuscular Volume 107 FL (80-99) H Mean Corpuscular Hemoglobin 37.4 PG (27.0-31.0) H Mean Corpuscular Hemoglobin Concent 35.0 G/DL (32.0-36.0) Red Cell Distribution Width 12.5 % (11.6-14.8) Platelet Count 249 K/UL (150-450) Mean Platelet Volume 6.2 FL (6.5-10.1) L Neutrophils (%) (Auto) 79.6 % (45.0-75.0) H Lymphocytes (%) (Auto) 8.6 % (20.0-45.0) L Monocytes (%) (Auto) 8.6 % (1.0-10.0) Eosinophils (%) (Auto) 2.3 % (0.0-3.0) Basophils (%) (Auto) 0.9 % (0.0-2.0) Sodium Level 137 MMOL/L (136-145) Potassium Level 3.9 MMOL/L (3.5-5.1) Chloride Level 106 MMOL/L (98-107) Carbon Dioxide Level 23 MMOL/L (21-32) Anion Gap 9 mmol/L (5-15) Blood Urea Nitrogen 17 mg/dL (7-18) Creatinine 1.1 MG/DL (0.55-1.30) Estimat Glomerular Filtration Rate mL/min (>60) Glucose Level 134 MG/DL (74-106) H Calcium Level 8.9 MG/DL (8.5-10.1) Total Bilirubin 1.1 MG/DL (0.2-1.0) H Direct Bilirubin 0.2 MG/DL (0.0-0.3) Aspartate Amino Transf (AST/SGOT) 18 U/L (15-37) Alanine Aminotransferase (ALT/SGPT) < 6 U/L (12-78) L Alkaline Phosphatase 48 U/L (46-116) Total Protein 6.0 G/DL (6.4-8.2) L Albumin 2.7 G/DL (3.4-5.0) L Globulin 3.3 g/dL Albumin/Globulin Ratio 0.8 (1.0-2.7) L Current Medications Medications (Trade) Dose Ordered Sig/Willian Route PRN Reason Start Time Stop Time Status Last Admin Dose Admin Acetaminophen (Tylenol) 650 mg Q4H PRN ORAL FEVER 05/23/19 18:46 06/22/19 18:45 Al Hydroxide/Mg Hydroxide (Mylanta) 15 ml Q6H PRN ORAL DYSPEPSIA 05/23/19 18:46 06/22/19 18:45 Dextrose/ Electrolytes 1,000 ml @ 100 mls/hr Q10H IV 05/23/19 20:00 06/22/19 19:59 05/25/19 02:43 Diphenhydramine HCl (Benadryl) 12.5 mg Q6H PRN IVP Itching/Pruritis 05/23/19 18:30 06/22/19 18:29 Heparin Sodium (Porcine) (Heparin 5000 units/ml) 5,000 units EVERY 12 HOURS SUBQ 05/24/19 09:00 06/23/19 08:59 05/25/19 09:53 Lorazepam (Ativan 2mg/ml 1ml) 1 mg Q3H PRN IV For Anxiety 05/21/19 13:30 05/28/19 13:29 Metoclopramide HCl (Reglan) 10 mg Q6H PRN IVP Nausea & Vomiting 05/23/19 18:30 06/22/19 18:29 Morphine Sulfate (Morphine Sulfate) 1 mg Q4H PRN IVP pain scale 1-3 05/23/19 18:30 05/30/19 18:29 Morphine Sulfate (Morphine Sulfate) 2 mg Q4H PRN IVP pain scale 4-6 05/23/19 18:30 05/30/19 18:29 Morphine Sulfate (Morphine Sulfate) 4 mg Q4H PRN IVP pain score 7-10 05/23/19 18:30 05/30/19 18:29 05/23/19 20:29 Ondansetron HCl (Zofran) 4 mg Q6H PRN IVP Nausea & Vomiting 05/19/19 05:15 06/18/19 05:14 05/23/19 15:05 Pantoprazole (Protonix) 40 mg DAILY IVP 05/25/19 09:00 06/24/19 08:59 05/25/19 09:53 Piperacillin Sod/ Tazobactam Sod 3.375 gm/Sodium Chloride 110 ml @ 27.5 mls/hr EVERY 8 HOURS IVPB 05/23/19 22:00 05/28/19 21:59 05/25/19 06:08 Bandar Miguel MD May 25, 2019 11:27"
[2019-05-25 12:00] VITALS: BP 152/86
--- NOTE | 2019-05-25 13:22 | General Progress Note ---
Progress Note Progress Note pod #2 recovering afebrile, HD Stable labs okay no flatus yet pain okay ambulate and out of bed d/c garcia cont rx await return of bowel function Javier Urbina May 25, 2019 13:22
--- NOTE | 2019-05-25 13:41 | NUR ---
*-* INSURANCE *-* UPDATED CLINICALS AND REVIEW HAVE BEEN FAXED TO: [employer] PLEASE FAX THE REVIEW AND CLINICAL TO FX: [phone] PH: [phone]
--- NOTE | 2019-05-25 14:16 | NUR ---
NURSE NOTES: Donaldson catheter removed per MD order. Patient educated to inform RN when she voids. Will continue to monitor.
[2019-05-25 16:00] VITALS: BP 146/76
--- NOTE | 2019-05-25 17:37 | NUR ---
NURSE NOTES: Patient had episode of incontinence x1, clear, yellow urine noted on chux pad.
--- NOTE | 2019-05-25 19:24 | NUR ---
HAND-OFF: Report given to Yaquelin CADET. Patient is in stable condition.
[2019-05-25] MEDS ORDERED: Tubing IV Secondary IV ONE (19:27)
[2019-05-25] MEDS ORDERED: NS 275ml ONE (19:27)
--- NOTE | 2019-05-25 19:30 | NUR ---
NURSE NOTES: Received report & pt from CHICHI Nina. Pt lying in bed, a&ox2, in room air, family member at bedside. No s/s of acute distress & no c/o pain at this time. Surgical dressing C/D/I. IV site intact with IVF running as ordered. Bed in lowest position, call light within reach. Will continue to monitor.
[2019-05-25 20:00] VITALS: BP 136/72
[2019-05-26] VITALS: BP 137/81
[2019-05-26 04:59] VITALS: BP 140/85
[2019-05-26 07:00] LABS: BASOPHILS % (AUTO) 1.1 % (0.0-2.0); EOSINOPHILS % (AUTO) 4.1 % (0.0-3.0); HEMATOCRIT 31.2 % (37.0-47.0); HEMOGLOBIN 10.6 G/DL (12.0-16.0); LYMPHOCYTES % (AUTO) 16.8 % (20.0-45.0); MEAN CORPUSCULAR VOLUME 107 FL (80-99); MONOCYTES % (AUTO) 9.9 % (1.0-10.0); NEUTROPHILS % (AUTO) 68.1 % (45.0-75.0); PLATELET COUNT 256 K/UL (150-450); RED BLOOD COUNT 2.92 M/UL (4.20-5.40); RED CELL DISTRIBUTION WIDTH 12.4 % (11.6-14.8); WHITE BLOOD COUNT 5.2 K/UL (4.8-10.8)
[2019-05-26 07:30] LABS: ALANINE AMINOTRANSFERASE 7 U/L (12-78); ALBUMIN 2.6 G/DL (3.4-5.0); ALBUMIN/GLOBULIN RATIO 0.8 (1.0-2.7); ALKALINE PHOSPHATASE 45 U/L (46-116); ANION GAP 7 mmol/L (5-15); ASPARTATE AMINO TRANSFERASE 15 U/L (15-37); BILIRUBIN,TOTAL 0.9 MG/DL (0.2-1.0); BLOOD UREA NITROGEN 10 mg/dL (7-18); CALCIUM 8.6 MG/DL (8.5-10.1); CARBON DIOXIDE 22 MMOL/L (21-32); CHLORIDE 104 MMOL/L (98-107); CREATININE 0.9 MG/DL (0.55-1.30); POTASSIUM 3.4 MMOL/L (3.5-5.1); SODIUM 133 MMOL/L (136-145)
--- NOTE | 2019-05-26 07:30 | NUR ---
HAND-OFF: Report given to CHICHI Nina. Rounds done. Pt in stable condition.
[2019-05-26 08:00] VITALS: BP 140/76
--- NOTE | 2019-05-26 08:00 | NUR ---
NURSE NOTES: Received report from Yaquelin CADET. Patient is asleep during rounds, no acute distress noted, IVF running per order. Fall precautions maintained. Side rails upx3, bed low and locked, call light in reach. Will continue to monitor.
--- NOTE | 2019-05-26 08:21 | General Progress Note ---
Assessment/Plan Assessment/Plan: Assessment - high grade SBO, s/p ex lap, OSMAR, and SB resection Recommendations - NPO - IVF - OOB - post op care - follow labs Subjective Allergies: Coded Allergies: IODINE (Verified Allergy, Unknown, 05/18/19) Subjective above noted POD #3, s/p OSMAR and SB resection No flatus yet Objective Last 24 Hour Vital Signs Date Time Temp Pulse Resp B/P (MAP) Pulse Ox O2 Delivery O2 Flow Rate FiO2 05/26/19 04:59 98.2 74 20 140/85 (103) 96 05/26/19 00:00 98.4 81 18 137/81 (99) 98 05/25/19 21:00 Room Air 05/25/19 20:00 98.0 96 20 136/72 (93) 94 05/25/19 16:00 98.8 89 18 146/76 (99) 95 05/25/19 12:00 97.9 99 18 152/86 (108) 94 05/25/19 09:00 Room Air Intake and Output 05/25/19 05/26/19 19:00 07:00 Intake Total 1110.0 ml 1200 ml Output Total 350 ml Balance 760.0 ml 1200 ml Intake IV Total 1110.0 ml 1200 ml Output Urine Total 350 ml # Voids 1 3 Laboratory Tests 05/26/19 05:36: White Blood Count 5.2, Red Blood Count 2.92L, Hemoglobin 10.6L, Hematocrit 31.2L , Mean Corpuscular Volume 107H, Mean Corpuscular Hemoglobin 36.2H, Mean Corpuscular Hemoglobin Concent 34.0, Red Cell Distribution Width 12.4, Platelet Count 256, Mean Platelet Volume 5.5L, Neutrophils (%) (Auto) 68.1, Lymphocytes ( %) (Auto) 16.8L, Monocytes (%) (Auto) 9.9, Eosinophils (%) (Auto) 4.1H, Basophils (%) (Auto) 1.1, Sodium Level 133L, Potassium Level 3.4L, Chloride Level 104, Carbon Dioxide Level 22, Anion Gap 7, Blood Urea Nitrogen 10, Creatinine 0.9, Estimat Glomerular Filtration Rate , Glucose Level 104, Calcium Level 8.6, Total Bilirubin 0.9, Aspartate Amino Transf (AST/SGOT) 15, Alanine Aminotransferase (ALT/SGPT) 7L, Alkaline Phosphatase 45L, Total Protein 5.9L, Albumin 2.6L, Globulin 3.3, Albumin/Globulin Ratio 0.8L Height (Feet): 5 Height (Inches): 7.00 Weight (Pounds): 121 Objective WDWN AA woman NCAT, (+) NGT supple CTA RRR abd soft ND, (+) midline incision and dressing ext: no edema Neuo: non focal Xander Tavarez MD May 26, 2019 08:21
--- NOTE | 2019-05-26 08:25 | General Progress Note ---
Assessment/Plan Assessment/Plan: IMPRESSION small bowel obstruction abdominal pain colon ca UTI hyponatremia post op lysis of adhesions and small bowel resection protein calorie malnutrition PLAN NPO postop care and monitoring pain control GI and GS renal noted- monitor lytes IV hydration while NPO impression, plan, and exam edited and reviewed in detail care discussed with RN Subjective Allergies: Coded Allergies: IODINE (Verified Allergy, Unknown, 05/18/19) Subjective care noted and reviewed post op still NPO per GI Objective Last 24 Hour Vital Signs Date Time Temp Pulse Resp B/P (MAP) Pulse Ox O2 Delivery O2 Flow Rate FiO2 05/26/19 04:59 98.2 74 20 140/85 (103) 96 05/26/19 00:00 98.4 81 18 137/81 (99) 98 05/25/19 21:00 Room Air 05/25/19 20:00 98.0 96 20 136/72 (93) 94 05/25/19 16:00 98.8 89 18 146/76 (99) 95 05/25/19 12:00 97.9 99 18 152/86 (108) 94 05/25/19 09:00 Room Air Intake and Output 05/25/19 05/26/19 19:00 07:00 Intake Total 1110.0 ml 1200 ml Output Total 350 ml Balance 760.0 ml 1200 ml Intake IV Total 1110.0 ml 1200 ml Output Urine Total 350 ml # Voids 1 3 Laboratory Tests 05/26/19 05:36: White Blood Count 5.2, Red Blood Count 2.92L, Hemoglobin 10.6L, Hematocrit 31.2L , Mean Corpuscular Volume 107H, Mean Corpuscular Hemoglobin 36.2H, Mean Corpuscular Hemoglobin Concent 34.0, Red Cell Distribution Width 12.4, Platelet Count 256, Mean Platelet Volume 5.5L, Neutrophils (%) (Auto) 68.1, Lymphocytes ( %) (Auto) 16.8L, Monocytes (%) (Auto) 9.9, Eosinophils (%) (Auto) 4.1H, Basophils (%) (Auto) 1.1, Sodium Level 133L, Potassium Level 3.4L, Chloride Level 104, Carbon Dioxide Level 22, Anion Gap 7, Blood Urea Nitrogen 10, Creatinine 0.9, Estimat Glomerular Filtration Rate , Glucose Level 104, Calcium Level 8.6, Total Bilirubin 0.9, Aspartate Amino Transf (AST/SGOT) 15, Alanine Aminotransferase (ALT/SGPT) 7L, Alkaline Phosphatase 45L, Total Protein 5.9L, Albumin 2.6L, Globulin 3.3, Albumin/Globulin Ratio 0.8L Height (Feet): 5 Height (Inches): 7.00 Weight (Pounds): 121 Objective WDWN NAD clear breath sounds bilaterally without rhonchi or wheeze [id number] without MRG tender abdomen no CCE nonfocal Gagandeep Li MD May 26, 2019 08:25
--- NOTE | 2019-05-26 08:32 | Nephrology Progress Note ---
Assessment/Plan Assessment/Plan: A/P 1) YANELI- resolved 2) Hyponatremia- resolved - labs c/w SIADH. Urine OSM 512 and low UA and serum OSM - prn IVFs 3) SBO- high grade SBO, s/p ex lap, OSMAR, and SB resection. per gen surgery. NG out 4) Hypokalemia- replace IV today Subjective Date patient seen: May 26, 2019 Time patient seen: 08:30 ROS Limited/Unobtainable: No Allergies: Coded Allergies: IODINE (Verified Allergy, Unknown, 05/18/19) Subjective Patient resting in no overt distress Objective Last 24 Hour Vital Signs Date Time Temp Pulse Resp B/P (MAP) Pulse Ox O2 Delivery O2 Flow Rate FiO2 05/26/19 04:59 98.2 74 20 140/85 (103) 96 05/26/19 00:00 98.4 81 18 137/81 (99) 98 05/25/19 21:00 Room Air 05/25/19 20:00 98.0 96 20 136/72 (93) 94 05/25/19 16:00 98.8 89 18 146/76 (99) 95 05/25/19 12:00 97.9 99 18 152/86 (108) 94 05/25/19 09:00 Room Air Intake and Output 05/25/19 05/26/19 19:00 07:00 Intake Total 1110.0 ml 1200 ml Output Total 350 ml Balance 760.0 ml 1200 ml Intake IV Total 1110.0 ml 1200 ml Output Urine Total 350 ml # Voids 1 3 Laboratory Tests 05/26/19 05:36: White Blood Count 5.2, Red Blood Count 2.92L, Hemoglobin 10.6L, Hematocrit 31.2L , Mean Corpuscular Volume 107H, Mean Corpuscular Hemoglobin 36.2H, Mean Corpuscular Hemoglobin Concent 34.0, Red Cell Distribution Width 12.4, Platelet Count 256, Mean Platelet Volume 5.5L, Neutrophils (%) (Auto) 68.1, Lymphocytes ( %) (Auto) 16.8L, Monocytes (%) (Auto) 9.9, Eosinophils (%) (Auto) 4.1H, Basophils (%) (Auto) 1.1, Sodium Level 133L, Potassium Level 3.4L, Chloride Level 104, Carbon Dioxide Level 22, Anion Gap 7, Blood Urea Nitrogen 10, Creatinine 0.9, Estimat Glomerular Filtration Rate , Glucose Level 104, Calcium Level 8.6, Total Bilirubin 0.9, Aspartate Amino Transf (AST/SGOT) 15, Alanine Aminotransferase (ALT/SGPT) 7L, Alkaline Phosphatase 45L, Total Protein 5.9L, Albumin 2.6L, Globulin 3.3, Albumin/Globulin Ratio 0.8L Height (Feet): 5 Height (Inches): 7.00 Weight (Pounds): 121 General Appearance: no apparent distress, alert EENT: normal ENT inspection Neck: normal alignment, supple Cardiovascular: normal rate, regular rhythm Respiratory/Chest: lungs clear, normal breath sounds Abdomen: non tender, soft Edema: no edema noted Arm (L), no edema noted Arm (R), no edema noted Leg (L), no edema noted Leg (R), no edema noted Pedal (L), no edema noted Pedal (R), no edema noted Generalized Redd Hanson MD May 26, 2019 08:32
[2019-05-26] MEDS: Heparin 5000 units/ml inj SUBQ SCH ×2 (09:25→21:06)
[2019-05-26] MEDS: Pantoprazole Inj IVP SCH (09:26)
--- NOTE | 2019-05-26 10:35 | General Progress Note ---
Progress Note Progress Note no acute events comfortable pain present but improving garcia out and voiding well wound c/d/i no flatus or BM yet is hungry ambulate and out of bed awaiting return of bowel function Javier Urbina May 26, 2019 10:35
[2019-05-26] MEDS: D5 1/2NS w/KCl 20mEq 1,000 ML IV SCH ×2 (10:43→18:50)
--- NOTE | 2019-05-26 11:38 | NUR ---
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 POD#3 NO FLATUS VS: BP 140/85, P 96, T 97.8, RR 20, SpO2 94 RBC 2.92, H&H 10.6/31.2, Na 133, K 3.4, ALT 7, ALP 45 IS:POTASSIUM CHLORIDE 100ml IVPB D5/ELECTROLYTES x1L IV PROTONIX 40mg IVP HEPARIN SUBQ 3E MED/SURG
--- NOTE | 2019-05-26 11:54 | Infectious Diseases Prog Note ---
Assessment/Plan Assessment/Plan IMPRESSION: 1. Klebsiella urinary tract infection, treated 2. small bowel obstruction. -s/p laparotomy, lysis of adhesions & bowel resection 3. Hyponatremia. 4. History of colon cancer. 5. Acute renal failure that is resolved. 6. Hypokalemia RECOMMENDATIONS: Observe off antibiotic Subjective ROS Limited/Unobtainable: No Constitutional: Reports: no symptoms Respiratory: Reports: no symptoms Gastrointestinal/Abdominal: Reports: no symptoms, other - NPO, feels hungry Genitourinary: Reports: no symptoms Allergies: Coded Allergies: IODINE (Verified Allergy, Unknown, 05/18/19) Objective Vital Signs Last 24 Hour Vital Signs Date Time Temp Pulse Resp B/P (MAP) Pulse Ox O2 Delivery O2 Flow Rate FiO2 05/26/19 09:00 Room Air 05/26/19 08:00 97.8 81 18 140/76 (97) 95 05/26/19 04:59 98.2 74 20 140/85 (103) 96 05/26/19 00:00 98.4 81 18 137/81 (99) 98 05/25/19 21:00 Room Air 05/25/19 20:00 98.0 96 20 136/72 (93) 94 05/25/19 16:00 98.8 89 18 146/76 (99) 95 05/25/19 12:00 97.9 99 18 152/86 (108) 94 Height (Feet): 5 Height (Inches): 7.00 Weight (Pounds): 121 General Appearance: no acute distress HEENT: mucous membranes moist Respiratory/Chest: lungs clear Cardiovascular: normal rate Abdomen: soft, non tender Extremities: no edema Neurologic/Psychiatric: alert, responsive Microbiology Date/Time Source Procedure Growth Status 05/23/19 15:40 Blood Blood Culture - Preliminary NO GROWTH AFTER 48 HOURS Resulted 05/23/19 15:25 Blood Blood Culture - Preliminary NO GROWTH AFTER 48 HOURS Resulted 05/23/19 20:20 Straight Cath Urine Culture - Final NO GROWTH AFTER 48 HOURS Complete Laboratory Tests Test 05/26/19 05:36 White Blood Count 5.2 K/UL (4.8-10.8) Red Blood Count 2.92 M/UL (4.20-5.40) L Hemoglobin 10.6 G/DL (12.0-16.0) L Hematocrit 31.2 % (37.0-47.0) L Mean Corpuscular Volume 107 FL (80-99) H Mean Corpuscular Hemoglobin 36.2 PG (27.0-31.0) H Mean Corpuscular Hemoglobin Concent 34.0 G/DL (32.0-36.0) Red Cell Distribution Width 12.4 % (11.6-14.8) Platelet Count 256 K/UL (150-450) Mean Platelet Volume 5.5 FL (6.5-10.1) L Neutrophils (%) (Auto) 68.1 % (45.0-75.0) Lymphocytes (%) (Auto) 16.8 % (20.0-45.0) L Monocytes (%) (Auto) 9.9 % (1.0-10.0) Eosinophils (%) (Auto) 4.1 % (0.0-3.0) H Basophils (%) (Auto) 1.1 % (0.0-2.0) Sodium Level 133 MMOL/L (136-145) L Potassium Level 3.4 MMOL/L (3.5-5.1) L Chloride Level 104 MMOL/L (98-107) Carbon Dioxide Level 22 MMOL/L (21-32) Anion Gap 7 mmol/L (5-15) Blood Urea Nitrogen 10 mg/dL (7-18) Creatinine 0.9 MG/DL (0.55-1.30) Estimat Glomerular Filtration Rate mL/min (>60) Glucose Level 104 MG/DL (74-106) Calcium Level 8.6 MG/DL (8.5-10.1) Total Bilirubin 0.9 MG/DL (0.2-1.0) Aspartate Amino Transf (AST/SGOT) 15 U/L (15-37) Alanine Aminotransferase (ALT/SGPT) 7 U/L (12-78) L Alkaline Phosphatase 45 U/L (46-116) L Total Protein 5.9 G/DL (6.4-8.2) L Albumin 2.6 G/DL (3.4-5.0) L Globulin 3.3 g/dL Albumin/Globulin Ratio 0.8 (1.0-2.7) L Current Medications Medications (Trade) Dose Ordered Sig/Willian Route PRN Reason Start Time Stop Time Status Last Admin Dose Admin Acetaminophen (Tylenol) 650 mg Q4H PRN ORAL FEVER 7/8/19 18:46 06/22/19 18:45 Al Hydroxide/Mg Hydroxide (Mylanta) 15 ml Q6H PRN ORAL DYSPEPSIA 05/23/19 18:46 06/22/19 18:45 Dextrose/ Electrolytes 1,000 ml @ 100 mls/hr Q10H IV 05/23/19 20:00 06/22/19 19:59 05/26/19 10:43 Diphenhydramine HCl (Benadryl) 12.5 mg Q6H PRN IVP Itching/Pruritis 05/23/19 18:30 06/22/19 18:29 Heparin Sodium (Porcine) (Heparin 5000 units/ml) 5,000 units EVERY 12 HOURS SUBQ 05/24/19 09:00 06/23/19 08:59 05/26/19 09:25 Lorazepam (Ativan 2mg/ml 1ml) 1 mg Q3H PRN IV For Anxiety 05/21/19 13:30 05/28/19 13:29 Metoclopramide HCl (Reglan) 10 mg Q6H PRN IVP Nausea & Vomiting 05/23/19 18:30 06/22/19 18:29 Morphine Sulfate (Morphine Sulfate) 1 mg Q4H PRN IVP pain scale 1-3 05/23/19 18:30 05/30/19 18:29 Morphine Sulfate (Morphine Sulfate) 2 mg Q4H PRN IVP pain scale 4-6 05/23/19 18:30 05/30/19 18:29 Morphine Sulfate (Morphine Sulfate) 4 mg Q4H PRN IVP pain score 7-10 05/23/19 18:30 05/30/19 18:29 05/23/19 20:29 Ondansetron HCl (Zofran) 4 mg Q6H PRN IVP Nausea & Vomiting 05/19/19 05:15 06/18/19 05:14 05/23/19 15:05 Pantoprazole (Protonix) 40 mg DAILY IVP 05/25/19 09:00 06/24/19 08:59 05/26/19 09:26 David Castellanos MD May 26, 2019 11:54
[2019-05-26 12:00] VITALS: BP 147/73
[2019-05-26 16:00] VITALS: BP 157/90
--- NOTE | 2019-05-26 16:18 | NUR ---
*-* INSURANCE *-* UPDATED CLINICALS AND REVIEW HAVE BEEN FAXED TO: [employer] PLEASE FAX THE REVIEW AND CLINICAL TO FX: [phone] PH: [phone]
--- NOTE | 2019-05-26 17:02 | NUR ---
P.T NOTE: LATE ENTRY 1135 P.T EVALUATION COMPLETED AND TREATMENT INITIATED. PLEASE REFER TO P.T EVALUATION FOR CURRENT FUNCTIONAL STATUS. PATIENT IS ALERT, ORIENT TO SELF/PERSON , PLACE BUT NOT TO TIME. PATIENT IS SOMEWHAT CONFUSED HOWEVER FOLLOWS SIMPLE COMMANDS. PATIENT REPORTED PAIN IN THE ABDOMINAL AREA AGGRAVATED BY MOVEMENT INITIATION ESPECIALLY WITH MOVEMENT TRANSITION OR GETTING IN AND OUT OF BED RATED 8/10. PATIENT CURRENTLY REQUIRE MOD A X 1 FOR BED MOBILITIES AND MIN A X 1 FOR TRANSFER MOBILITY. PATIENT WAS ABLE TO AMBULATE 50 FEET USING THE FWW WITH MIN A X 1 . OVERALL FAIR ACTIVITY TOLERANCE. SKILLED P.T SERVICE IS WARRANTED TO IMPROVE HER STRENGTH , ENDURANCE AND BALANCE TO INCREASE MOBILITY INDEPENDENCE AND SAFETY. RECOMMEND SNF FOR SHORT TERM REHAB VS HOME WITH P.T. AT D/C. RECOMMEND FWW AND BEDSIDE COMMODE IN ROOM. PATIENT IS CLEARED FOR OOB MOBILITY WITH NURSING ASSIST.
--- NOTE | 2019-05-26 19:25 | NUR ---
NURSE NOTES: Report taken from CHICHI Nina. Patient is awake and family at bedside. A&Ox2, not aware of the time/day and does now know which hospital she is at, aware of the procedure she underwent. No signs of distress on room air. Pain mostly when she moves, 5/10. IV site c/d/i and patent running D51/2+20KCl at 100mls/hr. Patient is incontinent, skin is intact, continue to monitor. Bed in lowest position, call light within reach.
[2019-05-26 20:00] VITALS: BP 130/74
--- NOTE | 2019-05-26 20:30 | NUR ---
NURSE NOTES: MD stopped by, endorsed to RN to advance patient to clear liquid diet.
[2019-05-27] VITALS: BP 146/79
--- NOTE | 2019-05-27 01:00 | NUR ---
NURSE NOTES: Patient woke up confused and agitated. Stated that she is ready to go home as soon as I take out her IV. She needed to be reminded of why she is in the hospital and that she cannot leave due to xi in her stomach.
[2019-05-27 04:00] VITALS: BP 155/84
[2019-05-27] MEDS: D5 1/2NS w/KCl 20mEq 1,000 ML IV SCH (04:00)
[2019-05-27 06:12] LABS: BASOPHILS % (AUTO) 1.1 % (0.0-2.0); EOSINOPHILS % (AUTO) 3.2 % (0.0-3.0); HEMATOCRIT 35.2 % (37.0-47.0); HEMOGLOBIN 12.2 G/DL (12.0-16.0); LYMPHOCYTES % (AUTO) 20.1 % (20.0-45.0); MEAN CORPUSCULAR VOLUME 106 FL (80-99); MONOCYTES % (AUTO) 11.1 % (1.0-10.0); NEUTROPHILS % (AUTO) 64.5 % (45.0-75.0); PLATELET COUNT 319 K/UL (150-450); RED BLOOD COUNT 3.32 M/UL (4.20-5.40); RED CELL DISTRIBUTION WIDTH 12.1 % (11.6-14.8); WHITE BLOOD COUNT 5.2 K/UL (4.8-10.8)
[2019-05-27 07:06] LABS: ANION GAP 9 mmol/L (5-15); BLOOD UREA NITROGEN 8 mg/dL (7-18); CALCIUM 8.6 MG/DL (8.5-10.1); CARBON DIOXIDE 25 MMOL/L (21-32); CHLORIDE 96 MMOL/L (98-107); CREATININE 0.8 MG/DL (0.55-1.30); POTASSIUM 3.7 MMOL/L (3.5-5.1); SODIUM 129 MMOL/L (136-145)
--- NOTE | 2019-05-27 07:34 | NUR ---
HAND-OFF: Report given to CHICHI Cancino. Patient is awake and in bed. VS stable.
--- NOTE | 2019-05-27 07:40 | NUR ---
NURSE NOTES: Received report from CHICHI Umanzor. Rounding done with outgoing nurse. Patient a/o x 2, in bed. IV line is patent. Patient is getting clear liquid. Surgical abdominal site is sutured and open to air, C/D/I. Bed alarm is on. bed in lowest position, call light within reach. Will continue to monitor.
--- NOTE | 2019-05-27 07:57 | Nephrology Progress Note ---
Assessment/Plan Assessment/Plan: A/P 1) YANELI- resolved 2) Hyponatremia- Na down to 129 - labs c/w SIADH. Urine OSM 512 and low UA and serum OSM, therefore DC IVFs 3) SBO- high grade SBO, s/p ex lap, OSMAR, and SB resection. per gen surgery. NG out 4) Hypokalemia- replace prn Subjective Date patient seen: May 27, 2019 Time patient seen: 07:55 ROS Limited/Unobtainable: No Allergies: Coded Allergies: IODINE (Verified Allergy, Unknown, 05/18/19) Subjective Patient starting clear liquids Objective Last 24 Hour Vital Signs Date Time Temp Pulse Resp B/P (MAP) Pulse Ox O2 Delivery O2 Flow Rate FiO2 05/27/19 04:00 98.7 87 19 155/84 (107) 97 05/27/19 00:00 98.0 88 18 146/79 (101) 100 05/26/19 21:00 Room Air 05/26/19 20:00 98.6 80 18 130/74 (92) 98 05/26/19 16:00 98.2 79 18 157/90 (112) 97 05/26/19 12:00 98.4 89 20 147/73 (97) 97 05/26/19 09:00 Room Air 05/26/19 08:00 97.8 81 18 140/76 (97) 95 Intake and Output 05/26/19 05/27/19 18:59 06:59 Intake Total 900 ml Output Total 700 ml Balance 900 ml -700 ml Intake Oral 0 ml IV Total 900 ml Output Urine Total 700 ml # Voids 5 Laboratory Tests 05/27/19 05:30: White Blood Count 5.2, Red Blood Count 3.32L, Hemoglobin 12.2, Hematocrit 35.2L , Mean Corpuscular Volume 106H, Mean Corpuscular Hemoglobin 36.6H, Mean Corpuscular Hemoglobin Concent 34.6, Red Cell Distribution Width 12.1, Platelet Count 319, Mean Platelet Volume 5.4L, Neutrophils (%) (Auto) 64.5, Lymphocytes ( %) (Auto) 20.1, Monocytes (%) (Auto) 11.1H, Eosinophils (%) (Auto) 3.2H, Basophils (%) (Auto) 1.1, Sodium Level 129L, Potassium Level 3.7, Chloride Level 96L, Carbon Dioxide Level 25, Anion Gap 9, Blood Urea Nitrogen 8, Creatinine 0.8, Estimat Glomerular Filtration Rate , Glucose Level 101, Calcium Level 8.6 Height (Feet): 5 Height (Inches): 7.00 Weight (Pounds): 121 General Appearance: no apparent distress, alert EENT: TMs normal Neck: normal alignment, supple Cardiovascular: normal rate, regular rhythm Respiratory/Chest: lungs clear, normal breath sounds Abdomen: non tender, soft Edema: no edema noted Arm (L), no edema noted Arm (R), no edema noted Leg (L), no edema noted Leg (R), no edema noted Pedal (L), no edema noted Pedal (R), no edema noted Generalized Redd Hanson MD May 27, 2019 07:57
[2019-05-27 08:00] VITALS: BP 147/88
[2019-05-27] MEDS: Pantoprazole Inj IVP SCH (08:59)
[2019-05-27] MEDS: Heparin 5000 units/ml inj SUBQ SCH ×2 (08:59→20:49)
--- NOTE | 2019-05-27 10:34 | Infectious Diseases Prog Note ---
"Assessment/Plan Assessment/Plan antibiotics : none A 1. klebsiella UTI s/p rx 2. SBO s/p resection | lysis of adhesions 3. colon cancer 4. renal failure resolved P 1. observe off antibiotics Subjective Constitutional: Denies: fever, chills Respiratory: Denies: shortness of breath, dry cough Gastrointestinal/Abdominal: Denies: nausea, vomiting, diarrhea Musculoskeletal: Denies: pain Allergies: Coded Allergies: IODINE (Verified Allergy, Unknown, 05/18/19) Objective Vital Signs Last 24 Hour Vital Signs Date Time Temp Pulse Resp B/P (MAP) Pulse Ox O2 Delivery O2 Flow Rate FiO2 05/27/19 08:00 97.4 96 20 147/88 (107) 95 05/27/19 04:00 98.7 87 19 155/84 (107) 97 05/27/19 00:00 98.0 88 18 146/79 (101) 100 05/26/19 21:00 Room Air 05/26/19 20:00 98.6 80 18 130/74 (92) 98 05/26/19 16:00 98.2 79 18 157/90 (112) 97 05/26/19 12:00 98.4 89 20 147/73 (97) 97 Height (Feet): 5 Height (Inches): 7.00 Weight (Pounds): 121 Respiratory/Chest: lungs clear Cardiovascular: normal rate, regular rhythm, no gallop/murmur Abdomen: soft, non tender Extremities: no edema Laboratory Tests Test 05/27/19 05:30 White Blood Count 5.2 K/UL (4.8-10.8) Red Blood Count 3.32 M/UL (4.20-5.40) L Hemoglobin 12.2 G/DL (12.0-16.0) Hematocrit 35.2 % (37.0-47.0) L Mean Corpuscular Volume 106 FL (80-99) H Mean Corpuscular Hemoglobin 36.6 PG (27.0-31.0) H Mean Corpuscular Hemoglobin Concent 34.6 G/DL (32.0-36.0) Red Cell Distribution Width 12.1 % (11.6-14.8) Platelet Count 319 K/UL (150-450) Mean Platelet Volume 5.4 FL (6.5-10.1) L Neutrophils (%) (Auto) 64.5 % (45.0-75.0) Lymphocytes (%) (Auto) 20.1 % (20.0-45.0) Monocytes (%) (Auto) 11.1 % (1.0-10.0) H Eosinophils (%) (Auto) 3.2 % (0.0-3.0) H Basophils (%) (Auto) 1.1 % (0.0-2.0) Sodium Level 129 MMOL/L (136-145) L Potassium Level 3.7 MMOL/L (3.5-5.1) Chloride Level 96 MMOL/L (98-107) L Carbon Dioxide Level 25 MMOL/L (21-32) Anion Gap 9 mmol/L (5-15) Blood Urea Nitrogen 8 mg/dL (7-18) Creatinine 0.8 MG/DL (0.55-1.30) Estimat Glomerular Filtration Rate mL/min (>60) Glucose Level 101 MG/DL (74-106) Calcium Level 8.6 MG/DL (8.5-10.1) Current Medications Medications (Trade) Dose Ordered Sig/Willian Route PRN Reason Start Time Stop Time Status Last Admin Dose Admin Acetaminophen (Tylenol) 650 mg Q4H PRN ORAL FEVER 05/23/19 18:46 06/22/19 18:45 Al Hydroxide/Mg Hydroxide (Mylanta) 15 ml Q6H PRN ORAL DYSPEPSIA 05/23/19 18:46 06/22/19 18:45 Diphenhydramine HCl (Benadryl) 12.5 mg Q6H PRN IVP Itching/Pruritis 05/23/19 18:30 06/22/19 18:29 Heparin Sodium (Porcine) (Heparin 5000 units/ml) 5,000 units EVERY 12 HOURS SUBQ 05/24/19 09:00 06/23/19 08:59 05/27/19 08:59 Lorazepam (Ativan 2mg/ml 1ml) 1 mg Q3H PRN IV For Anxiety 05/21/19 13:30 05/28/19 13:29 Metoclopramide HCl (Reglan) 10 mg Q6H PRN IVP Nausea & Vomiting 05/23/19 18:30 06/22/19 18:29 Morphine Sulfate (Morphine Sulfate) 1 mg Q4H PRN IVP pain scale 1-3 05/23/19 18:30 05/30/19 18:29 Morphine Sulfate (Morphine Sulfate) 2 mg Q4H PRN IVP pain scale 4-6 05/23/19 18:30 05/30/19 18:29 Morphine Sulfate (Morphine Sulfate) 4 mg Q4H PRN IVP pain score 7-10 05/23/19 18:30 05/30/19 18:29 05/23/19 20:29 Ondansetron HCl (Zofran) 4 mg Q6H PRN IVP Nausea & Vomiting 05/19/19 05:15 06/18/19 05:14 05/23/19 15:05 Pantoprazole (Protonix) 40 mg DAILY IVP 05/25/19 09:00 06/24/19 08:59 05/27/19 08:59 Bandar Miguel MD May 27, 2019 10:34"
--- NOTE | 2019-05-27 11:30 | NUR ---
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 POD#4 NO FLATUS AND BM VS: BP 157/90, P 96, T 97.4, RR 20, SpO2 95 RBC 3.32, Hct 35.2, Na 129 IS:HEPARIN SUBQ PROTONIX 40mg MORPHINE SULFATE 4mg IVP ZOFRAN 4mg IVP PLAN: ADVANCE DIET TOLERATED AWAITING BOWEL FUNCTION 3E MED/SURG STATUS
[2019-05-27 12:00] VITALS: BP 154/84
--- NOTE | 2019-05-27 13:03 | NUR ---
*-* INSURANCE *-* UPDATED CLINICALS AND REVIEW HAVE BEEN FAXED TO: [id number] PLEASE FAX THE REVIEW AND CLINICAL TO FX: [phone] PH: [phone]
--- NOTE | 2019-05-27 14:09 | Surgery Progress Note ---
Surgery Progress Note Subjective Procedure Performed exploratory laparotomy extensive lysis of adhesions small bowel resection Additional Comments afebrile, HD stable pain improved exam stable tolerating clears no BM yet not much flatus Objective Last 24 Hour Vital Signs Date Time Temp Pulse Resp B/P (MAP) Pulse Ox O2 Delivery O2 Flow Rate FiO2 05/27/19 12:00 97.5 93 20 154/84 (107) 98 05/27/19 09:00 Room Air 05/27/19 08:00 97.4 96 20 147/88 (107) 95 05/27/19 04:00 98.7 87 19 155/84 (107) 97 05/27/19 00:00 98.0 88 18 146/79 (101) 100 05/26/19 21:00 Room Air 05/26/19 20:00 98.6 80 18 130/74 (92) 98 05/26/19 16:00 98.2 79 18 157/90 (112) 97 I&O Intake and Output 05/26/19 05/27/19 19:00 07:00 Intake Total 800 ml Output Total 700 ml Balance 800 ml -700 ml Intake Oral 0 ml IV Total 800 ml Output Urine Total 700 ml # Voids 5 Dressing: dry Wound: clean, dry Cardiovascular: RSR Abdomen: soft, flat, non-tender, decreased bowel sounds Extremities: no edema, no tenderness, no cyanosis Laboratory Tests Test 05/27/19 05:30 White Blood Count 5.2 K/UL (4.8-10.8) Red Blood Count 3.32 M/UL (4.20-5.40) L Hemoglobin 12.2 G/DL (12.0-16.0) Hematocrit 35.2 % (37.0-47.0) L Mean Corpuscular Volume 106 FL (80-99) H Mean Corpuscular Hemoglobin 36.6 PG (27.0-31.0) H Mean Corpuscular Hemoglobin Concent 34.6 G/DL (32.0-36.0) Red Cell Distribution Width 12.1 % (11.6-14.8) Platelet Count 319 K/UL (150-450) Mean Platelet Volume 5.4 FL (6.5-10.1) L Neutrophils (%) (Auto) 64.5 % (45.0-75.0) Lymphocytes (%) (Auto) 20.1 % (20.0-45.0) Monocytes (%) (Auto) 11.1 % (1.0-10.0) H Eosinophils (%) (Auto) 3.2 % (0.0-3.0) H Basophils (%) (Auto) 1.1 % (0.0-2.0) Sodium Level 129 MMOL/L (136-145) L Potassium Level 3.7 MMOL/L (3.5-5.1) Chloride Level 96 MMOL/L (98-107) L Carbon Dioxide Level 25 MMOL/L (21-32) Anion Gap 9 mmol/L (5-15) Blood Urea Nitrogen 8 mg/dL (7-18) Creatinine 0.8 MG/DL (0.55-1.30) Estimat Glomerular Filtration Rate mL/min (>60) Glucose Level 101 MG/DL (74-106) Calcium Level 8.6 MG/DL (8.5-10.1) Plan Problems: (1) Hyponatremia (2) Renal insufficiency (3) UTI (urinary tract infection) (4) Small bowel obstruction Assessment & Plan: s/p ex lap for sbo recovering okay for clears ambulate and out of bed am labs (5) Abdominal pain Javier Urbina May 27, 2019 14:09
--- NOTE | 2019-05-27 14:20 | General Progress Note ---
Assessment/Plan Assessment/Plan: IMPRESSION small bowel obstruction abdominal pain colon ca UTI hyponatremia post op lysis of adhesions and small bowel resection protein calorie malnutrition PLAN NPO postop care and monitoring pain control GI and GS renal noted- monitor lytes IV hydration while NPO general surgery noted impression, plan, and exam edited and reviewed in detail care discussed with RN Subjective Allergies: Coded Allergies: IODINE (Verified Allergy, Unknown, 05/18/19) Subjective care noted and reviewed post op still NPO per GI and GS hungry Objective Last 24 Hour Vital Signs Date Time Temp Pulse Resp B/P (MAP) Pulse Ox O2 Delivery O2 Flow Rate FiO2 05/27/19 12:00 97.5 93 20 154/84 (107) 98 05/27/19 09:00 Room Air 05/27/19 08:00 97.4 96 20 147/88 (107) 95 05/27/19 04:00 98.7 87 19 155/84 (107) 97 05/27/19 00:00 98.0 88 18 146/79 (101) 100 05/26/19 21:00 Room Air 05/26/19 20:00 98.6 80 18 130/74 (92) 98 05/26/19 16:00 98.2 79 18 157/90 (112) 97 Intake and Output 05/26/19 05/27/19 19:00 07:00 Intake Total 800 ml Output Total 700 ml Balance 800 ml -700 ml Intake Oral 0 ml IV Total 800 ml Output Urine Total 700 ml # Voids 5 Laboratory Tests 05/27/19 05:30: White Blood Count 5.2, Red Blood Count 3.32L, Hemoglobin 12.2, Hematocrit 35.2L , Mean Corpuscular Volume 106H, Mean Corpuscular Hemoglobin 36.6H, Mean Corpuscular Hemoglobin Concent 34.6, Red Cell Distribution Width 12.1, Platelet Count 319, Mean Platelet Volume 5.4L, Neutrophils (%) (Auto) 64.5, Lymphocytes ( %) (Auto) 20.1, Monocytes (%) (Auto) 11.1H, Eosinophils (%) (Auto) 3.2H, Basophils (%) (Auto) 1.1, Sodium Level 129L, Potassium Level 3.7, Chloride Level 96L, Carbon Dioxide Level 25, Anion Gap 9, Blood Urea Nitrogen 8, Creatinine 0.8, Estimat Glomerular Filtration Rate , Glucose Level 101, Calcium Level 8.6 Height (Feet): 5 Height (Inches): 7.00 Weight (Pounds): 121 Objective WDWN NAD clear breath sounds bilaterally without rhonchi or wheeze [id number] without MRG tender abdomen no CCE nonfocal Gagandeep Li MD May 27, 2019 14:20
[2019-05-27 16:00] VITALS: BP 138/85
--- NOTE | 2019-05-27 18:05 | General Progress Note ---
Assessment/Plan Assessment/Plan: Assessment - high grade SBO, s/p ex lap, OSMAR, and SB resection Recommendations - clears - advance per surgery - IVF - OOB - post op care - follow labs Subjective Allergies: Coded Allergies: IODINE (Verified Allergy, Unknown, 05/18/19) Subjective above noted POD #4, s/p OSMAR and SB resection (+) small flatus on clears Objective Last 24 Hour Vital Signs Date Time Temp Pulse Resp B/P (MAP) Pulse Ox O2 Delivery O2 Flow Rate FiO2 05/27/19 16:00 97.3 96 20 138/85 (102) 95 05/27/19 12:00 97.5 93 20 154/84 (107) 98 05/27/19 09:00 Room Air 05/27/19 08:00 97.4 96 20 147/88 (107) 95 05/27/19 04:00 98.7 87 19 155/84 (107) 97 05/27/19 00:00 98.0 88 18 146/79 (101) 100 05/26/19 21:00 Room Air 05/26/19 20:00 98.6 80 18 130/74 (92) 98 Intake and Output 05/26/19 05/27/19 19:00 07:00 Intake Total 800 ml Output Total 700 ml Balance 800 ml -700 ml Intake Oral 0 ml IV Total 800 ml Output Urine Total 700 ml # Voids 5 Laboratory Tests 05/27/19 05:30: White Blood Count 5.2, Red Blood Count 3.32L, Hemoglobin 12.2, Hematocrit 35.2L , Mean Corpuscular Volume 106H, Mean Corpuscular Hemoglobin 36.6H, Mean Corpuscular Hemoglobin Concent 34.6, Red Cell Distribution Width 12.1, Platelet Count 319, Mean Platelet Volume 5.4L, Neutrophils (%) (Auto) 64.5, Lymphocytes ( %) (Auto) 20.1, Monocytes (%) (Auto) 11.1H, Eosinophils (%) (Auto) 3.2H, Basophils (%) (Auto) 1.1, Sodium Level 129L, Potassium Level 3.7, Chloride Level 96L, Carbon Dioxide Level 25, Anion Gap 9, Blood Urea Nitrogen 8, Creatinine 0.8, Estimat Glomerular Filtration Rate , Glucose Level 101, Calcium Level 8.6 Height (Feet): 5 Height (Inches): 7.00 Weight (Pounds): 121 Objective WDWN AA woman NCAT, (+) NGT supple CTA RRR abd soft ND, (+) midline incision and dressing ext: no edema Neuo: non focal Xander Tavarez MD May 27, 2019 18:05
--- NOTE | 2019-05-27 19:12 | NUR ---
NURSE NOTES: Pt received in bed at lowest position, head of bed elevated, call light within reach, surgical site on abdomen clean with xi intact and open to air, no c/o pain or signs of distress, will continue to monitor surgical site.
--- NOTE | 2019-05-27 19:17 | NUR ---
HAND-OFF: Report given to CHICHI Dougherty. Patient is stable.
[2019-05-27 20:00] VITALS: BP 143/85
--- NOTE | 2019-05-27 21:15 | NUR ---
NURSE NOTES: Pt had 1 small episode of vomiting yellow color and had a bowel movement. Given zofran and will continue to monitor. Dr. Li made aware.
[2019-05-28] VITALS: BP 112/73
--- NOTE | 2019-05-28 02:51 | NUR ---
HAND-OFF: Report given to RANJITH Sheffield. pt stable
[2019-05-28 04:00] VITALS: BP 120/74
--- NOTE | 2019-05-28 06:55 | NUR ---
NURSE NOTES: NO SIGNIFICANT CHANGE OF CONDITION NOTED THROUGHOUT THE NIGHT. RESTED WELL. SAFETY MAINTAINED. KENRICK DRY AND INTACT TO ABDOMEN, NO DRAINAGE NOTED. LEFT OPEN TO AIR. NAD.
[2019-05-28 07:24] LABS: ANION GAP 8 mmol/L (5-15); BLOOD UREA NITROGEN 12 mg/dL (7-18); CALCIUM 8.8 MG/DL (8.5-10.1); CARBON DIOXIDE 24 MMOL/L (21-32); CHLORIDE 96 MMOL/L (98-107); CREATININE 1.1 MG/DL (0.55-1.30); POTASSIUM 4.2 MMOL/L (3.5-5.1); SODIUM 128 MMOL/L (136-145)
--- NOTE | 2019-05-28 07:25 | General Progress Note ---
Assessment/Plan Assessment/Plan: Assessment/Plan: Assessment - high grade SBO, s/p ex lap, OSMAR, and SB resection Recommendations - clears - advance per surgery - IVF - OOB - post op care - follow labs Subjective ROS Limited/Unobtainable: Yes Allergies: Coded Allergies: IODINE (Verified Allergy, Unknown, 05/18/19) Objective Last 24 Hour Vital Signs Date Time Temp Pulse Resp B/P (MAP) Pulse Ox O2 Delivery O2 Flow Rate FiO2 05/28/19 04:00 99.3 101 19 120/74 (89) 95 05/28/19 00:00 97.9 101 19 112/73 (86) 96 05/27/19 21:00 Room Air 05/27/19 20:00 98.1 108 20 143/85 (104) 96 05/27/19 16:00 97.3 96 20 138/85 (102) 95 05/27/19 12:00 97.5 93 20 154/84 (107) 98 05/27/19 09:00 Room Air 05/27/19 08:00 97.4 96 20 147/88 (107) 95 Intake and Output 05/27/19 05/28/19 18:59 06:59 Intake Total 600 ml Balance 600 ml Intake Oral 600 ml # Voids 4 4 Laboratory Tests 05/28/19 06:32: Sodium Level [Pending], Potassium Level [Pending], Chloride Level [Pending], Carbon Dioxide Level [Pending], Blood Urea Nitrogen [Pending], Creatinine [ Pending], Estimat Glomerular Filtration Rate [Pending], Glucose Level [Pending] , Calcium Level [Pending] Height (Feet): 5 Height (Inches): 7.00 Weight (Pounds): 121 General Appearance: no apparent distress EENT: normal ENT inspection Neck: supple Cardiovascular: normal rate Respiratory/Chest: lungs clear Abdomen: other - post surgical, soft Extremities: non-tender Javier Kelley MD May 28, 2019 07:25
--- NOTE | 2019-05-28 07:27 | NUR ---
NURSE NOTES: ASLEEP. IN NO APPARENT DISTRESS. ABDOMINAL INCISION WITH KENRICK. INTACT AND OPEN TO AIR.
[2019-05-28 08:00] VITALS: BP 144/77
--- NOTE | 2019-05-28 08:49 | Nephrology Progress Note ---
Assessment/Plan Assessment/Plan: A/P 1) YANELI- resolved 2) Hyponatremia- Na down to 128/ The 1/2 NS has been discontinued. She is on liquid diet - labs c/w SIADH. Urine OSM 512 and low UA and serum OSM 3) SBO- high grade SBO, s/p ex lap, OSMAR, and SB resection. per gen surgery. NG out 4) Hypokalemia- replace prn Subjective Date patient seen: May 28, 2019 Time patient seen: 08:48 Allergies: Coded Allergies: IODINE (Verified Allergy, Unknown, 05/18/19) Subjective Patient on clear liquids Objective Last 24 Hour Vital Signs Date Time Temp Pulse Resp B/P (MAP) Pulse Ox O2 Delivery O2 Flow Rate FiO2 05/28/19 08:00 97.6 105 20 144/77 (99) 97 05/28/19 04:00 99.3 101 19 120/74 (89) 95 05/28/19 00:00 97.9 101 19 112/73 (86) 96 05/27/19 21:00 Room Air 05/27/19 20:00 98.1 108 20 143/85 (104) 96 05/27/19 16:00 97.3 96 20 138/85 (102) 95 05/27/19 12:00 97.5 93 20 154/84 (107) 98 05/27/19 09:00 Room Air Intake and Output 05/27/19 05/28/19 18:59 06:59 Intake Total 600 ml Balance 600 ml Intake Oral 600 ml # Voids 4 4 Laboratory Tests 05/28/19 06:32: Sodium Level 128L, Potassium Level 4.2, Chloride Level 96L, Carbon Dioxide Level 24, Anion Gap 8, Blood Urea Nitrogen 12, Creatinine 1.1, Estimat Glomerular Filtration Rate , Glucose Level 93, Calcium Level 8.8 Height (Feet): 5 Height (Inches): 7.00 Weight (Pounds): 121 General Appearance: no apparent distress EENT: normal ENT inspection Neck: normal alignment, supple Cardiovascular: normal rate, regular rhythm Respiratory/Chest: lungs clear, normal breath sounds Abdomen: non tender, soft Edema: no edema noted Arm (L), no edema noted Arm (R), no edema noted Leg (L), no edema noted Leg (R), no edema noted Pedal (L), no edema noted Pedal (R), no edema noted Generalized Redd Hanson MD May 28, 2019 08:49
[2019-05-28] MEDS: Pantoprazole Inj IVP SCH (08:59)
[2019-05-28] MEDS: Heparin 5000 units/ml inj SUBQ SCH ×2 (09:00→20:37)
--- NOTE | 2019-05-28 09:02 | General Progress Note ---
Assessment/Plan Assessment/Plan: IMPRESSION small bowel obstruction abdominal pain colon ca UTI hyponatremia post op lysis of adhesions and small bowel resection protein calorie malnutrition PLAN advance diet postop care and monitoring pain control GI and GS renal noted- monitor lytes IV hydration hope to dc soon impression, plan, and exam edited and reviewed in detail care discussed with RN Subjective Allergies: Coded Allergies: IODINE (Verified Allergy, Unknown, 05/18/19) Subjective care noted and reviewed post op Now on clears Objective Last 24 Hour Vital Signs Date Time Temp Pulse Resp B/P (MAP) Pulse Ox O2 Delivery O2 Flow Rate FiO2 05/28/19 08:00 97.6 105 20 144/77 (99) 97 05/28/19 04:00 99.3 101 19 120/74 (89) 95 05/28/19 00:00 97.9 101 19 112/73 (86) 96 05/27/19 21:00 Room Air 05/27/19 20:00 98.1 108 20 143/85 (104) 96 05/27/19 16:00 97.3 96 20 138/85 (102) 95 05/27/19 12:00 97.5 93 20 154/84 (107) 98 Intake and Output 05/27/19 05/28/19 18:59 06:59 Intake Total 600 ml Balance 600 ml Intake Oral 600 ml # Voids 4 4 Laboratory Tests 05/28/19 06:32: Sodium Level 128L, Potassium Level 4.2, Chloride Level 96L, Carbon Dioxide Level 24, Anion Gap 8, Blood Urea Nitrogen 12, Creatinine 1.1, Estimat Glomerular Filtration Rate , Glucose Level 93, Calcium Level 8.8 Height (Feet): 5 Height (Inches): 7.00 Weight (Pounds): 121 Objective WDWN NAD clear breath sounds bilaterally without rhonchi or wheeze [id number] without MRG NABS no CCE nonfocal Gagandeep Li MD May 28, 2019 09:02
--- NOTE | 2019-05-28 10:34 | Infectious Diseases Prog Note ---
Assessment/Plan Assessment/Plan IMPRESSION: 1. Klebsiella urinary tract infection, treated 2. small bowel obstruction. -s/p laparotomy, lysis of adhesions & bowel resection 3. Hyponatremia. 4. History of colon cancer. 5. Acute renal failure that is resolved. 6. Hypokalemia RECOMMENDATIONS: Observe off antibiotic Subjective ROS Limited/Unobtainable: Yes Constitutional: Denies: fever Allergies: Coded Allergies: IODINE (Verified Allergy, Unknown, 05/18/19) Objective Vital Signs Last 24 Hour Vital Signs Date Time Temp Pulse Resp B/P (MAP) Pulse Ox O2 Delivery O2 Flow Rate FiO2 05/28/19 09:38 Room Air 05/28/19 08:00 97.6 105 20 144/77 (99) 97 05/28/19 04:00 99.3 101 19 120/74 (89) 95 05/28/19 00:00 97.9 101 19 112/73 (86) 96 05/27/19 21:00 Room Air 05/27/19 20:00 98.1 108 20 143/85 (104) 96 05/27/19 16:00 97.3 96 20 138/85 (102) 95 05/27/19 12:00 97.5 93 20 154/84 (107) 98 Height (Feet): 5 Height (Inches): 7.00 Weight (Pounds): 121 General Appearance: no acute distress HEENT: mucous membranes moist Respiratory/Chest: lungs clear Cardiovascular: tachycardia Abdomen: soft, non tender Extremities: no edema Neurologic/Psychiatric: other - sleeping Laboratory Tests Test 05/28/19 06:32 Sodium Level 128 MMOL/L (136-145) L Potassium Level 4.2 MMOL/L (3.5-5.1) Chloride Level 96 MMOL/L (98-107) L Carbon Dioxide Level 24 MMOL/L (21-32) Anion Gap 8 mmol/L (5-15) Blood Urea Nitrogen 12 mg/dL (7-18) Creatinine 1.1 MG/DL (0.55-1.30) Estimat Glomerular Filtration Rate mL/min (>60) Glucose Level 93 MG/DL (74-106) Calcium Level 8.8 MG/DL (8.5-10.1) Current Medications Medications (Trade) Dose Ordered Sig/Willian Route PRN Reason Start Time Stop Time Status Last Admin Dose Admin Acetaminophen (Tylenol) 650 mg Q4H PRN ORAL FEVER 05/23/19 18:46 06/22/19 18:45 Al Hydroxide/Mg Hydroxide (Mylanta) 15 ml Q6H PRN ORAL DYSPEPSIA 05/23/19 18:46 06/22/19 18:45 Diphenhydramine HCl (Benadryl) 12.5 mg Q6H PRN IVP Itching/Pruritis 05/23/19 18:30 06/22/19 18:29 Heparin Sodium (Porcine) (Heparin 5000 units/ml) 5,000 units EVERY 12 HOURS SUBQ 05/24/19 09:00 06/23/19 08:59 05/28/19 09:00 Lorazepam (Ativan 2mg/ml 1ml) 1 mg Q3H PRN IV For Anxiety 05/21/19 13:30 05/28/19 13:29 Metoclopramide HCl (Reglan) 10 mg Q6H PRN IVP Nausea & Vomiting 05/23/19 18:30 06/22/19 18:29 Morphine Sulfate (Morphine Sulfate) 1 mg Q4H PRN IVP pain scale 1-3 05/23/19 18:30 05/30/19 18:29 Morphine Sulfate (Morphine Sulfate) 2 mg Q4H PRN IVP pain scale 4-6 05/23/19 18:30 05/30/19 18:29 Morphine Sulfate (Morphine Sulfate) 4 mg Q4H PRN IVP pain score 7-10 05/23/19 18:30 05/30/19 18:29 05/23/19 20:29 Ondansetron HCl (Zofran) 4 mg Q6H PRN IVP Nausea & Vomiting 05/19/19 05:15 06/18/19 05:14 05/27/19 21:18 Pantoprazole (Protonix) 40 mg DAILY IVP 05/25/19 09:00 06/24/19 08:59 05/28/19 08:59 David Castellanos MD May 28, 2019 10:34
[2019-05-28] MEDS ORDERED: Fleet's Enema 133ml RECTAL ONE ×2 (11:30→11:45)
--- NOTE | 2019-05-28 11:41 | Surgery Progress Note ---
Surgery Progress Note Subjective Procedure Performed exploratory laparotomy extensive lysis of adhesions small bowel resection Symptoms: improved, tolerating diet, voiding well, pain decreased Additional Comments unsure if she is passing flatus Objective Last 24 Hour Vital Signs Date Time Temp Pulse Resp B/P (MAP) Pulse Ox O2 Delivery O2 Flow Rate FiO2 05/28/19 09:38 Room Air 05/28/19 08:00 97.6 105 20 144/77 (99) 97 05/28/19 04:00 99.3 101 19 120/74 (89) 95 05/28/19 00:00 97.9 101 19 112/73 (86) 96 05/27/19 21:00 Room Air 05/27/19 20:00 98.1 108 20 143/85 (104) 96 05/27/19 16:00 97.3 96 20 138/85 (102) 95 05/27/19 12:00 97.5 93 20 154/84 (107) 98 I&O Intake and Output 05/27/19 05/28/19 18:59 06:59 Intake Total 600 ml Balance 600 ml Intake Oral 600 ml # Voids 4 4 Dressing: dry Wound: clean Cardiovascular: RSR Respiratory: clear Abdomen: soft, flat, non-tender, present bowel sounds, non-distended Extremities: no edema, no tenderness, no cyanosis Laboratory Tests Test 05/28/19 06:32 Sodium Level 128 MMOL/L (136-145) L Potassium Level 4.2 MMOL/L (3.5-5.1) Chloride Level 96 MMOL/L (98-107) L Carbon Dioxide Level 24 MMOL/L (21-32) Anion Gap 8 mmol/L (5-15) Blood Urea Nitrogen 12 mg/dL (7-18) Creatinine 1.1 MG/DL (0.55-1.30) Estimat Glomerular Filtration Rate mL/min (>60) Glucose Level 93 MG/DL (74-106) Calcium Level 8.8 MG/DL (8.5-10.1) Plan Problems: (1) Hyponatremia (2) Renal insufficiency (3) UTI (urinary tract infection) (4) Small bowel obstruction Assessment & Plan: s/p ex lap for sbo recovering okay for clears ambulate and out of bed am labs KUB enema (5) Abdominal pain Javier Urbina May 28, 2019 11:41
[2019-05-28 12:00] VITALS: BP 127/65
--- NOTE | 2019-05-28 12:26 | NUR ---
NURSE NOTES: FLEETS ENEMA ORDERED DUPLICATE PER DR SMALLWOOD. PT GIVEN FLEETS ENEMA AT 1131. HAD SMALL AMT OF BROWN BM.
[2019-05-28 16:00] VITALS: BP 129/73
--- NOTE | 2019-05-28 19:00 | NUR ---
NURSE NOTES: RESTING IN BED. IN NO APPARENT DISTRESS.
--- NOTE | 2019-05-28 19:09 | NUR ---
HAND-OFF: Report given to Gini THOMAS LVN.
--- NOTE | 2019-05-28 19:30 | NUR ---
NURSE NOTES: RECEIVED PATIENT LYING IN BED, APPEAR TO BE ASLEEP,EASILY AWAKENED TO NAME, DENIES PAIN. NO SIGNS AND SYMPTOMS OF ACUTE CARDIO RESPIRATORY DISTRESS/SHORTNESS OF BREATH, DENIES CHEST PAIN, NO EDEMA NOTED. INCONTINENT OF BLADDER, CARE PROVIDED, REPOSITIONED FOR COMFORT/PRESSURE RELIEF, TOLERATED WELL. SIDE RAILS UP X3/BED IN LOWEST POSITION FOR SAFETY,CALL LIGHT WITHIN REACH. BED ALARM ACTIVATED FOR SAFETY. CONTINUE WITH CURRENT PLAN OF CARE. NAD.
[2019-05-28 20:00] VITALS: BP 141/77
[2019-05-29] VITALS: BP 116/69
[2019-05-29 04:00] VITALS: BP 124/73
--- NOTE | 2019-05-29 06:52 | General Progress Note ---
Assessment/Plan Assessment/Plan: Assessment/Plan: Assessment - high grade SBO, s/p ex lap, OSMAR, and SB resection Recommendations - clears - advance per surgery - IVF - OOB - post op care - follow labs Subjective ROS Limited/Unobtainable: Yes Allergies: Coded Allergies: IODINE (Verified Allergy, Unknown, 05/18/19) Objective Last 24 Hour Vital Signs Date Time Temp Pulse Resp B/P (MAP) Pulse Ox O2 Delivery O2 Flow Rate FiO2 05/29/19 04:00 97.3 89 18 124/73 (90) 96 05/29/19 00:00 97.9 86 18 116/69 (85) 97 05/28/19 21:00 Room Air 05/28/19 20:00 97.1 91 18 141/77 (98) 96 05/28/19 16:00 97.6 86 20 129/73 (91) 97 05/28/19 12:00 97.9 99 18 127/65 (85) 96 05/28/19 09:38 Room Air 05/28/19 08:00 97.6 105 20 144/77 (99) 97 Intake and Output 05/28/19 05/29/19 19:00 07:00 Intake Total 340 ml 360 ml Balance 340 ml 360 ml Intake Oral 340 ml 360 ml # Voids 2 3 # Bowel Movements 1 1 Height (Feet): 5 Height (Inches): 7.00 Weight (Pounds): 121 General Appearance: alert EENT: normal ENT inspection Neck: supple Cardiovascular: normal rate Respiratory/Chest: decreased breath sounds Abdomen: other - post surgical Extremities: non-tender Javier Kelley MD May 29, 2019 06:52
--- NOTE | 2019-05-29 07:57 | NUR ---
NURSE NOTES: received report from RANJITH Sheffield. patient in bed.sleeping. no respiratory distress noted on room air. IV on RISHABH 22g heplock intact. fall risk. bedside comode. bed in the lowest position. call light within reach. will continue to provide plan of care.
[2019-05-29 08:00] VITALS: BP 126/43
--- NOTE | 2019-05-29 08:22 | Nephrology Progress Note ---
Assessment/Plan Assessment/Plan: A/P 1) YANELI- resolved. AM LABS PENDING 2) Hyponatremia- Na down to 128/ The 1/2 NS has been discontinued. She is on liquid diet - labs c/w SIADH. Urine OSM 512 and low UA and serum OSM - AM LABS PENDING 3) SBO- high grade SBO, s/p ex lap, OSMAR, and SB resection. 4) Hypokalemia- replace prn - AM LABS PENDING Subjective Date patient seen: May 29, 2019 Time patient seen: 08:21 Allergies: Coded Allergies: IODINE (Verified Allergy, Unknown, 05/18/19) Subjective Patient on clear liquids. No N/D. Feels tired Objective Last 24 Hour Vital Signs Date Time Temp Pulse Resp B/P (MAP) Pulse Ox O2 Delivery O2 Flow Rate FiO2 05/29/19 04:00 97.3 89 18 124/73 (90) 96 05/29/19 00:00 97.9 86 18 116/69 (85) 97 05/28/19 21:00 Room Air 05/28/19 20:00 97.1 91 18 141/77 (98) 96 05/28/19 16:00 97.6 86 20 129/73 (91) 97 05/28/19 12:00 97.9 99 18 127/65 (85) 96 05/28/19 09:38 Room Air Intake and Output 05/28/19 05/29/19 19:00 07:00 Intake Total 340 ml 360 ml Balance 340 ml 360 ml Intake Oral 340 ml 360 ml # Voids 2 3 # Bowel Movements 1 1 Height (Feet): 5 Height (Inches): 7.00 Weight (Pounds): 121 General Appearance: no apparent distress, alert EENT: normal ENT inspection Neck: normal alignment, supple Cardiovascular: normal rate, regularly irregular Respiratory/Chest: lungs clear, normal breath sounds Abdomen: non tender, soft Edema: no edema noted Arm (L), no edema noted Arm (R), no edema noted Leg (L), no edema noted Leg (R), no edema noted Pedal (L), no edema noted Pedal (R), no edema noted Generalized Redd Hanson MD May 29, 2019 08:22
[2019-05-29] MEDS: Pantoprazole Inj IVP SCH (09:45)
[2019-05-29] MEDS: Heparin 5000 units/ml inj SUBQ SCH ×2 (09:46→20:37)
[2019-05-29 10:07] LABS: ANION GAP 11 mmol/L (5-15); BLOOD UREA NITROGEN 13 mg/dL (7-18); CALCIUM 8.8 MG/DL (8.5-10.1); CARBON DIOXIDE 22 MMOL/L (21-32); CHLORIDE 99 MMOL/L (98-107); POTASSIUM 3.8 MMOL/L (3.5-5.1); SODIUM 132 MMOL/L (136-145)
--- NOTE | 2019-05-29 10:19 | NUR ---
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 S/P EX LAB FOR SBO VS: BP 141/77, P 93, T 97.6, RR 18, SpO2 96 Na 132 IS:HEPARIN SUBQ PROTONIX 40mg IVP PLAN: OKAY FOR CLEARS ADVANCE DIET 3E MED/SURG STATUS
[2019-05-29 12:00] VITALS: BP 141/77
--- NOTE | 2019-05-29 13:05 | Surgery Progress Note ---
Surgery Progress Note Subjective Procedure Performed exploratory laparotomy extensive lysis of adhesions small bowel resection Symptoms: improved, tolerating diet, voiding well, passing flatus, BM, pain decreased Objective Last 24 Hour Vital Signs Date Time Temp Pulse Resp B/P (MAP) Pulse Ox O2 Delivery O2 Flow Rate FiO2 05/29/19 09:00 Room Air 05/29/19 08:00 98.3 104 20 126/43 (70) 100 05/29/19 04:00 97.3 89 18 124/73 (90) 96 05/29/19 00:00 97.9 86 18 116/69 (85) 97 05/28/19 21:00 Room Air 05/28/19 20:00 97.1 91 18 141/77 (98) 96 05/28/19 16:00 97.6 86 20 129/73 (91) 97 I&O Intake and Output 05/28/19 05/29/19 18:59 06:59 Intake Total 340 ml 360 ml Balance 340 ml 360 ml Intake Oral 340 ml 360 ml # Voids 2 3 # Bowel Movements 1 1 Wound: clean, dry Cardiovascular: RSR Respiratory: clear Abdomen: soft, flat, non-tender, present bowel sounds, non-distended Extremities: no edema, no tenderness, no cyanosis Laboratory Tests Test 05/29/19 09:21 Sodium Level 132 MMOL/L (136-145) L Potassium Level 3.8 MMOL/L (3.5-5.1) Chloride Level 99 MMOL/L (98-107) Carbon Dioxide Level 22 MMOL/L (21-32) Anion Gap 11 mmol/L (5-15) Blood Urea Nitrogen 13 mg/dL (7-18) Creatinine 1.0 MG/DL (0.55-1.30) Estimat Glomerular Filtration Rate mL/min (>60) Glucose Level 82 MG/DL (74-106) Calcium Level 8.8 MG/DL (8.5-10.1) Plan Problems: (1) Hyponatremia (2) Renal insufficiency (3) UTI (urinary tract infection) (4) Small bowel obstruction Assessment & Plan: s/p ex lap for sbo recovering okay for clears ambulate and out of bed am labs advance diet (5) Abdominal pain Javier Urbina May 29, 2019 13:05
[2019-05-29 16:00] VITALS: BP 141/77
--- NOTE | 2019-05-29 18:27 | General Progress Note ---
Assessment/Plan Assessment/Plan: IMPRESSION small bowel obstruction abdominal pain colon ca UTI, treated hyponatremia post op lysis of adhesions and small bowel resection protein calorie malnutrition PLAN advance diet per susrgery postop care and monitoring pain control GI and GS hope to dc soon impression, plan, and exam edited and reviewed in detail care discussed with RN Subjective Allergies: Coded Allergies: IODINE (Verified Allergy, Unknown, 05/18/19) Subjective care noted and reviewed post op still on clears Objective Last 24 Hour Vital Signs Date Time Temp Pulse Resp B/P (MAP) Pulse Ox O2 Delivery O2 Flow Rate FiO2 05/29/19 16:00 97.6 93 18 141/77 (98) 96 05/29/19 12:00 97.6 93 18 141/77 (98) 96 05/29/19 09:00 Room Air 05/29/19 08:00 98.3 104 20 126/43 (70) 100 05/29/19 04:00 97.3 89 18 124/73 (90) 96 05/29/19 00:00 97.9 86 18 116/69 (85) 97 05/28/19 21:00 Room Air 05/28/19 20:00 97.1 91 18 141/77 (98) 96 Intake and Output 05/28/19 05/29/19 19:00 07:00 Intake Total 340 ml 360 ml Balance 340 ml 360 ml Intake Oral 340 ml 360 ml # Voids 2 3 # Bowel Movements 1 1 Laboratory Tests 05/29/19 09:21: Sodium Level 132L, Potassium Level 3.8, Chloride Level 99, Carbon Dioxide Level 22, Anion Gap 11, Blood Urea Nitrogen 13, Creatinine 1.0, Estimat Glomerular Filtration Rate , Glucose Level 82, Calcium Level 8.8 Height (Feet): 5 Height (Inches): 7.00 Weight (Pounds): 121 Objective WDWN NAD clear breath sounds bilaterally without rhonchi or wheeze [id number] without MRG NABS no CCE nonfocal Gagandeep Li MD May 29, 2019 18:27
--- NOTE | 2019-05-29 19:02 | NUR ---
HAND-OFF: Report given to RANJITH Sheffield.
--- NOTE | 2019-05-29 19:42 | NUR ---
HAND-OFF: Report given to CHICHI SALINAS.
--- NOTE | 2019-05-29 19:51 | NUR ---
NURSE NOTES: RECEIVED PATIENT LYING IN BED, AWAKE, ALERT/ORIENTED TO PERSON/PLACE, REALITY ORIENTATION PROVIDED, DENIES PAIN, NO SIGNS AND SYMPTOMS OF ACUTE CARDIO RESPIRATORY DISTRESS/SHORTNESS OF BREATH, NO PERIPHERAL EDEMA NOTED. KENRICK DRY AND INTACT TO MID ABDOMEN/OPEN TO AIR. PO DIET ADVANCED TO FULL LIQUID, TOLERATING WELL, NO N/V. SIDE RAILS UP X3/BED IN LOWEST POSITION FOR SAFETY. ENCOURAGED PATIENT TO UTILIZE CALL LIGHT FOR ASSISTANCE, VERBALIZED UNDERSTANDING. CONTINUE WITH CURRENT PLAN OF CARE. NAD.
[2019-05-29 20:00] VITALS: BP 133/67
[2019-05-30] VITALS: BP 133/77
[2019-05-30 04:00] VITALS: BP 132/79
--- NOTE | 2019-05-30 06:48 | NUR ---
NURSE NOTES: RESTED WELL, NO SIGNIFICANT CHANGE OF CONDITION NOTED THROUGHOUT THE NIGHT. SAFETY MAINTAINED. NAD.
--- NOTE | 2019-05-30 07:50 | NUR ---
NURSE NOTES: Pt currently sleeping. Awake earlier in shift . Ate well , well be monitored for tolerance of diet. Call light is in reach
--- NOTE | 2019-05-30 07:57 | Nephrology Progress Note ---
Assessment/Plan Assessment/Plan: A/P 1) YANELI- resolved. 2) Hyponatremia- Na 132. OK for DC from renal point - labs c/w SIADH. Urine OSM 512 and low UA and serum OSM 3) SBO- high grade SBO, s/p ex lap, OSMAR, and SB resection. - exploratory laparotomy extensive lysis of adhesions small bowel resection 4) Hypokalemia- replace prn Subjective Date patient seen: May 30, 2019 Time patient seen: 07:55 ROS Limited/Unobtainable: No Allergies: Coded Allergies: IODINE (Verified Allergy, Unknown, 05/18/19) Subjective Patient feeling better and tolearting diet Objective Last 24 Hour Vital Signs Date Time Temp Pulse Resp B/P (MAP) Pulse Ox O2 Delivery O2 Flow Rate FiO2 05/30/19 04:00 97.3 72 18 132/79 (96) 99 05/30/19 00:00 97.9 89 18 133/77 (95) 97 05/29/19 21:00 Room Air 05/29/19 20:00 98.8 94 18 133/67 (89) 97 05/29/19 16:00 97.6 93 18 141/77 (98) 96 05/29/19 12:00 97.6 93 18 141/77 (98) 96 05/29/19 09:00 Room Air 05/29/19 08:00 98.3 104 20 126/43 (70) 100 Intake and Output 05/29/19 05/30/19 19:00 07:00 Intake Total 300 ml 420 ml Balance 300 ml 420 ml Intake Oral 300 ml 420 ml # Voids 1 4 # Bowel Movements 1 Laboratory Tests 05/29/19 09:21: Sodium Level 132L, Potassium Level 3.8, Chloride Level 99, Carbon Dioxide Level 22, Anion Gap 11, Blood Urea Nitrogen 13, Creatinine 1.0, Estimat Glomerular Filtration Rate , Glucose Level 82, Calcium Level 8.8 05/30/19 06:08: Sodium Level [Pending], Potassium Level [Pending], Chloride Level [Pending], Carbon Dioxide Level [Pending], Blood Urea Nitrogen [Pending], Creatinine [ Pending], Estimat Glomerular Filtration Rate [Pending], Glucose Level [Pending] , Calcium Level [Pending], White Blood Count [Pending], Red Blood Count [Pending ], Hemoglobin [Pending], Hematocrit [Pending], Mean Corpuscular Volume [Pending] , Mean Corpuscular Hemoglobin [Pending], Mean Corpuscular Hemoglobin Concent [ Pending], Red Cell Distribution Width [Pending], Platelet Count [Pending], Mean Platelet Volume [Pending], Neutrophils (%) (Auto) [Pending], Lymphocytes (%) ( Auto) [Pending], Monocytes (%) (Auto) [Pending], Eosinophils (%) (Auto) [Pending ], Basophils (%) (Auto) [Pending] Height (Feet): 5 Height (Inches): 7.00 Weight (Pounds): 121 General Appearance: no apparent distress, alert EENT: normal ENT inspection Neck: normal alignment, supple Cardiovascular: normal rate, regular rhythm Respiratory/Chest: lungs clear, normal breath sounds Abdomen: non tender, soft Edema: no edema noted Arm (L), no edema noted Arm (R), no edema noted Leg (L), no edema noted Leg (R), no edema noted Pedal (L), no edema noted Pedal (R), no edema noted Generalized Redd Hanson MD May 30, 2019 07:57
[2019-05-30 07:59] LABS: BASOPHILS % (AUTO) 0.5 % (0.0-2.0); EOSINOPHILS % (AUTO) 0.9 % (0.0-3.0); HEMATOCRIT 28.8 % (37.0-47.0); HEMOGLOBIN 10.2 G/DL (12.0-16.0); LYMPHOCYTES % (AUTO) 21.9 % (20.0-45.0); MEAN CORPUSCULAR VOLUME 104 FL (80-99); MONOCYTES % (AUTO) 6.7 % (1.0-10.0); NEUTROPHILS % (AUTO) 69.9 % (45.0-75.0); PLATELET COUNT 312 K/UL (150-450); RED BLOOD COUNT 2.76 M/UL (4.20-5.40); RED CELL DISTRIBUTION WIDTH 11.8 % (11.6-14.8); WHITE BLOOD COUNT 4.9 K/UL (4.8-10.8)
[2019-05-30 08:00] VITALS: BP 129/75
--- NOTE | 2019-05-30 08:18 | General Progress Note ---
Assessment/Plan Assessment/Plan: IMPRESSION small bowel obstruction abdominal pain colon ca UTI, treated hyponatremia post op lysis of adhesions and small bowel resection protein calorie malnutrition PLAN advance diet per surgery and GI overall stable hope to dc soon if cleared ? today impression, plan, and exam edited and reviewed in detail care discussed with RN Subjective Allergies: Coded Allergies: IODINE (Verified Allergy, Unknown, 05/18/19) Subjective care noted and reviewed post op still on clears Objective Last 24 Hour Vital Signs Date Time Temp Pulse Resp B/P (MAP) Pulse Ox O2 Delivery O2 Flow Rate FiO2 05/30/19 04:00 97.3 72 18 132/79 (96) 99 05/30/19 00:00 97.9 89 18 133/77 (95) 97 05/29/19 21:00 Room Air 05/29/19 20:00 98.8 94 18 133/67 (89) 97 05/29/19 16:00 97.6 93 18 141/77 (98) 96 05/29/19 12:00 97.6 93 18 141/77 (98) 96 05/29/19 09:00 Room Air Intake and Output 05/29/19 05/30/19 19:00 07:00 Intake Total 300 ml 420 ml Balance 300 ml 420 ml Intake Oral 300 ml 420 ml # Voids 1 4 # Bowel Movements 1 Laboratory Tests 05/29/19 09:21: Sodium Level 132L, Potassium Level 3.8, Chloride Level 99, Carbon Dioxide Level 22, Anion Gap 11, Blood Urea Nitrogen 13, Creatinine 1.0, Estimat Glomerular Filtration Rate , Glucose Level 82, Calcium Level 8.8 05/30/19 06:08: Sodium Level [Pending], Potassium Level [Pending], Chloride Level [Pending], Carbon Dioxide Level [Pending], Blood Urea Nitrogen [Pending], Creatinine [ Pending], Estimat Glomerular Filtration Rate [Pending], Glucose Level [Pending] , Calcium Level [Pending], White Blood Count 4.9, Red Blood Count 2.76L, Hemoglobin 10.2L, Hematocrit 28.8L, Mean Corpuscular Volume 104H, Mean Corpuscular Hemoglobin 36.8H, Mean Corpuscular Hemoglobin Concent 35.3, Red Cell Distribution Width 11.8, Platelet Count 312, Mean Platelet Volume 4.8L, Neutrophils (%) (Auto) 69.9, Lymphocytes (%) (Auto) 21.9, Monocytes (%) (Auto) 6.7, Eosinophils (%) (Auto) 0.9, Basophils (%) (Auto) 0.5 Height (Feet): 5 Height (Inches): 7.00 Weight (Pounds): 121 Objective WDWN NAD clear breath sounds bilaterally without rhonchi or wheeze [id number] without MRG NABS no CCE nonfocal Gagandeep Li MD May 30, 2019 08:18
[2019-05-30 08:20] LABS: ANION GAP 11 mmol/L (5-15); BLOOD UREA NITROGEN 13 mg/dL (7-18); CALCIUM 8.9 MG/DL (8.5-10.1); CARBON DIOXIDE 22 MMOL/L (21-32); CHLORIDE 95 MMOL/L (98-107); CREATININE 0.9 MG/DL (0.55-1.30); POTASSIUM 3.4 MMOL/L (3.5-5.1); SODIUM 128 MMOL/L (136-145)
--- NOTE | 2019-05-30 08:21 | General Progress Note ---
Assessment/Plan Assessment/Plan: Assessment - high grade SBO, s/p ex lap, OSMAR, and SB resection - doing well Recommendations - IVF - OOB - post op care - follow labs - d/c if OK with surgery Subjective Allergies: Coded Allergies: IODINE (Verified Allergy, Unknown, 05/18/19) Subjective above noted s/p OSMAR and SB resection (+) BM Objective Last 24 Hour Vital Signs Date Time Temp Pulse Resp B/P (MAP) Pulse Ox O2 Delivery O2 Flow Rate FiO2 05/30/19 04:00 97.3 72 18 132/79 (96) 99 05/30/19 00:00 97.9 89 18 133/77 (95) 97 05/29/19 21:00 Room Air 05/29/19 20:00 98.8 94 18 133/67 (89) 97 05/29/19 16:00 97.6 93 18 141/77 (98) 96 05/29/19 12:00 97.6 93 18 141/77 (98) 96 05/29/19 09:00 Room Air Intake and Output 05/29/19 05/30/19 19:00 07:00 Intake Total 300 ml 420 ml Balance 300 ml 420 ml Intake Oral 300 ml 420 ml # Voids 1 4 # Bowel Movements 1 Laboratory Tests 05/29/19 09:21: Sodium Level 132L, Potassium Level 3.8, Chloride Level 99, Carbon Dioxide Level 22, Anion Gap 11, Blood Urea Nitrogen 13, Creatinine 1.0, Estimat Glomerular Filtration Rate , Glucose Level 82, Calcium Level 8.8 05/30/19 06:08: Sodium Level [Pending], Potassium Level [Pending], Chloride Level [Pending], Carbon Dioxide Level [Pending], Blood Urea Nitrogen [Pending], Creatinine [ Pending], Estimat Glomerular Filtration Rate [Pending], Glucose Level [Pending] , Calcium Level [Pending], White Blood Count 4.9, Red Blood Count 2.76L, Hemoglobin 10.2L, Hematocrit 28.8L, Mean Corpuscular Volume 104H, Mean Corpuscular Hemoglobin 36.8H, Mean Corpuscular Hemoglobin Concent 35.3, Red Cell Distribution Width 11.8, Platelet Count 312, Mean Platelet Volume 4.8L, Neutrophils (%) (Auto) 69.9, Lymphocytes (%) (Auto) 21.9, Monocytes (%) (Auto) 6.7, Eosinophils (%) (Auto) 0.9, Basophils (%) (Auto) 0.5 Height (Feet): 5 Height (Inches): 7.00 Weight (Pounds): 121 Objective WDWN AA woman NCAT, (+) NGT supple CTA RRR abd soft ND, (+) midline incision and dressing ext: no edema Neuo: non focal Xander Tavarez MD May 30, 2019 08:21
[2019-05-30] MEDS: Pantoprazole Inj IVP SCH (09:34)
[2019-05-30] MEDS: Heparin 5000 units/ml inj SUBQ SCH ×2 (09:36→20:53)
--- NOTE | 2019-05-30 10:10 | NUR ---
*-* INSURANCE *-* UPDATED CLINICALS HAVE BEEN FAXED TO: [employer] PLEASE FAX THE REVIEW AND CLINICAL TO FX: [phone] PH: [phone]
--- NOTE | 2019-05-30 10:26 | NUR ---
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 S/P EX LAB FOR SBO VS: BP 129/75, P 72, T 97.3, RR 18, SpO2 99 RBC 2.76, H&H 10.2/28.8, Na 128, K 3.4 IS:PROTONIX 40mg HEPARIN SUBQ MORPHINE SULFATE 2mg IVP PLAN: STILL ON CLEARS 3E MED/SURG STATUS
--- NOTE | 2019-05-30 10:59 | NUR ---
NURSE NOTES: Pt has poor short term memory. Required re orientation. 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 Asked for bed savage , but did not realize she had urinated already. Gown and linens changed. Hair combed, beginning to become matted in center of head. Did not tolerate sitting up in a chair , requested to be placed back in bed , after 5 minutes of sitting down. Bed is in safe position . Call light is in reach
--- NOTE | 2019-05-30 11:10 | General Progress Note ---
Progress Note Progress Note doing well pain much improved no n/v/f/c tolerating diet had BM adv diet d/c planning Javier Urbina May 30, 2019 11:10
--- NOTE | 2019-05-30 11:12 | Infectious Diseases Prog Note ---
"Assessment/Plan Assessment/Plan antibiotics : none A 1. klebsiella UTI s/p rx 2. SBO s/p resection | lysis of adhesions 3. colon cancer 4. renal failure resolved P 1. observe off antibiotics Subjective Constitutional: Denies: fever, chills Respiratory: Denies: shortness of breath, dry cough Gastrointestinal/Abdominal: Denies: nausea, vomiting, diarrhea Neurologic: Reports: other - dizzy Musculoskeletal: Denies: pain Allergies: Coded Allergies: IODINE (Verified Allergy, Unknown, 05/18/19) Objective Vital Signs Last 24 Hour Vital Signs Date Time Temp Pulse Resp B/P (MAP) Pulse Ox O2 Delivery O2 Flow Rate FiO2 05/30/19 09:00 Room Air 05/30/19 08:00 98.3 18 129/75 (93) 97 05/30/19 04:00 97.3 72 18 132/79 (96) 99 05/30/19 00:00 97.9 89 18 133/77 (95) 97 05/29/19 21:00 Room Air 05/29/19 20:00 98.8 94 18 133/67 (89) 97 05/29/19 16:00 97.6 93 18 141/77 (98) 96 05/29/19 12:00 97.6 93 18 141/77 (98) 96 Height (Feet): 5 Height (Inches): 7.00 Weight (Pounds): 121 Respiratory/Chest: lungs clear Cardiovascular: normal rate, regular rhythm, no gallop/murmur Abdomen: soft, non tender, other - wound clean Extremities: no edema Laboratory Tests Test 05/30/19 06:08 White Blood Count 4.9 K/UL (4.8-10.8) Red Blood Count 2.76 M/UL (4.20-5.40) L Hemoglobin 10.2 G/DL (12.0-16.0) L Hematocrit 28.8 % (37.0-47.0) L Mean Corpuscular Volume 104 FL (80-99) H Mean Corpuscular Hemoglobin 36.8 PG (27.0-31.0) H Mean Corpuscular Hemoglobin Concent 35.3 G/DL (32.0-36.0) Red Cell Distribution Width 11.8 % (11.6-14.8) Platelet Count 312 K/UL (150-450) Mean Platelet Volume 4.8 FL (6.5-10.1) L Neutrophils (%) (Auto) 69.9 % (45.0-75.0) Lymphocytes (%) (Auto) 21.9 % (20.0-45.0) Monocytes (%) (Auto) 6.7 % (1.0-10.0) Eosinophils (%) (Auto) 0.9 % (0.0-3.0) Basophils (%) (Auto) 0.5 % (0.0-2.0) Sodium Level 128 MMOL/L (136-145) L Potassium Level 3.4 MMOL/L (3.5-5.1) L Chloride Level 95 MMOL/L (98-107) L Carbon Dioxide Level 22 MMOL/L (21-32) Anion Gap 11 mmol/L (5-15) Blood Urea Nitrogen 13 mg/dL (7-18) Creatinine 0.9 MG/DL (0.55-1.30) Estimat Glomerular Filtration Rate mL/min (>60) Glucose Level 77 MG/DL (74-106) Calcium Level 8.9 MG/DL (8.5-10.1) Current Medications Medications (Trade) Dose Ordered Sig/Willian Route PRN Reason Start Time Stop Time Status Last Admin Dose Admin Acetaminophen (Tylenol) 650 mg Q4H PRN ORAL FEVER 05/23/19 18:46 06/22/19 18:45 Acetaminophen/ Hydrocodone Bitart ([place] 5/325) 1 tab Q4H PRN ORAL Moderate Pain (Pain Scale 4-6) 05/30/19 11:15 06/06/19 11:14 UNV Al Hydroxide/Mg Hydroxide (Mylanta) 15 ml Q6H PRN ORAL DYSPEPSIA 05/23/19 18:46 06/22/19 18:45 Diphenhydramine HCl (Benadryl) 12.5 mg Q6H PRN IVP Itching/Pruritis 05/23/19 18:30 06/22/19 18:29 Docusate Sodium (Colace) 100 mg TWICE A DAY ORAL 05/30/19 18:00 06/29/19 17:59 UNV Heparin Sodium (Porcine) (Heparin 5000 units/ml) 5,000 units EVERY 12 HOURS SUBQ 05/24/19 09:00 06/23/19 08:59 05/30/19 09:36 Magnesium Hydroxide (Mom) 30 ml ONCE ONCE ORAL 05/30/19 11:15 05/30/19 11:16 UNV Metoclopramide HCl (Reglan) 10 mg Q6H PRN IVP Nausea & Vomiting 05/23/19 18:30 06/22/19 18:29 Morphine Sulfate (Morphine Sulfate) 1 mg Q4H PRN IVP pain scale 1-3 05/23/19 18:30 05/30/19 18:29 Morphine Sulfate (Morphine Sulfate) 2 mg Q4H PRN IVP pain scale 4-6 05/23/19 18:30 05/30/19 18:29 05/30/19 09:35 Morphine Sulfate (Morphine Sulfate) 4 mg Q4H PRN IVP pain score 7-10 05/23/19 18:30 05/30/19 18:29 05/23/19 20:29 Ondansetron HCl (Zofran) 4 mg Q6H PRN IVP Nausea & Vomiting 05/19/19 05:15 06/18/19 05:14 05/27/19 21:18 Bandar Miguel MD May 30, 2019 11:12"
[2019-05-30] MEDS ORDERED: HYDROcodone/Acetamin 5/325 tab ORAL PRN (11:30)
[2019-05-30] MEDS ORDERED: Milk of Magnesia 30ml Ud ORAL SCH (11:30)
[2019-05-30 12:00] VITALS: BP 132/79
--- NOTE | 2019-05-30 14:28 | NUR ---
RD ASSESSMENT & RECOMMENDATIONS SEE CARE ACTIVITY FOR COMPLETE ASSESSMENT DAILY ESTIMATED NEEDS: Needs based on Surgery/ 55kg 25-35 kcals/kg 3244-2434 total kcals 1-2 g protein/kg 55-110 g total protein 25-30 mL/kg 7300-7348 total fluid mLs NUTRITION DIAGNOSIS: Altered GI function R/T high grade SBO as evidenced by s/p ex lap, lysis of adhesions, small bowel resection, diet now advanced to Low Na. bowel movement this morning. (CURRENT DIET: now Low NA diet) PO DIET RECOMMENDATIONS-->> Advance diet per surgeon -> rec Regular diet ADDITIONAL RECOMMENDATIONS: * Monitor CLD status, ability for diet advancement -> Now LOW NA * Monitor lytes, replete as needed -> Na is low and trending down * Calibrated bedscale wt or standing wt for accurate CBW * Ensure Enlive w/ advanced diet
--- NOTE | 2019-05-30 15:00 | NUR ---
NURSE NOTES: Pt ate well for breakfast, tolerated well . No signs of nausea or vomiting.Ate minimal for lunch, stated she does not eat dark meat substitute refused. Requested son number , number provided. Pt assisted to restroom x3 incontinence of urine x 2, and bowel x 1. Breathing room air . No complaints of pain
[2019-05-30 16:00] VITALS: BP 136/89
[2019-05-30] MEDS: Docusate 100mg cap ORAL SCH (18:00)
--- NOTE | 2019-05-30 19:39 | NUR ---
HAND-OFF: Report given to Carolina made aware to have caution with pt 2 intermittant confusion, attempting to get out of bed.
--- NOTE | 2019-05-30 19:39 | NUR ---
NURSE NOTES:Patient received from Brinda Blackburn Patient A/A OX3 with episode of confusion reality orientation to patient .Patient RISHABH g#22 H/L Patent and intact . patient Mid abdomen with xi open to air.Patient denies any pain at this time . No s/s of distress noted .patient encourage to IS . patient verbalized her understanding. Patient family at bedside .safety / fall precaution . call light within reach . bed in low position at all times . will continue to monitor.
[2019-05-30 20:00] VITALS: BP 132/82
[2019-05-31] VITALS: BP 127/84
[2019-05-31 04:00] VITALS: BP 128/68
--- NOTE | 2019-05-31 07:05 | NUR ---
HAND-OFF: Report given to [].
--- NOTE | 2019-05-31 07:15 | NUR ---
NURSE NOTES:BEDSIDE ROUNDS WITH LUIS KASPER,PT.EATING BREAKFAST,ROOM AIR,HEPLOCK INTACT.A/OX2,STATED SHES IN CEDARS.REORIENTED TO PLACE,ABDOMINAL INCISION C/D/I WITH KENRICK OPEN TO AIR.NO C/O PAIN,HAD BM THIS MORNING.WILL CONTINUE PLAN OF CARE.
[2019-05-31] MEDS: Docusate 100mg cap ORAL SCH ×2 (07:57→17:32)
[2019-05-31] MEDS: Heparin 5000 units/ml inj SUBQ SCH ×2 (08:00→20:54)
[2019-05-31 08:01] VITALS: BP 132/71
--- NOTE | 2019-05-31 08:28 | General Progress Note ---
Assessment/Plan Assessment/Plan: IMPRESSION small bowel obstruction hyponatremia colon ca UTI, treated hyponatremia post op lysis of adhesions and small bowel resection protein calorie malnutrition PLAN advance diet per surgery and GI overall stable hope to dc impression, plan, and exam edited and reviewed in detail care discussed with RN Subjective Allergies: Coded Allergies: IODINE (Verified Allergy, Unknown, 05/18/19) Subjective care noted and reviewed post op stable Objective Last 24 Hour Vital Signs Date Time Temp Pulse Resp B/P (MAP) Pulse Ox O2 Delivery O2 Flow Rate FiO2 05/31/19 08:01 97.7 74 18 132/71 (91) 97 05/31/19 07:15 Room Air 05/31/19 04:00 97.7 86 19 128/68 (88) 96 05/31/19 00:00 98.3 86 18 127/84 (98) 100 05/30/19 20:40 Room Air 05/30/19 20:00 98.1 93 19 132/82 (99) 99 05/30/19 16:00 97.0 18 136/89 (105) 97 05/30/19 12:00 97.6 96 20 132/79 (96) 99 05/30/19 09:00 Room Air Intake and Output 05/30/19 05/31/19 19:00 07:00 Intake Total 356 ml 880 ml Output Total 850 ml Balance 356 ml 30 ml Intake Oral 356 ml 880 ml Output Urine Total 850 ml # Voids 1 4 # Bowel Movements 1 1 Height (Feet): 5 Height (Inches): 7.00 Weight (Pounds): 121 Objective WDWN NAD clear breath sounds bilaterally without rhonchi or wheeze [id number] without MRG NABS no CCE nonfocal Gagandeep Li MD May 31, 2019 08:28
--- NOTE | 2019-05-31 08:40 | NUR ---
NURSE NOTES:AMBULATED WITH PT.WITH TOLERANCE OF 50 FT.
--- NOTE | 2019-05-31 09:08 | Nephrology Progress Note ---
Assessment/Plan Assessment/Plan: A/P 1) YANELI- resolved. 2) Hyponatremia- Na 128- 132. OK for DC from renal point. Am labs ordered for tomorrow - labs c/w SIADH. Urine OSM 512 and low UA and serum OSM 3) SBO- high grade SBO, s/p ex lap, OSMAR, and SB resection. - exploratory laparotomy extensive lysis of adhesions small bowel resection 4) Hypokalemia- replace prn Subjective Date patient seen: May 31, 2019 Time patient seen: 09:07 ROS Limited/Unobtainable: No Allergies: Coded Allergies: IODINE (Verified Allergy, Unknown, 05/18/19) Subjective Patient resting and in distress Objective Last 24 Hour Vital Signs Date Time Temp Pulse Resp B/P (MAP) Pulse Ox O2 Delivery O2 Flow Rate FiO2 05/31/19 08:01 97.7 74 18 132/71 (91) 97 05/31/19 07:15 Room Air 05/31/19 04:00 97.7 86 19 128/68 (88) 96 05/31/19 00:00 98.3 86 18 127/84 (98) 100 05/30/19 20:40 Room Air 05/30/19 20:00 98.1 93 19 132/82 (99) 99 05/30/19 16:00 97.0 18 136/89 (105) 97 05/30/19 12:00 97.6 96 20 132/79 (96) 99 Intake and Output 05/30/19 05/31/19 19:00 07:00 Intake Total 356 ml 880 ml Output Total 850 ml Balance 356 ml 30 ml Intake Oral 356 ml 880 ml Output Urine Total 850 ml # Voids 1 4 # Bowel Movements 1 1 Height (Feet): 5 Height (Inches): 7.00 Weight (Pounds): 121 General Appearance: no apparent distress EENT: normal ENT inspection Neck: normal alignment, supple Cardiovascular: normal rate, regular rhythm Respiratory/Chest: lungs clear, normal breath sounds Abdomen: non tender, soft Edema: no edema noted Arm (L), no edema noted Arm (R), no edema noted Leg (L), no edema noted Leg (R), no edema noted Pedal (L), no edema noted Pedal (R), no edema noted Generalized Redd Hanson MD May 31, 2019 09:08
[2019-05-31 11:49] VITALS: BP 158/90
--- NOTE | 2019-05-31 14:09 | NUR ---
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
--- NOTE | 2019-05-31 14:46 | NUR ---
*-* INSURANCE *-* UPDATED CLINICALS HAVE BEEN FAXED TO: [employer] PLEASE FAX THE REVIEW AND CLINICAL TO FX: [phone] PH: [phone]
--- NOTE | 2019-05-31 15:17 | Surgery Progress Note ---
Surgery Progress Note Subjective Procedure Performed exploratory laparotomy extensive lysis of adhesions small bowel resection Symptoms: improved, tolerating diet, passing flatus, BM, pain decreased Objective Last 24 Hour Vital Signs Date Time Temp Pulse Resp B/P (MAP) Pulse Ox O2 Delivery O2 Flow Rate FiO2 05/31/19 11:49 98.2 100 20 158/90 (112) 95 05/31/19 08:01 97.7 74 18 132/71 (91) 97 05/31/19 07:15 Room Air 05/31/19 04:00 97.7 86 19 128/68 (88) 96 05/31/19 00:00 98.3 86 18 127/84 (98) 100 05/30/19 20:40 Room Air 05/30/19 20:00 98.1 93 19 132/82 (99) 99 05/30/19 16:00 97.0 18 136/89 (105) 97 I&O Intake and Output 05/30/19 05/31/19 19:00 07:00 Intake Total 356 ml 880 ml Output Total 850 ml Balance 356 ml 30 ml Intake Oral 356 ml 880 ml Output Urine Total 850 ml # Voids 1 4 # Bowel Movements 1 1 Cardiovascular: RSR Respiratory: clear Abdomen: soft, flat, non-tender, present bowel sounds Extremities: no edema, no tenderness, no cyanosis Plan Problems: (1) Hyponatremia (2) Renal insufficiency (3) UTI (urinary tract infection) (4) Small bowel obstruction Assessment & Plan: s/p ex lap for sbo recovering diet as tolerated ambulate and out of bed d/c planning Rx written (5) Abdominal pain Javier Urbina May 31, 2019 15:17
--- NOTE | 2019-05-31 15:37 | NUR ---
NURSE NOTES:DR. CL CLARKE AWARE RE:PT.HAD MODERATE LOOSE STOOL.D/C PLAN TOMORROW.
--- NOTE | 2019-05-31 15:41 | Diagnostic Imaging Report ---
Indication: Abdominal pain, status post surgery Technique: Supine view of the abdomen Comparison: 05/22/2019 Findings: Interim removal of previously demonstrated nasogastric tube. There is again demonstrated dilatation of small bowel loops, which are presumably proximal small bowel based on recent contrast small bowel study. Degree of dilatation is similar to the previous exam. There are now midline skin xi. Bilateral hip hardware and spinal fusion hardware is again demonstrated. Impression: Persistent dilatation of small bowel loops. Given history of recent surgery for small bowel obstruction, findings most likely represent postoperative ileus, but the possibility of recurrent small bowel obstruction should also be considered Findings discussed by phone with Dr. Urbina at the time of interpretation
[2019-05-31] MEDS ORDERED: Milk of Magnesia 30ml Ud ORAL SCH (15:45)
--- NOTE | 2019-05-31 15:52 | NUR ---
NURSE NOTES:SPOKE TO PT.SON(KISHA)RE:RX AND D/C PLAN TOMORROW,STATED HE WANTS HIS MOM TO GO TO REHAB.BECAUSE PT.NEEDS ASSISTANCE IN WALKING ANG GOING TO BATHROOM AND NO ONE CAN HELP HER.INFORMED JUAN DIEGO I WILL SUGGEST TO MD.CHARGE NURSE(IRASEMA)AWARE.
[2019-05-31 16:12] VITALS: BP 156/87
--- NOTE | 2019-05-31 16:22 | NUR ---
NURSE NOTES:PT.SON(KISHA) [facility](KRISTINA)INFORMED BY IRASEMA CADET.
--- NOTE | 2019-05-31 16:35 | NUR ---
[phone] F [phone]. WILL FOLLOW UP.
--- NOTE | 2019-05-31 18:34 | NUR ---
NURSE NOTES:pt. had another loose brownish stool.moderate in amnt.kept clean and dry.
--- NOTE | 2019-05-31 19:22 | NUR ---
HAND-OFF: Report given to RAISSA CADET.PT.STABLE.
[2019-05-31 20:00] VITALS: BP 150/74
--- NOTE | 2019-05-31 20:07 | NUR ---
NURSE NOTES: Received patient comfortably sleeping without any complaints.
--- NOTE | 2019-05-31 21:29 | General Progress Note ---
Assessment/Plan Assessment/Plan: Assessment - high grade SBO, s/p ex lap, OSMAR, and SB resection - doing well Recommendations - IVF - OOB - post op care - follow labs - d/c if OK with surgery Subjective Allergies: Coded Allergies: IODINE (Verified Allergy, Unknown, 05/18/19) Subjective above noted s/p OSMAR and SB resection (tolerating PO Objective Last 24 Hour Vital Signs Date Time Temp Pulse Resp B/P (MAP) Pulse Ox O2 Delivery O2 Flow Rate FiO2 05/31/19 21:16 Room Air 05/31/19 20:00 98.3 80 18 150/74 (99) 95 05/31/19 16:12 97.3 83 18 156/87 (110) 99 05/31/19 11:49 98.2 100 20 158/90 (112) 95 05/31/19 08:01 97.7 74 18 132/71 (91) 97 05/31/19 07:15 Room Air 05/31/19 04:00 97.7 86 19 128/68 (88) 96 05/31/19 00:00 98.3 86 18 127/84 (98) 100 Intake and Output 05/30/19 05/31/19 18:59 06:59 Intake Total 356 ml 880 ml Output Total 850 ml Balance 356 ml 30 ml Intake Oral 356 ml 880 ml Output Urine Total 850 ml # Voids 1 4 # Bowel Movements 1 1 Height (Feet): 5 Height (Inches): 7.00 Weight (Pounds): 121 Objective WDWN AA woman NCAT, (+) NGT supple CTA RRR abd soft ND, (+) midline incision and dressing ext: no edema Neuo: non focal Xander Tavarez MD May 31, 2019 21:29
[2019-06-01 04:00] VITALS: BP 144/78
--- NOTE | 2019-06-01 07:22 | NUR ---
HAND-OFF: Report given to Mira Berry RN.
[2019-06-01 07:45] LABS: ANION GAP 10 mmol/L (5-15); BLOOD UREA NITROGEN 7 mg/dL (7-18); CALCIUM 8.9 MG/DL (8.5-10.1); CARBON DIOXIDE 22 MMOL/L (21-32); CHLORIDE 100 MMOL/L (98-107); CREATININE 0.9 MG/DL (0.55-1.30); POTASSIUM 4.3 MMOL/L (3.5-5.1); SODIUM 132 MMOL/L (136-145)
--- NOTE | 2019-06-01 07:46 | NUR ---
NURSE NOTES: Pt received awake, requires to be re-orientated to time and place. Has intermittent periods of confusion. Call light is in reach. Bed in safe position , current paln of care will be followed
[2019-06-01 08:00] VITALS: BP 152/96
--- NOTE | 2019-06-01 08:25 | NUR ---
RADIOLOGY: SEGUNDO COMPLETED 814AM -NF
--- NOTE | 2019-06-01 08:47 | Nephrology Progress Note ---
Assessment/Plan Assessment/Plan: A/P 1) YANELI- resolved. 2) Hyponatremia- Na 132. OK for DC from renal point. - labs c/w SIADH. Urine OSM 512 and low UA and serum OSM 3) SBO- high grade SBO, s/p ex lap, OSMAR, and SB resection. - exploratory laparotomy, extensive lysis of adhesions, small bowel resection 4) Hypokalemia- corrected Subjective Date patient seen: Jun 01, 2019 Time patient seen: 08:46 ROS Limited/Unobtainable: No Allergies: Coded Allergies: IODINE (Verified Allergy, Unknown, 05/18/19) Subjective Patient ambulating in rose Objective Last 24 Hour Vital Signs Date Time Temp Pulse Resp B/P (MAP) Pulse Ox O2 Delivery O2 Flow Rate FiO2 06/01/19 04:00 98.6 82 16 144/78 (100) 95 05/31/19 21:16 Room Air 05/31/19 20:00 98.3 80 18 150/74 (99) 95 05/31/19 16:12 97.3 83 18 156/87 (110) 99 05/31/19 11:49 98.2 100 20 158/90 (112) 95 Intake and Output 05/31/19 06/01/19 19:00 07:00 Intake Total 600 ml 220 ml Balance 600 ml 220 ml Intake Oral 600 ml 220 ml # Voids 2 3 # Bowel Movements 1 1 Laboratory Tests 06/01/19 05:36: Sodium Level 132L, Potassium Level 4.3, Chloride Level 100, Carbon Dioxide Level 22, Anion Gap 10, Blood Urea Nitrogen 7, Creatinine 0.9, Estimat Glomerular Filtration Rate , Glucose Level 80, Calcium Level 8.9 Height (Feet): 5 Height (Inches): 7.00 Weight (Pounds): 114 Redd Hanson MD Jun 01, 2019 08:47
[2019-06-01] MEDS: Docusate 100mg cap ORAL SCH ×2 (08:49→17:31)
[2019-06-01] MEDS: Heparin 5000 units/ml inj SUBQ SCH ×2 (08:56→20:34)
--- NOTE | 2019-06-01 10:19 | General Progress Note ---
Assessment/Plan Assessment/Plan: IMPRESSION small bowel obstruction hyponatremia colon ca UTI, treated hyponatremia post op lysis of adhesions and small bowel resection protein calorie malnutrition PLAN stable for dc await snf acceptance tolerating diet impression, plan, and exam edited and reviewed in detail care discussed with RN Subjective Allergies: Coded Allergies: IODINE (Verified Allergy, Unknown, 05/18/19) Subjective care noted and reviewed post op stable son wants snf Objective Last 24 Hour Vital Signs Date Time Temp Pulse Resp B/P (MAP) Pulse Ox O2 Delivery O2 Flow Rate FiO2 06/01/19 04:00 98.6 82 16 144/78 (100) 95 05/31/19 21:16 Room Air 05/31/19 20:00 98.3 80 18 150/74 (99) 95 05/31/19 16:12 97.3 83 18 156/87 (110) 99 05/31/19 11:49 98.2 100 20 158/90 (112) 95 Intake and Output 05/31/19 06/01/19 19:00 07:00 Intake Total 600 ml 220 ml Balance 600 ml 220 ml Intake Oral 600 ml 220 ml # Voids 2 3 # Bowel Movements 1 1 Laboratory Tests 06/01/19 05:36: Sodium Level 132L, Potassium Level 4.3, Chloride Level 100, Carbon Dioxide Level 22, Anion Gap 10, Blood Urea Nitrogen 7, Creatinine 0.9, Estimat Glomerular Filtration Rate , Glucose Level 80, Calcium Level 8.9 Height (Feet): 5 Height (Inches): 7.00 Weight (Pounds): 114 Objective WDWN NAD clear breath sounds bilaterally without rhonchi or wheeze [id number] without MRG NABS no CCE nonfocal Gagandeep Li MD Jun 01, 2019 10:19
--- NOTE | 2019-06-01 10:49 | NUR ---
NURSE NOTES: Pt up with therapy sitting up in chair, requested to return to bed. Complete linen change. Refused shower, clean clothes provided. Refused to wear hospital gown . Will be monitored, for safety.
--- NOTE | 2019-06-01 11:01 | NUR ---
NURSE NOTES: Dr Myrick phoned to report elevated blood pressure , for several days. Baseline systolic blood pressure is above 150. gave orders for Norvasc 5 mg po qd
--- NOTE | 2019-06-01 11:33 | Infectious Diseases Prog Note ---
"Assessment/Plan Assessment/Plan antibiotics : none A 1. klebsiella UTI s/p rx 2. SBO s/p resection | lysis of adhesions 3. colon cancer 4. renal failure resolved P 1. observe off antibiotics Subjective Constitutional: Denies: fever, chills Respiratory: Denies: shortness of breath, dry cough Gastrointestinal/Abdominal: Denies: nausea, vomiting, diarrhea Musculoskeletal: Denies: pain Allergies: Coded Allergies: IODINE (Verified Allergy, Unknown, 05/18/19) Objective Vital Signs Last 24 Hour Vital Signs Date Time Temp Pulse Resp B/P (MAP) Pulse Ox O2 Delivery O2 Flow Rate FiO2 06/01/19 09:00 Room Air 06/01/19 08:00 97.7 152/96 (114) 06/01/19 04:00 98.6 82 16 144/78 (100) 95 05/31/19 21:16 Room Air 05/31/19 20:00 98.3 80 18 150/74 (99) 95 05/31/19 16:12 97.3 83 18 156/87 (110) 99 05/31/19 11:49 98.2 100 20 158/90 (112) 95 Height (Feet): 5 Height (Inches): 7.00 Weight (Pounds): 114 Respiratory/Chest: lungs clear Cardiovascular: normal rate, regular rhythm, no gallop/murmur Abdomen: soft, non tender, other - wound clean Extremities: no edema Laboratory Tests Test 06/01/19 05:36 Sodium Level 132 MMOL/L (136-145) L Potassium Level 4.3 MMOL/L (3.5-5.1) Chloride Level 100 MMOL/L (98-107) Carbon Dioxide Level 22 MMOL/L (21-32) Anion Gap 10 mmol/L (5-15) Blood Urea Nitrogen 7 mg/dL (7-18) Creatinine 0.9 MG/DL (0.55-1.30) Estimat Glomerular Filtration Rate mL/min (>60) Glucose Level 80 MG/DL (74-106) Calcium Level 8.9 MG/DL (8.5-10.1) Current Medications Medications (Trade) Dose Ordered Sig/Willian Route PRN Reason Start Time Stop Time Status Last Admin Dose Admin Acetaminophen (Tylenol) 650 mg Q4H PRN ORAL FEVER 05/23/19 18:46 06/22/19 18:45 Acetaminophen/ Hydrocodone Bitart ([place] 5/325) 1 tab Q4H PRN ORAL Moderate Pain (Pain Scale 4-6) 05/30/19 11:30 06/06/19 11:29 06/01/19 08:55 Al Hydroxide/Mg Hydroxide (Mylanta) 15 ml Q6H PRN ORAL DYSPEPSIA 05/23/19 18:46 06/22/19 18:45 Amlodipine Besylate (Norvasc) 5 mg DAILY ORAL 06/01/19 11:15 07/01/19 11:14 Diphenhydramine HCl (Benadryl) 12.5 mg Q6H PRN IVP Itching/Pruritis 05/23/19 18:30 06/22/19 18:29 Docusate Sodium (Colace) 100 mg TWICE A DAY ORAL 05/30/19 18:00 06/29/19 17:59 05/31/19 07:57 Heparin Sodium (Porcine) (Heparin 5000 units/ml) 5,000 units EVERY 12 HOURS SUBQ 05/24/19 09:00 06/23/19 08:59 06/01/19 08:56 Metoclopramide HCl (Reglan) 10 mg Q6H PRN IVP Nausea & Vomiting 05/23/19 18:30 06/22/19 18:29 Ondansetron HCl (Zofran) 4 mg Q6H PRN IVP Nausea & Vomiting 05/19/19 05:15 06/18/19 05:14 05/27/19 21:18 Bandar Miguel MD Jun 01, 2019 11:33"
[2019-06-01 12:00] VITALS: BP 134/78
--- NOTE | 2019-06-01 13:28 | NUR ---
*-* INSURANCE *-* UPDATED CLINICALS HAVE BEEN FAXED TO: [employer] PLEASE FAX THE REVIEW AND CLINICAL TO FX: [phone] PH: [phone]
--- NOTE | 2019-06-01 14:02 | NUR ---
ARCHITECTURAL MODEL MAKER NOTES FAXED REFERRAL TO [facility]. PER SONS REQUEST BECAUSE [facility] UNABLE TO ACCEPT [employer] [facility].
--- NOTE | 2019-06-01 14:55 | Diagnostic Imaging Report ---
Indication: Abdominal pain Comparison: 05/29/2019 Single view of the abdomen obtained Findings: Distended small bowel again noted within the abdomen stable to slightly improved since the last study. Correlate clinically. Skin xi again noted projected over the lower abdomen and back. Multilevel lower lumbar hardware for fusion noted. Bilateral hip prostheses noted. IMPRESSION: Some improvement in degree of small bowel dilatation has likely taken place. This may be due to improving ileus. Correlate clinically.
--- NOTE | 2019-06-01 15:12 | NUR ---
NURSE NOTES: Pt requires assistance with ADLS , 2 to incontinence, of urine and bm. Call light is in reach, bed in safe position.
--- NOTE | 2019-06-01 15:14 | NUR ---
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 This may be due to improving ileus IS:NORVASC 5mg HEPARIN SUBQ [place] 5/325 1tab PLAN: OBSERVE OFF ABX 3E MED/SURG STATUS
[2019-06-01 16:00] VITALS: BP 132/71
--- NOTE | 2019-06-01 16:12 | General Progress Note ---
Progress Note Progress Note improved passing flatus having BM tolerating regular diet labs improved exam benign KUB noted xi removed steri-strips placed thank you okay to d/c home outpatient follow up Javier Urbina Jun 01, 2019 16:12
--- NOTE | 2019-06-01 18:38 | NUR ---
NURSE NOTES: Pt has no pending labs for tomorrow. Required , redirection multiple times periods of confusion. No BM this shift. Dr Johnson cleared pt for discharge
--- NOTE | 2019-06-01 19:30 | NUR ---
NURSE NOTES: Receive a report from CHICHI Parry. Done rounds. Pt is in bed awake with forgetfulness. No acute distress noted. Willy removal site is clear without bleeding or infection signs and on steri-strips. Denies pain. Will continue to monitor.
--- NOTE | 2019-06-01 19:33 | NUR ---
NURSE NOTES: Pt currently in bed bed repositioned through out shift. All anticipated needs require to be met.
--- NOTE | 2019-06-01 19:34 | NUR ---
HAND-OFF: Report given to Gho RN made aware of pt intermittant confusion, and attempts to exit bed.
[2019-06-01 20:00] VITALS: BP 125/72
--- NOTE | 2019-06-01 21:00 | NUR ---
NURSE NOTES: Pt is in bed and confusion. Provide orientation. Need maximum help to go to bathroom d/t severe general weakness and unsteady gait. Reinforce fall precautions. Pt is on yellow gown and yellow socks. Bed is lowest and locked with bed alarm. Call light within reach. Provide frequent rounds for anticipated needs. IV H/L site intact without infiltration. Denies any pain. SCDs on. Will continue to monitor.
--- NOTE | 2019-06-01 22:48 | General Progress Note ---
Assessment/Plan Assessment/Plan: Assessment - high grade SBO, s/p ex lap, OSMAR, and SB resection - doing well Recommendations - IVF - OOB - post op care - follow labs - d/c if OK with surgery Subjective Allergies: Coded Allergies: IODINE (Verified Allergy, Unknown, 05/18/19) Subjective above noted s/p OSMAR and SB resection tolerating PO Objective Last 24 Hour Vital Signs Date Time Temp Pulse Resp B/P (MAP) Pulse Ox O2 Delivery O2 Flow Rate FiO2 06/01/19 16:00 97.8 74 16 132/71 (91) 06/01/19 12:12 76 134/76 06/01/19 12:00 97.7 84 18 134/78 (96) 97 06/01/19 09:00 Room Air 06/01/19 08:00 97.7 152/96 (114) 06/01/19 04:00 98.6 82 16 144/78 (100) 95 Intake and Output 05/31/19 06/01/19 18:59 06:59 Intake Total 600 ml 220 ml Balance 600 ml 220 ml Intake Oral 600 ml 220 ml # Voids 2 3 # Bowel Movements 1 1 Laboratory Tests 06/01/19 05:36: Sodium Level 132L, Potassium Level 4.3, Chloride Level 100, Carbon Dioxide Level 22, Anion Gap 10, Blood Urea Nitrogen 7, Creatinine 0.9, Estimat Glomerular Filtration Rate , Glucose Level 80, Calcium Level 8.9 Height (Feet): 5 Height (Inches): 7.00 Weight (Pounds): 114 Objective WDWN AA woman NCAT, (+) NGT supple CTA RRR abd soft ND, (+) midline incision and dressing ext: no edema Neuo: non focal Xander Tavarez MD Jun 01, 2019 22:48
[2019-06-02] VITALS: BP 131/79
[2019-06-02 04:00] VITALS: BP 123/71
--- NOTE | 2019-06-02 07:25 | NUR ---
NURSE NOTES: Report received from Cleopatrao RN, rounds made. Patient sleeping in semi-fowlers position in bed. No distress on RA. RISHABH heplock intact. Bilateral SCDs on. Abdominal surgical site, steri strips CDI. Call light in reach, bed in lowest position, will continue to monitor.
--- NOTE | 2019-06-02 07:30 | NUR ---
HAND-OFF: Report given to CHICHI Barron. Done rounds. Pt is asleep.
[2019-06-02 08:00] VITALS: BP 123/72
--- NOTE | 2019-06-02 08:08 | Nephrology Progress Note ---
Assessment/Plan Assessment/Plan: A/P 1) YANELI- resolved. 2) Hyponatremia- Na 132. OK for DC from renal point. - Check BMP 3 x week - labs c/w SIADH. Urine OSM 512 and low UA and serum OSM 3) SBO- high grade SBO, s/p ex lap, OSMAR, and SB resection. - exploratory laparotomy, extensive lysis of adhesions, small bowel resection - had BM and eating solid food 4) Hypokalemia- corrected Subjective Date patient seen: Jun 02, 2019 Time patient seen: 08:07 ROS Limited/Unobtainable: No Allergies: Coded Allergies: IODINE (Verified Allergy, Unknown, 05/18/19) Subjective Patient eating solid food and had BM Objective Last 24 Hour Vital Signs Date Time Temp Pulse Resp B/P (MAP) Pulse Ox O2 Delivery O2 Flow Rate FiO2 06/02/19 04:00 98.1 87 19 123/71 (88) 95 06/02/19 00:00 97.9 88 18 131/79 (96) 96 06/01/19 21:00 Room Air 06/01/19 20:00 97.5 87 18 125/72 (89) 95 87 06/01/19 16:00 97.8 74 16 132/71 (91) 06/01/19 12:12 76 134/76 06/01/19 12:00 97.7 84 18 134/78 (96) 97 06/01/19 09:00 Room Air Intake and Output 06/01/19 06/02/19 19:00 07:00 # Voids 3 Height (Feet): 5 Height (Inches): 7.00 Weight (Pounds): 114 General Appearance: no apparent distress EENT: normal ENT inspection Neck: normal alignment, supple Cardiovascular: normal rate, regular rhythm Respiratory/Chest: lungs clear, normal breath sounds Abdomen: non tender, soft Edema: no edema noted Arm (L), no edema noted Arm (R), no edema noted Leg (L), no edema noted Leg (R), no edema noted Pedal (L), no edema noted Pedal (R), no edema noted Generalized Redd Hanson MD Jun 02, 2019 08:08
[2019-06-02] MEDS: Docusate 100mg cap ORAL SCH ×3 (09:00→18:00)
--- NOTE | 2019-06-02 09:10 | General Progress Note ---
Assessment/Plan Assessment/Plan: IMPRESSION small bowel obstruction hyponatremia colon ca UTI, treated hyponatremia post op lysis of adhesions and small bowel resection protein calorie malnutrition PLAN stable for dc await snf acceptance tolerating diet no other changes impression, plan, and exam edited and reviewed in detail care discussed with RN Subjective Allergies: Coded Allergies: IODINE (Verified Allergy, Unknown, 05/18/19) Subjective care noted and reviewed post op stable son wants snf Objective Last 24 Hour Vital Signs Date Time Temp Pulse Resp B/P (MAP) Pulse Ox O2 Delivery O2 Flow Rate FiO2 06/02/19 04:00 98.1 87 19 123/71 (88) 95 06/02/19 00:00 97.9 88 18 131/79 (96) 96 06/01/19 21:00 Room Air 06/01/19 20:00 97.5 87 18 125/72 (89) 95 87 06/01/19 16:00 97.8 74 16 132/71 (91) 06/01/19 12:12 76 134/76 06/01/19 12:00 97.7 84 18 134/78 (96) 97 Intake and Output 06/01/19 06/02/19 19:00 07:00 # Voids 3 Height (Feet): 5 Height (Inches): 7.00 Weight (Pounds): 114 Objective WDWN NAD clear breath sounds bilaterally without rhonchi or wheeze [id number] without MRG NABS no CCE nonfocal Gagandeep iL MD Jun 02, 2019 09:10
[2019-06-02] MEDS: Heparin 5000 units/ml inj SUBQ SCH (09:43)
[2019-06-02 12:00] VITALS: BP 114/58
--- NOTE | 2019-06-02 12:20 | Infectious Diseases Prog Note ---
Assessment/Plan Assessment/Plan IMPRESSION: 1. Klebsiella urinary tract infection, treated 2. small bowel obstruction. -s/p laparotomy, lysis of adhesions & bowel resection 3. Hyponatremia. 4. History of colon cancer. 5. Acute renal failure that is resolved. 6. Hypokalemia RECOMMENDATIONS: Observe off antibiotic Waiting for placement Subjective ROS Limited/Unobtainable: No Constitutional: Reports: no symptoms Respiratory: Reports: no symptoms Cardiovascular: Reports: no symptoms Gastrointestinal/Abdominal: Reports: no symptoms Allergies: Coded Allergies: IODINE (Verified Allergy, Unknown, 05/18/19) Objective Vital Signs Last 24 Hour Vital Signs Date Time Temp Pulse Resp B/P (MAP) Pulse Ox O2 Delivery O2 Flow Rate FiO2 06/02/19 12:00 97.8 91 20 114/58 (76) 98 06/02/19 09:41 84 123/72 06/02/19 09:00 Room Air 06/02/19 08:00 97.8 84 20 123/72 (89) 96 06/02/19 04:00 98.1 87 19 123/71 (88) 95 06/02/19 00:00 97.9 88 18 131/79 (96) 96 06/01/19 21:00 Room Air 06/01/19 20:00 97.5 87 18 125/72 (89) 95 87 06/01/19 16:00 97.8 74 16 132/71 (91) Height (Feet): 5 Height (Inches): 7.00 Weight (Pounds): 114 HEENT: mucous membranes moist Respiratory/Chest: lungs clear Cardiovascular: normal rate Abdomen: soft, non tender, other - surgical wound healing well Extremities: no edema Neurologic/Psychiatric: alert, oriented x 3, responsive Current Medications Medications (Trade) Dose Ordered Sig/Willian Route PRN Reason Start Time Stop Time Status Last Admin Dose Admin Acetaminophen (Tylenol) 650 mg Q4H PRN ORAL FEVER 05/23/19 18:46 06/22/19 18:45 Acetaminophen/ Hydrocodone Bitart ([place] Aqua 5/325) 1 tab Q4H PRN ORAL Moderate Pain (Pain Scale 4-6) 05/30/19 11:30 06/06/19 11:29 06/01/19 08:55 Al Hydroxide/Mg Hydroxide (Mylanta) 15 ml Q6H PRN ORAL DYSPEPSIA 05/23/19 18:46 8/7/19 18:45 Amlodipine Besylate (Norvasc) 5 mg DAILY ORAL 06/01/19 11:15 07/01/19 11:14 06/02/19 09:41 Diphenhydramine HCl (Benadryl) 12.5 mg Q6H PRN IVP Itching/Pruritis 05/23/19 18:30 06/22/19 18:29 Docusate Sodium (Colace) 100 mg TWICE A DAY ORAL 05/30/19 18:00 06/29/19 17:59 05/31/19 07:57 Heparin Sodium (Porcine) (Heparin 5000 units/ml) 5,000 units EVERY 12 HOURS SUBQ 05/24/19 09:00 06/23/19 08:59 06/02/19 09:43 Metoclopramide HCl (Reglan) 10 mg Q6H PRN IVP Nausea & Vomiting 05/23/19 18:30 06/22/19 18:29 Ondansetron HCl (Zofran) 4 mg Q6H PRN IVP Nausea & Vomiting 05/19/19 05:15 06/18/19 05:14 05/27/19 21:18 David Castellanos MD Jun 02, 2019 12:20
--- NOTE | 2019-06-02 15:31 | NUR ---
P.T WEEKLY PROGRESS NOTES: PATIENT IS IMPROVING SLOW HOWEVER STEADY IN HER OVERALL FUNCTIONAL MOBILITIES. NO C/O MAJOR PAIN DURING THIS PAST PAST WEEK OF THERAPY SESSION. PATIENT CURRENTLY SBA/CGA X 1 FOR BED MOBILITIES AND TRANSFER ACTIVITIES. PATIENT ABLE TO AMBULATE AND TOLERATE DISTANCE OF 100-130 FEET USING THE FWW SBA/CGA X 1. PATIENT CONTINUE TO REQUIRE VERBAL CUES IN GIVING EMPHASIS ON SAFETY AWARENESS WITH MOVEMENT TRANSITION PATIENT TENDS TO FORGET PROPER TRANSFER MOBILITY TECHNIQUE. WILL CONTINUE WITH POC WITH PROGRESSION OF ACTIVITIES. RECOMMEND SNF AT D/C.
--- NOTE | 2019-06-02 15:47 | Surgery Progress Note ---
Surgery Progress Note Subjective Procedure Performed exploratory laparotomy extensive lysis of adhesions small bowel resection Additional Comments Patient seen and examined at bedside. Son was present and long discussion had about all operative and hospital care plans. Patient doing well tolerating diet no pain passing flatus and bowel movements. Objective Last 24 Hour Vital Signs Date Time Temp Pulse Resp B/P (MAP) Pulse Ox O2 Delivery O2 Flow Rate FiO2 06/02/19 12:00 97.8 91 20 114/58 (76) 98 06/02/19 09:41 84 123/72 06/02/19 09:00 Room Air 06/02/19 08:00 97.8 84 20 123/72 (89) 96 06/02/19 04:00 98.1 87 19 123/71 (88) 95 06/02/19 00:00 97.9 88 18 131/79 (96) 96 06/01/19 21:00 Room Air 06/01/19 20:00 97.5 87 18 125/72 (89) 95 87 06/01/19 16:00 97.8 74 16 132/71 (91) I&O Intake and Output 06/01/19 06/02/19 19:00 07:00 # Voids 3 Dressing: dry Wound: clean Cardiovascular: RSR Respiratory: clear Abdomen: soft, flat, non-tender, present bowel sounds, non-distended Extremities: no cyanosis Plan Problems: (1) Hyponatremia (2) Renal insufficiency (3) UTI (urinary tract infection) (4) Small bowel obstruction Assessment & Plan: s/p ex lap for sbo recovering diet as tolerated ambulate and out of bed d/c planning Rx written DC home (5) Abdominal pain Javier Urbina Jun 02, 2019 15:47
[2019-06-02 16:00] VITALS: BP 115/67
--- NOTE | 2019-06-02 16:03 | NUR ---
*-* INSURANCE *-* UPDATED CLINICALS HAVE BEEN FAXED TO: [employer] PLEASE FAX THE REVIEW AND CLINICAL TO FX: [phone] PH: [phone]
--- NOTE | 2019-06-02 16:25 | NUR ---
DISCHARGE PLANNED PT WILL DC TO: [facility] [address] SKILLED T [phone] FOR NURSE TO NURSE REPORT [facility] WILL SOFTWARE DEVELOPMENT ADVISOR AT [id number]
[2019-06-02] MEDS ORDERED: ACETAMINOPHEN325 M1 ORAL (16:42)
[2019-06-02] MEDS ORDERED: AMLODIPINE BESYL5 MG ORAL (16:44)
[2019-06-02] MEDS ORDERED: MYLANTA30 M1 ORAL (16:44)
[2019-06-02] MEDS ORDERED: DIPHENHYDRAMINE25 M1 ORAL (16:48)
[2019-06-02] MEDS ORDERED: DOCUSATE SODIU100 MG ORAL (16:50)
[2019-06-02] MEDS ORDERED: HYDROCODON-ACE1 EA15 ORAL (16:52)
--- NOTE | 2019-06-02 18:30 | NUR ---
NURSE NOTES: Report called to Ortega KASPER at [facility]. Phillip (son) at bedside, prescription x1 (Tylenol #3 and Colace) given to son/reviewed with son, verbalized understanding, belongings sent with patient/signed by son. IV heplock discontinued, no active bleeding. Report given to [facility] at 1810. Patient denies pain. Patient transferred via [facility] at 1830 in stable condition.
--- NOTE | 2019-06-02 21:55 | General Progress Note ---
Assessment/Plan Assessment/Plan: Assessment - high grade SBO, s/p ex lap, OSMAR, and SB resection - doing well Recommendations - IVF - OOB - post op care - follow labs - d/c today Subjective Allergies: Coded Allergies: IODINE (Verified Allergy, Unknown, 05/18/19) Subjective above noted s/p OSMAR and SB resection tolerating PO Objective Last 24 Hour Vital Signs Date Time Temp Pulse Resp B/P (MAP) Pulse Ox O2 Delivery O2 Flow Rate FiO2 06/02/19 16:00 97.7 85 20 115/67 (83) 96 06/02/19 12:00 97.8 91 20 114/58 (76) 98 06/02/19 09:41 84 123/72 06/02/19 09:00 Room Air 06/02/19 08:00 97.8 84 20 123/72 (89) 96 06/02/19 04:00 98.1 87 19 123/71 (88) 95 06/02/19 00:00 97.9 88 18 131/79 (96) 96 Intake and Output 06/01/19 06/02/19 19:00 07:00 # Voids 3 Height (Feet): 5 Height (Inches): 7.00 Weight (Pounds): 114 Objective WDWN AA woman NCAT, (+) NGT supple CTA RRR abd soft ND, (+) midline incision and dressing ext: no edema Neuo: non focal Xander Tavarez MD Jun 02, 2019 21:55
--- NOTE | 2019-06-03 14:15 | Discharge Summary ---
Discharge Summary Discharge Summary _ DATE OF ADMISSION: 05/19/2019 DATE OF DISCHARGE: 06/02/2019 DISCHARGED BY: Dr. Jorge Li CONSULTANTS: Dr. Xander Hanson BRIEF HOSPITAL COURSE: Patient is a 78-year-old female, with history of colon CA, presented to ED due to intermittent abdominal pain. Pain was waxing and waning, however was persistent. Symptoms were worsening over the past 2 days. She denied any passing blood in the stool. She denied any fever or chills. There was no dysuria. She had a history of colon CA that was diagnosed in 1999. On evaluation at the ED, vital signs were stable. Blood work did not show any leukocytosis. Hemoglobin and hematocrit were stable. Potassium was 3.2. Sodium 124 and chloride 87. Creatinine was elevated to 1.4. Troponin was negative. Urinalysis showed TNTC urine WBC, 2-4 urine RBC, +3 leukocyte esterase, negative nitrite, +2 blood, +1 ketones. EKG showed sinus rhythm with first-degree AV block with no acute changes. Chest x-ray did not show any acute disease. KUB showed findings consistent with small bowel obstruction. CT of the abdomen and pelvis also showed findings consistent with small bowel obstruction with perihepatic ascites and extensive postsurgical changes in the lumbar spine with burst fracture L1 vertebral body status post vertebroplasty, likely chronic. She was admitted for evaluation of bowel obstruction and hyponatremia/YANELI. Truck Spotter was consulted. Hyponatremia secondary to volume depletion. He was given IV hydration. He was given potassium replacement. Patient had an unknown baseline creatinine. Kidney function was monitored. She was placed on n.p.o. GI was consulted. Repeat KUB showed worsening obstruction. NG tube was inserted and was connected to suction. Surgeon was consulted. Patient was monitored and had serial imaging. Acute kidney injury resolved. Patient had low serum osmolality. Hyponatremia, possibly SIADH. Urine osmolality 512 and low UA and serum osmolality. Urine culture showed growth of Klebsiella. ID was consulted. He was given ceftriaxone. Patient still was not passing flatus or having bowel movements. Upper GI study with small bowel follow-through identified high-grade obstruction. She developed nausea followed by emesis. Decision was made to take patient to the OR for exploration. 05/23/2019, she underwent exploratory laparotomy with bowel resection and lysis of adhesions. Patient tolerated procedure well and was taken to postanesthetic care unit in stable condition. Head CT showed chronic age-related changes. Negative for acute intracranial bleed or mass-effect. First day postop, she was continued on NG tube. She was continued on n.p.o. until return of bowel function. There was no NG tube output. NG tube was eventually removed. She was encouraged to ambulate out of bed. She was encouraged to use incentive spirometry. On 05/27/2019, she was started on clear liquid diet. No BM yet. Diet was slowly advanced. She was able to tolerate diet well. She was passing flatus and BM. Family wanted discharged to a SNF. Insurance authorization was obtained and patient was eventually [facility] FINAL DIAGNOSES: Small bowel obstruction status post exploratory laparotomy, lysis of adhesions and small bowel resection Klebsiella urinary tract infection Hyponatremia History of colon cancer Acute kidney injury, resolved Hypokalemia Protein calorie malnutrition DISPOSITION: DC to SNF. DISCHARGE MEDICATIONS: Refer to Discharge Medication List. I have been assigned to complete a discharge summary on this account, I was not involved with the patient's management.--STEVEN Solorzano Jacqueline Robles NP Jun 03, 2019 14:15
== END 2019-06-02 18:20 | DRG 330 ==
LOC: EDBD 22:59 → EMR 23:16 → 4E 05-19 00:13 → EDBEDREQ 05-19 03:36 → 3E 05-21 01:20
PROC: 0DB80ZZ Excision of Small Intestine, Open Approach (ICD-10-PCS; principal; 2019-05-23 16:30)
PROC: 0DN80ZZ Release Small Intestine, Open Approach (ICD-10-PCS; principal; 2019-05-23 16:30)
DX: K56.51 Intestinal adhesions [bands], with partial obstruction (principal); E87.1 Hypo-osmolality and hyponatremia; N17.9 Acute kidney failure, unspecified; N39.0 Urinary tract infection, site not specified; E46 Unspecified protein-calorie malnutrition; Z68.1 Body mass index [BMI] 19.9 or less, adult; Z85.038 Personal history of other malignant neoplasm of large intestine; E87.6 Hypokalemia; I10 Essential (primary) hypertension; F03.90 Unspecified dementia, unspecified severity, without behavioral disturbance, psychotic disturbance, mood disturbance, and anxiety
CPT/HCPCS: 36415; 36600; 70450; 71045; 74018; 74176; 74250; 80048; 80053; 81003; 82140; 82248; 82803; 83690; 83735; 83930; 83935; 84100; 84443; 84484; 84550; 85025; 85610; 85730; 86850; 86900; 86901; 87040; 87086; 87181; 93005; 94003; 94150; 96365; 96375; 99285; J2370; J2405; J2710; J2765; J8499